=== PATIENT | female | born 1970 | race American Indian/Alaskan Native ===

== ENCOUNTER 2019-03-23 05:45 | Inpatient (IN) | payer BC ==
--- NOTE | 2019-03-17 12:18 | Anesthesia Consultation ---
Anesthesia Consult and Med Hx Date of service: 03/17/19 - Airway Anesthetic Teeth Evaluation: Good ROM Head & Neck: Adequate Mental/Hyoid Distance: Adequate Mallampati Class: Class II Intubation Access Assessment: Probably Good - Pulmonary Exam CTA: Yes - Cardiac Exam Cardiac Exam: RRR - Pre-Operative Health Status ASA Pre-Surgery Classification: ASA2 Proposed Anesthetic Plan: General Nerve Block: TAP Block - Pulmonary Hx Smoking: No Hx Respiratory Symptoms: No - Cardiovascular System Hx Hypertension: Yes Hx Heart Attack/AMI: No Hx Percutaneous Transluminal Coronary Angioplasty (PTCA): No Hx Cardia Arrhythmia: No - Central Nervous System CVA: No Hx Psychiatric Problems: No - Gastrointestinal Hx Gastroesophageal Reflux Disease: No - Endocrine Hx Renal Disease: No Hx Liver Disease: No Hx Insulin Dependent Diabetes: No Hx Non-Insulin Dependent Diabetes: No Hx Thyroid Disease: No - Hematic Hx Anemia: Yes - Other Systems Hx Obesity: No - Additional Comments Anesthesia Medical History Comments: No hx anesthetic complications. BP elevated in during preassessment visit however BP well controlled at [employer] visit earlier today. Currently asymptomatic and denies issues with BP control on current regimen. Instructed to take antihypertensives DOS.
[2019-03-17 12:22] LABS: Basophils % (Auto) 0.4 % (0.0-1.8); Eosinophils % (Auto) 0.6 % (0.0-4.3); Hematocrit 34.5 % (30.3-42.9); Hemoglobin 11.8 gm/dl (10.1-14.3); Lymphocytes % (Auto) 16.7 % (13.4-35.0); Mean Corpuscular HGB Conc 34 % (30-34); Mean Corpuscular Volume 93 fl (79-97); Monocytes # (Auto) 0.4 K/mm3 (0.0-0.8); Monocytes % (Auto) 6.8 % (0.0-7.3); Platelet Count 348 K/mm3 (140-440); Red Blood Count 3.71 M/mm3 (3.65-5.03); Red Cell Distribution Width 13.6 % (13.2-15.2)
--- NOTE | 2019-03-22 17:55 | History and Physical Report ---
History of Present Illness Date of examination: 03/17/19 Chief complaint: Severe pelvic pain and abnormal uterine bleeding History of present illness: Past History : 1 Premature Births: 1 Living Children: 1 # 1 Delivery date: 2005 Weeks Gestation: 34 Delivery type: Delivery location: [facility] – [place] Infant Sex: Female Comments: Preeclampsia [employer] History Operations: Endometrial Ablation: (01/07/2017) Vein procedure (2018) (L) Abnormal PAP: negative Infection History HIV Risk Eval: no Hx of STD: None Active Medications (reviewed today): TELMISARTAN TABLET (TELMISARTAN TABS)/HCT 40MG () MULTIVITAMINS ORAL CAPSULE (MULTIPLE VITAMIN) AMLODIPINE BESYLATE TABLET (AMLODIPINE BESYLATE TABS) Current Allergies (reviewed today): IBUPROFEN (Moderate) Past Medical History: Reviewed history from 02/18/2019 and no changes required: Hypertension Diverticulosis Past Surgical History: Reviewed history from 02/18/2019 and no changes required: Endometrial Ablation: (01/07/2017) Vein procedure (2017) (L) Social History: Reviewed history from 01/06/2019 and no changes required: Patient is Smoking History: Patient has never smoked. Risk Factors: Smoked Tobacco Use: Never smoker Smokeless Tobacco Use: Never Passive smoke exposure: no Drug use: no HIV high-risk behavior: no Alcohol use: yes Exercise: no Seatbelt use: 100 % PAP Smear History: Date of Last PAP Smear: 03/11/2018 Mammogram History: Date of Last Mammogram: 03/11/2019 Review of Systems General Denies fever, chills, sweats, anorexia, fatigue, weakness, malaise, weight loss and sleep disorder. Complains of pelvic pain and painful periods. Denies vaginal discharge, incontinence, dysuria, hematuria, urinary frequency, amenorrhea, menorrhagia, abnormal vaginal bleeding, genital sores, decreased libido, painful sex, urinary urgency, hot flashes, vaginal dryness, vaginal itching and vaginal odor. CV Denies chest pains, palpitations, syncope, dyspnea on exertion, orthopnea, PND and peripheral edema. Resp Denies cough, dyspnea at rest, excessive sputum, hemoptysis, wheezing and pleurisy. GI Denies nausea, vomiting, diarrhea, constipation, change in bowel habits, abdominal pain, melena, hematochezia, jaundice, gas/bloating, indigestion/heartburn, dysphagia and odynophagia. Endo Denies cold intolerance, heat intolerance, polydipsia, polyphagia, polyuria and unusual weight change. Breast Denies left breast lump, right breast lump, nipple discharge, bloody discharge from nipple, breast pain, abnormal mammogram and breast enlargement. MS Denies back pain, joint pain, joint swelling, muscle cramps, muscle weakness, stiffness, arthritis, sciatica, restless legs, leg pain at night and leg pain with exertion. Derm Denies rash, itching, dryness and suspicious lesions. Neuro Denies paralysis, paresthesias, headache, seizures, tremors, vertigo, transient blindness, frequent falls, frequent headaches and difficulty walking. Psych Denies depression, anxiety, irritability and mood swings. Eyes Denies blurring, diplopia, irritation, discharge, vision loss, eye pain and photophobia. ENT Denies earache, ear discharge, tinnitus, decreased hearing, nasal congestion, nosebleeds, sore throat and hoarseness. Allergy Denies urticaria, allergic rash, hay fever and recurrent infections. Heme Denies abnormal bruising, bleeding and enlarged lymph nodes. Physical Exam Appearance: well developed, well nourished, no acute distress Other Exams Lungs: no rales, rhonchi, or wheezes Heart: S1, S2, no murmur, rub, or gallop Impression & Recommendations: Problem # 1: Pelvic and perineal pain (ICD-789.00) (SCP12-F42.2) I had another long discussion with her to clearly emphasize that hysterectomy with (B) salpingectomy will alleviate her bleeding however her pain may persist, recur or change in nature, especially if she found to have endometriosis. She states she has pain in her (L) hip that radiates to her left leg when she has her periods. She again declined a trial of GnRH agonist to determine if the pain may be associated with endometrosis. She declines GRACIE's, referral to pain managment and/or ortho. She desires ovarian conservation. She was informed she may require surgery later to have her ovaries removed for a benign or mailgnant condition. Problem # 2: Irregular menses (ICD-626.4) (QNL82-O81.5) Diagnosis explained to patient . Discussed with patient various medical, surgical and radiological therapies common for treatment including, but not limited to, hysterectomy, hormone therapy, laparoscopy. Discussed risks and benefits of laparotomy, laparoscopy, vaginal and robotic assisted approaches for hysterectomies. Patient desires definitive treatment in the form of robot assisted laparoscopic total hysterectomy. The risks and alternatives for this surgery were reviewed with the patient. She was informed of the risks of the surgery including, but not limited to, pain, infection, bleeding possibly heavy enough to require a blood transfusion with associated risks of infections (hepatitis and HIV) and transfusion reactions, possible damage to bowel, bladder or ureter(s). Patient understands that this surgery with make her sterile. Indications to abort a robotic/laparoscopic procedure and perform an open procedure were explained. Patient understands if her ovaries are removed she will become menopausal. Patient advised the small risks of spreading of malignancy if morcellation is required during the surgery patient understands and approves performing if necessary. Questions answered. Consent reviewed and signed The patient was instructed/informed the following: The normal length of hospital stay for this procedure. Nothing to eat or drink after midnight the evening prior to surgery. Clear liquids the day before surgery. Fleets enema the evening prior to surgery Pre-op instruction sheets given. Questions were encouraged and answered. Patient voiced understanding and agrees with plan of care. Counseling and coordination of care was >50% of the face to face time. The total face to face time for this visit was ~40 minutes. Medications Added to Medication List This Visit: 1) Telmisartan Tablet (telmisartan Tabs)/hct 40mg Medications and Allergies Allergies Allergy/AdvReac Type Severity Reaction Status Date / Time No Known Allergies Allergy Unverified 03/11/19 17:56 Home Medications Medication Instructions Recorded Confirmed Last Taken Type Gabapentin [Neurontin] 100 mg PO BID PRN 03/11/19 03/11/19 Unknown History Multivitamin [Multiple Vitamins] 1 each PO DAILY 03/11/19 03/11/19 Unknown History Naproxen [Naprosyn TAB] 500 mg PO BID PRN 03/11/19 03/11/19 Unknown History Telmisartan 40 mg PO DAILY 03/11/19 03/11/19 Unknown History amLODIPine [Norvasc] 5 mg PO DAILY 03/11/19 03/11/19 Unknown History Active Meds: Active Medications Amlodipine Besylate (Norvasc) 5 mg PO DAILY STEFFI Celecoxib (Celebrex) 200 mg PO PREOP NR Stop: 03/23/19 23:00 Fentanyl (Sublimaze) 100 mcg IV ONCE PRN PRN Reason: sedation for nerve block Gabapentin (Neurontin) 300 mg PO PREOP NR Stop: 03/23/19 23:00 Lactated Ringer's (Lactated Ringers) 1,000 mls @ 100 mls/hr IV DIRECT STEFFI Cefazolin Sodium (Ancef/Sterile Water 2 Gm/20 Ml) 2 gm in 20 mls @ 80 mls/hr IV PREOP NR; Protocol Midazolam HCl (Versed) 2 mg IV PREOP NR Stop: 03/23/19 23:01 Miscellaneous Medication (Telmisartan [Telmisartan]) 40 mg PO DAILY STEFFI Exam Vital Signs Temp Pulse Resp BP Pulse Ox 99.1 F 79 20 182/105 99 03/17/19 11:48 03/17/19 11:48 03/17/19 11:48 03/17/19 11:48 03/17/19 11:48 Results - Labs 03/17/19 12:00 Assessment and Plan - Patient Problems (1) 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
[~2019-03-23 05:45] MED LIST: ANCEF/STERILE WATER 2 GM/20 ML 2 GM/20 ML SYRINGE IV NR
[2019-03-23] MEDS ORDERED: VERSED IV NR (06:00)
[2019-03-23] MEDS ORDERED: NEURONTIN PO NR (06:00)
[2019-03-23] MEDS ORDERED: SUBLIMAZE IV PRN (06:00)
[2019-03-23] MEDS ORDERED: LACTATED RINGERS 1,000 ML IV SCH (06:00)
[2019-03-23] MEDS ORDERED: ZEMURON IV ONE (07:13)
[2019-03-23] MEDS ORDERED: XYLOCAINE MPF 2% ONE (07:13)
[2019-03-23] MEDS ORDERED: DILAUDID ONE (07:14)
[2019-03-23] MEDS ORDERED: DIPRIVAN 10 MG/ML IV ONE (07:14)
[2019-03-23] MEDS ORDERED: MARCAINE 0.25% INFILTRATI ONE (07:20)
[2019-03-23] MEDS ORDERED: DECADRON ONE ×2 (07:21→08:21)
[2019-03-23 07:22] LABS: Calcium 9.5 mg/dL (8.4-10.2)
[2019-03-23] MEDS ORDERED: NEOSPORIN GU IR ONE ×2 (07:28→08:50)
--- NOTE | 2019-03-23 07:32 | Anesthesia Day of Surgery ---
Anesthesia Day of Surgery - Day of Surgery Patient Examined: Yes Patient H&P Reviewed: Yes Patient is NPO: Yes
[2019-03-23] MEDS ORDERED: LOPRESSOR IV ONE (08:00)
[2019-03-23] MEDS ORDERED: ZOFRAN ONE (08:21)
[2019-03-23] MEDS ORDERED: NACL 0.9% IR ONE ×2 (08:51)
[2019-03-23] MEDS ORDERED: NON-FORMULARY (Telmisartan [Telmisartan] 40 MG) PO SCH (10:00)
[2019-03-23] MEDS ORDERED: COZAAR PO SCH (10:00)
[2019-03-23] MEDS ORDERED: NORVASC PO SCH (10:00)
[2019-03-23] MEDS ORDERED: ALBURX 25% (ALBUMIN) IV ONE (10:11)
[2019-03-23] MEDS ORDERED: NEO SYNEPHRINE/NS Syringe(OR USE) IV ONE (10:14)
[2019-03-23] MEDS ORDERED: SUBLIMAZE ONE (11:00)
[2019-03-23] MEDS ORDERED: MONSEL'S TP ONE ×2 (11:24→11:25)
[2019-03-23] MEDS ORDERED: ZOFRAN IV PRN (12:11)
[2019-03-23] MEDS ORDERED: REGLAN IV PRN (12:11)
[2019-03-23] MEDS ORDERED: NARCAN 0.4 MG/1 ML IV PRN (12:11)
[2019-03-23] MEDS ORDERED: APRESOLINE ONE (12:12)
[2019-03-23] MEDS: DILAUDID IV PRN ×2 (12:27→12:50)
[2019-03-23] MEDS ORDERED: CATAPRES PO PRN (12:33)
--- NOTE | 2019-03-23 12:37 | Consultation ---
History of Present Illness - Reason for Consult acute renal failure, chronic renal failure Requesting physician: JUAN M MEDLEY - History of Present Illness 48yo female with history of htn, has cr of 2.8 post hysterectomy and appendectomy ROS: General Denies fever, chills, sweats, anorexia, fatigue, weakness, malaise, weight loss and sleep disorder. Complains of pelvic pain and painful periods. Denies vaginal discharge, incontinence, dysuria, hematuria, urinary frequency, amenorrhea, menorrhagia, abnormal vaginal bleeding, genital sores, decreased libido, painful sex, urinary urgency, hot flashes, vaginal dryness, vaginal itching and vaginal odor. CV Denies chest pains, palpitations, syncope, dyspnea on exertion, orthopnea, PND and peripheral edema. Resp Denies cough, dyspnea at rest, excessive sputum, hemoptysis, wheezing and pleurisy. GI Denies nausea, vomiting, diarrhea, constipation, change in bowel habits, abdominal pain, melena, hematochezia, jaundice, gas/bloating, indigestion/heartburn, dysphagia and odynophagia. Endo Denies cold intolerance, heat intolerance, polydipsia, polyphagia, polyuria and unusual weight change. Breast Denies left breast lump, right breast lump, nipple discharge, bloody discharge from nipple, breast pain, abnormal mammogram and breast enlargement. MS Denies back pain, joint pain, joint swelling, muscle cramps, muscle weakness, stiffness, arthritis, sciatica, restless legs, leg pain at night and leg pain with exertion. Derm Denies rash, itching, dryness and suspicious lesions. Neuro Denies paralysis, paresthesias, headache, seizures, tremors, vertigo, transient blindness, frequent falls, frequent headaches and difficulty walking. Psych Denies depression, anxiety, irritability and mood swings. Eyes Denies blurring, diplopia, irritation, discharge, vision loss, eye pain and photophobia. ENT Denies earache, ear discharge, tinnitus, decreased hearing, nasal con gestion, nosebleeds, sore throat and hoarseness. Allergy Denies urticaria, allergic rash, hay fever and recurrent infections. Heme Denies abnormal bruising, bleeding and enlarged lymph nodes. Past History Past Medical History: hypertension Past Surgical History: Social history: denies: prescription drug abuse, IV drug use Family history: hypertension Medications and Allergies Allergies Allergy/AdvReac Type Severity Reaction Status Date / Time No Known Allergies Allergy Unverified 03/11/19 17:56 Home Medications Medication Instructions Recorded Confirmed Last Taken Type Gabapentin [Neurontin] 100 mg PO BID PRN 03/11/19 03/23/19 03/19/19 09:00 History Multivitamin [Multiple Vitamins] 1 each PO DAILY 03/11/19 03/23/19 03/22/19 07:00 History Naproxen [Naprosyn TAB] 500 mg PO BID PRN 03/11/19 03/23/19 03/22/19 07:00 History Telmisartan 40 mg PO DAILY 03/11/19 03/23/19 03/22/19 07:00 History amLODIPine [Norvasc] 5 mg PO DAILY 03/11/19 03/23/19 03/23/19 06:45 History Active Meds: Active Medications Amlodipine Besylate (Norvasc) 5 mg PO DAILY STEFFI Celecoxib (Celebrex) 200 mg PO PREOP NR Stop: 03/23/19 23:00 Last Admin: 03/23/19 06:45 Dose: 200 mg Documented by: Clonidine HCl (Catapres) 0.1 mg PO Q6HR PRN PRN Reason: Hypertension Fentanyl (Sublimaze) 100 mcg IV ONCE PRN PRN Reason: sedation for nerve block Last Admin: 03/23/19 07:19 Dose: 100 mcg Documented by: Gabapentin (Neurontin) 300 mg PO PREOP NR Stop: 03/23/19 23:00 Last Admin: 03/23/19 06:45 Dose: 300 mg Documented by: Hydralazine HCl (Apresoline) 10 mg IV ONCE ONE Stop: 03/23/19 13:12 Hydromorphone HCl (Dilaudid) 0.5 mg IV Q10MIN PRN PRN Reason: Pain , Severe (7-10) Stop: 03/23/19 16:00 Lactated Ringer's (Lactated Ringers) 1,000 mls @ 100 mls/hr IV DIRECT STEFFI Last Admin: 03/23/19 06:55 Dose: 100 mls/hr Documented by: Cefazolin Sodium (Ancef/Sterile Water 2 Gm/20 Ml) 2 gm in 20 mls @ 80 mls/hr IV PREOP NR; Protocol Stop: 03/23/19 23:00 Sodium Chloride (Nacl 0.9% 1000 Ml) 1,000 mls @ 42 mls/hr IV DIRECT STEFFI Metoclopramide HCl (Reglan) 10 mg IV Q6H PRN PRN Reason: N/V if NPO. Midazolam HCl (Versed) 2 mg IV PREOP NR Stop: 03/23/19 23:01 Last Admin: 03/23/19 07:19 Dose: 2 mg Documented by: Morphine Sulfate (Morphine Car Icer 30mg/30ml) 0 mg IV DIRECT STEFFI; Protocol Naloxone HCl (Narcan 0.4 Mg/1 Ml) 0.1 mg IV Q2MIN PRN PRN Reason: Res Rate </= 8 or 02 SAT < 92% Ondansetron HCl (Zofran) 4 mg IV Q8H PRN PRN Reason: N/V unrelieved by Reglan Exam - Vital Signs Vital signs: Vital Signs Temp Pulse Resp BP Pulse Ox 99.1 F 79 20 182/105 99 03/17/19 11:48 03/17/19 11:48 03/17/19 11:48 03/17/19 11:48 03/17/19 11:48 - General Appearance General appearance: well-developed, well-nourished, appears stated age EENT: PERRL, mucous membranes moist Neck: Present: neck supple, trachea midline. Absent: JVD/HJR, Masses Respiratory: Clear to Ascultation Heart: regular, S1S2 Gastrointestinal: Present: hypoactive bowel sounds Integumentary: no rash, warm and dry Neurologic: no focal deficit, alert and oriented x3, gait normal, strength 5/5 Musculoskeletal: Absent: deformities, joint swelling Psychiatric: mood/affect appropriate, cooperative Results - Lab Results 03/17/19 12:00 03/23/19 06:45 Most recent lab results Calcium 9.5 mg/dL (8.4-10.2) 03/23/19 06:45 Assessment and Plan Impression: * SULTANA on ?ckd * accelerated htn * s/p hysterectomy * bacteruria Plan: * gentle ivfs * control bp, stop daja and avoid nephrotoxins * follow up renal us and lytes * ua noted, iv abx, received ancef, would benefit from gram neg coverage, rocephin for now * strict i/os and daily lytes * 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
--- NOTE | 2019-03-23 12:40 | Post Operative Note ---
Pre-op diagnosis: pelvic pain, AUB Post-op diagnosis: other (stage IV endometriosis, renal disease, uncontrolled hypertension) Findings: stage IV endometriosis, Procedure: robotic assisted hysterectomy converted to abdominal supracervical hysterectomy (B) salpingectomy (R) ovarian cystectomy appendectomy Friable posterior vaginal cul-de-sac tissue Repair rectal colon serosal denuded tissue Anesthesia: GETA Surgeon: JUAN M MEDLEY (Gene Queendar) Estimated blood loss: other (600mL) Pathology: list (uterus, internal cervical os, (B) fallopian tubes, (R) ovarian cyst, appendix, vaginal tissue) Specimen disposition: to lab Condition: stable Disposition: PACU
[2019-03-23] MEDS ORDERED: MORPHINE PCA 30MG/30ML IV SCH (13:00)
[2019-03-23] MEDS ORDERED: NACL 0.9% 1000 ML 1,000 ML IV SCH ×2 (13:00→22:00)
[2019-03-23] MEDS ORDERED: APRESOLINE IV ONE (13:11)
[2019-03-23 14:10] LABS: Bacteria,Urine 1+ /HPF (Negative); Bilirubin,Urine NEG (Negative); Blood,Urine SM (Negative); Color,Urine Straw (Yellow); Protein,Urine <15 mg/dL mg/dL (Negative); Urobilinogen,Urine < 2.0 mg/dL (<2.0)
[2019-03-23 14:17] LABS: Creatinine,Urine 54.1 mg/dL (0.1-20.0)
[2019-03-23] MEDS ORDERED: SODIUM CHLORIDE FLUSH SYRINGE 10 ML IV PRN (14:51)
[2019-03-23] MEDS ORDERED: CALAN IV ONE (14:54)
[2019-03-23] MEDS ORDERED: MORPHINE ONE (15:06)
[2019-03-23] MEDS: MORPHINE IV SCH ×3 (15:06→23:59)
--- NOTE | 2019-03-23 16:31 | Operative Report ---
Operative Report Operative Report: Date: 03/23/2019 Preoperative diagnosis: 1. Severe pelvic pain 2. Abnormal uterine bleeding Postoperative diagnosis: 1. Severe pelvic pain 2. Abnormal uterine bleeding 3. Stage IV endometriosis A. Obliteration of the posterior cul-de-sac with dense adhesions B. Endometriotic implants involving the pelvic sidewalls, ovaries, left fallopian tube, bladder, possible appendix 4. Right ovarian endometriomas 5. Elevated blood pressures 6. Elevated creatinine 7. Abnormal appearing appendix 8. Friable vaginal tissue involving the posterior and right lateral fornices 9. Superficial serosal tear of the sigmoid colon Procedure: 1. Robot-assisted laparoscopic hysterectomy converted to abdominal supracervical hysterectomy 2. Bilateral salpingectomy 3. Right ovarian cystectomy 4. Appendectomy 5. Lysis of adhesions 6. Repair of colon serosal tear Surgeon: 1. Rebeca Fuentes MD 2. Silvina Queen MD 3. Jeremy De Los Santos M.D. Supervisory Clerk: Anesthesiologist: Markus Wiggins M.D. Anesthesia: General endotracheal anesthesia EBL: Approximately 600 mL Findings: See above Procedure: Patient was taken to the OR and placed in the supine position. General anesthesia was induced and an oral gastric tube was placed. Her neck and head were placed on foam support. Foam eye protection with goggles were secured in place. Then foam face protection was placed and secured. Foam shoulder pads were then positioned on her shoulders for Trendelenburg positioning. She was then placed in dorsolithotomy position. Exam under anesthesia firmness in the posterior vaginal fornix, fixed uterus, no adnexal masses palpated, friable tissue of the posterior right lateral vaginal fornices. The abdomen and vagina were then prepped and draped in the usual sterile fashion. Timeout was performed. A Vela catheter was inserted into the bladder with drainage of clear yellow urine. The operative speculum was introduced into the vagina and the anterior lip of the cervix was grasped with single-toothed tenaculum. The uterus was sounded to 8 cm. The cervix was progressively dilated to allow the large V care uterine manipulator. The bulb of the manipulator was inflated and the speculum and tenaculum were removed. The cup of the manipulator was placed around the cervix and the blue occluder of the manipulator was properly positioned in the vagina. A laparotomy sponge that was saturated with a solution of polymyxin and saline was placed in the vagina to ensure pneumoperitoneum. Sterile gloves were placed and attention was turned to the abdomen. A 10 mm vertical supraumbilical incision was made approximately 10 cm superior to the elevated fundus of the uterus. A 10 mm trocar with the laparoscope and camera attached was introduced through this incision under direct visualization. The abdomen was insufflated. No obvious bowel, bladder, ureteral, or major vascular injury was noted. The patient was then placed in steep Trendelenburg position and the following trochars were placed under direct visualization: 8 mm robotic trochars were placed through incisions made in the bilateral midclavicular lower abdominal region approximately 10 cm lateral and approximately 2 cm below the midline incision, and a 5 mm trocar was placed through an incision made in the right lower lateral pelvis approximately 2 cm superior to the iliac crest. The 10 mm laparoscope was then replaced by a 5 mm laparoscope that was placed through the 5 millimeter lateral trocar. The 12 mm trocar was then removed in the Ravi Lau fascial closure device was placed through the incision and a 0 Vicryl was placed through the fascia. Once the suture was secured the 12 mm trocar was reintroduced. Once the trochars were in the appropriate positions, the the da Antonio robot system was engaged. The EndoShears and bipolar device was placed through the 8 mm trochars and positioned then attention was turned to the console. The uterus was elevated and bilateral salpingectomy was performed. Each tube was removed through the 5 mm trocar and sent to pathology in separate containers. Then the utero-ovarian ligaments were clamped. cauterized and incised bilaterally using 30 W of energy. Then the round ligaments were clamped, cauterized and incised bilaterally. The anterior leaf of the broad ligament was elevated and careful blunt and sharp dissection the bladder flap was created and dissected away from the lower uterine segment and cervix. The right ovary was densely adhered to the posterior aspect of the uterus. With both blunt and sharp dissection ovary was released. During the release of the ovary dark thick fluid released consistent with endometrioma. The pelvis was irrigated with warm normal saline. Once the ovary was released it was clear that the sigmoid colon was densely adhered to the posterior aspect of the uterus and cervix. Due to concerns for visualization and therefore injury to the sigmoid colon at Dr. De Los Santos was consulted. Upon inspection there was concern that proceeding laparoscopically with increase her risk for sigmoid colon injury, therefore decision was made to convert to laparotomy. The robot was disengaged, the instruments were removed, the abdomen was desufflated and the trochars were removed. After an appropriate count of instruments and sponges and patient was taken out of Trendelenburg position, a Pfannenstiel incision was made and extended to the fascia which was incised and extended lateral direction. The overlying fascia was sharply dissected away from underlying rectus muscles and superior inferior direction. The midline was entered with blunt and sharp dissection. The O'Larry-O'Tobias self-retaining tractor was placed. Small intestines were placed into the upper abdomen with most laparotomy sponges and retained in place with the abdominal retractor. The bladder blade was placed. Uterus was grasped single tooth tenaculum and elevated. The bladder was further dissected off the lower uterine segment and cervix with both blunt and sharp dissection. The uterine vessels were then clamped cut and suture ligated bilaterally. The excessively dense adhesions in the posterior cul-de-sac were palpated and dissected away from the lower uterine segment and cervix with sharp dissection. At this point the cardinal ligaments were clamped cut and suture ligated bilaterally. Due to further concern for injury to the sigmoid colon further dissection was performed in order to remove the cervix, the decision was made to perform supracervical hysterectomy. The uterus and internal cervical os were excised. The cervix was grasped with single-toothed tenaculum, the remaining cervical os was ablated using 40 W of energy and suture ligated with 0 Vicryl in multiple interrupted [id number] stitches. Normal saline was placed in the pelvis and air was placed in the rectum with an Asepto syringe. No air bubbles were noted in the fluid. This point Dr. De Los Santos presented in order to inspect the colon and appendix (please see his dictation). Attention was turned again to the pelvis. The pelvis was irrigated with warm saline. Hemostasis is noted. Jose was placed ensure hemostasis. Attention was then turned to the enlarged right ovary where another cyst was palpated and cystectomy was performed. The ovary was made hemostatic with 3-0 Vicryl in a running interlocking stitch. Interceed was placed in the pelvis. Once hemostasis is noted procedure was ended. The O'Larry-O'Tobias self-retaining retractor was removed. Laparotomy sponge count was performed and noted to be correct. The patient was taken to Trendelenburg position and the rectus muscles were approximated using 0 Vicryl interrupted simple stitchx3 . Once hemostasis was noted the fascia was reapproximated using 0 Vicryl in a simple running stitch from lateral to midline. This incision was then reapproximated using 4-0 Vicryl in a subcuticular manner. The laparotomy incisions were reapproximated using 4-0 Monocryl also in a subcuticular manner. Attention was then turned to the vagina where moderate amount of bleeding was noted. The speculum was placed in the cervix itself was normal with no bleeding. However there was multiple areas involving the posterior fornix and lateral fornix of the vagina had a steady flow of bleeding that was made hemostatic with Monsel solution and pressure. Once hemostasis was noted, the procedure was ended, clear yellow urine was noted to drain into the Vela catheter. Patient was taken to recovery room stable condition.
[2019-03-23] MEDS: D5/0.45NS 1,000 ML IV SCH (17:45)
--- NOTE | 2019-03-23 20:43 | Event Note ---
Date: 03/23/19 DOS: Patient resting in bed, alert and appropriately responsive. Requesting ice chips. +BS slightly decreased, Incision c/d/i, scant brownisn discharge on pad. no evidence of active bleeding. Operative findings and procedures explained. Plan of care discussed. Questions encouraged and answered. She voiced understanding and agrees with plan of care.
--- NOTE | 2019-03-23 20:58 | Event Note ---
Date: 03/23/19 UO 250mL, clear yellow, patient states sprague was emptied by Latoya this pm however no documentation found. Will continue close observation.
[2019-03-23] MEDS ORDERED: NEURONTIN PO PRN (21:28)
[2019-03-23] MEDS ORDERED: CATAPRES-TTS PATCH TD SCH (22:00)
--- NOTE | 2019-03-23 22:28 | Event Note ---
Date: 03/23/19 Gen Surg Dictation#[id number]
[2019-03-23] MEDS: ANCEF/NS 1 GM/50 ML 1 GM/50 ML BAG IV SCH (22:32)
[2019-03-23] MEDS: SODIUM CHLORIDE FLUSH SYRINGE 10 ML IV SCH (22:34)
--- NOTE | 2019-03-23 22:56 | Operative Report ---
PREOPERATIVE DIAGNOSIS: Serosal tear of rectum. POSTOPERATIVE DIAGNOSIS: Serosal tear of rectum. PROCEDURES: 1. Repair of serosal injury to rectum. 2. Appendectomy. ATTENDING PHYSICIAN: Jeremy De Los Santos MD ANESTHESIA: General. ESTIMATED BLOOD LOSS: Minimal. FINDINGS: The patient had extensive endometriosis changes and adhesions in the pelvis. The distal portion of the rectum was densely adhered to the anterior pelvic wall. There were small serosal tears noted on the anterior surface of the rectum. The appendix appeared as it had some mild superficial inflammatory changes that were felt to be on the surface, perhaps related to her endometriosis. SPECIMEN: Appendix. DRAINS: None. COMPLICATIONS: Stable, transferred to Recovery. INDICATIONS: This is a 48-year-old female who presented electively for robotic hysterectomy. I was called in twice to the case. The first time is to see if a plane could be developed with the robot between the rectum and the uterus. At that point, the decision was made to convert to an open case due to the dense adhesions and then I was called the second time in to evaluate the rectum for a possible serosal injury. The patient was already on the table and under anesthesia. Therefore, I could not speak to her beforehand. OPERATIVE NOTE: I scrubbed into the case, the second time, the first time, I simply was on the console and evaluated the rectal area. My assessment was that with the blood that was obscuring the view, it would be a difficult dissection and risky, therefore it may be best to convert to open, which Dr. Fuentes did. I then returned later after the uterus had been removed to evaluate the rectum, distally there did appear to be some small serosal injuries. It was difficult to tell what was serosa versus what were adjacent fibrotic tissue, as a precaution where it looked to be serosal injuries, I reinforced that area with a 3-0 silk stitch. There were two areas that I reinforced. Of note, Dr. Fuentes had tested the rectum by insufflating air through the rectum and having water in the pelvis. She reports that there was no bubbling of air. There was no suggestion of any leak. Therefore, we felt comfortable that this was just a partial thickness injury. After that was done, everything looked very good. We then turned our attention to the appendix. Our discussion was that as this patient has chronic pelvic pain, one day, she may have a situation, whereby someone is concerned that the appendix is causing the problem. This would be a very difficult abdomen to get back into. We have very easy access to the appendix right now as it is clearly in our view. I thought that to safer another operation and the risk was minimal to remove it that it would be best to remove it now and take it out of the equation in the future, so she does not have a potential unnecessary operation. Therefore, Dr. Fuentes and I agreed that we should just move forward with appendectomy. I dissected out the mesoappendix at the base of the appendix. Mesoappendix was clamped with a right angle clamp. The base of the appendix was clamped that portion of the appendix was crushed and then the clamp was moved upward. Another clamp was placed on the inferior aspect. Appendix was divided. The mesoappendix was ligated with a 2-0 silk suture using a Savanna stitch and then the tissue was sharply divided. Specimen was passed off the table in sterile fashion. We had good hemostasis at the mesoappendix. I used a 3-0 Prolene stitch to ligate the base of the appendix. We cauterized the exposed mucosa and then I used another 3-0 Prolene to create a pursestring suture around the base and then we dunked and then we invaginated the base and tied down the suture to reinforce this area, I put two more sutures closing the overlying bowel to reinforce that area. Everything looked very good. We had good hemostasis. There were no other issues. The case was turned back over to Dr. Fuentes. JOB# [id number] ERIKA/NÉSTOR SALAS
[2019-03-24] MEDS: MORPHINE IV SCH (04:36)
[2019-03-24] MEDS: ANCEF/NS 1 GM/50 ML 1 GM/50 ML BAG IV SCH (04:40)
[2019-03-24 06:14] LABS: Basophils % (Auto) 0.1 % (0.0-1.8); Hematocrit 25.1 % (30.3-42.9); Hemoglobin 8.5 gm/dl (10.1-14.3); Lymphocytes # (Auto) 0.7 K/mm3 (1.2-5.4); Lymphocytes % (Auto) 7.1 % (13.4-35.0); Mean Corpuscular HGB Conc 34 % (30-34); Mean Corpuscular Volume 94 fl (79-97); Monocytes % (Auto) 11.1 % (0.0-7.3); Platelet Count 297 K/mm3 (140-440); Red Blood Count 2.67 M/mm3 (3.65-5.03); Red Cell Distribution Width 13.3 % (13.2-15.2)
[2019-03-24] MEDS: D5/0.45NS 1,000 ML IV SCH (06:31)
[2019-03-24 06:38] LABS: Albumin 3.7 g/dL (3.9-5); Calcium 8.6 mg/dL (8.4-10.2)
--- NOTE | 2019-03-24 07:20 | Consultation ---
History of Present Illness - Reason for Consult Consult date: 03/23/19 Medical management Requesting physician: JUAN M MEDLEY - History of Present Illness FOr medical managemt of HTn and ARF Patient is s/p robotic assisted hysterectomy converted to abdominal suprac ervical hysterectomy (B) salpingectomy (R) ovarian cystectomy appendectomy Friable posterior vaginal cul-de-sac tissue Repair rectal colon serosal denuded tissue Post op doing well. Past History Past Medical History: hypertension Past Surgical History: Social history: denies: prescription drug abuse, IV drug use Family history: hypertension Medications and Allergies Allergies Allergy/AdvReac Type Severity Reaction Status Date / Time No Known Allergies Allergy Unverified 03/11/19 17:56 Home Medications Medication Instructions Recorded Confirmed Last Taken Type Gabapentin [Neurontin] 100 mg PO BID PRN 03/11/19 03/23/19 03/19/19 09:00 History Multivitamin [Multiple Vitamins] 1 each PO DAILY 03/11/19 03/23/19 03/22/19 07:00 History Naproxen [Naprosyn TAB] 500 mg PO BID PRN 03/11/19 03/23/19 03/22/19 07:00 History Telmisartan 40 mg PO DAILY 03/11/19 03/23/19 03/22/19 07:00 History amLODIPine [Norvasc] 5 mg PO DAILY 03/11/19 03/23/19 03/23/19 06:45 History Active Meds: Active Medications Amlodipine Besylate (Norvasc) 5 mg PO DAILY [facility] Clonidine HCl (Catapres) 0.1 mg PO Q6HR PRN PRN Reason: Hypertension Clonidine HCl (Catapres-Tts Patch) 0.1 mg TD [facility] Last Admin: 03/23/19 22:33 Dose: 0.1 mg Documented by: Gabapentin (Neurontin) 100 mg PO BID PRN PRN Reason: Pain , Severe (7-10) Dextrose/Sodium Chloride (D5/0.45ns) 1,000 mls @ 75 mls/hr IV DIRECT [facility] Last Admin: 03/24/19 06:31 Dose: 75 mls/hr Documented by: Metoclopramide HCl (Reglan) 10 mg IV Q6H PRN PRN Reason: N/V if NPO. Morphine Sulfate (Morphine Cremator 30mg/30ml) 0 mg IV DIRECT STEFFI; Protocol Morphine Sulfate (Morphine) 2 mg IV Q4H PRN PRN Reason: Pain, Moderate (4-6) Naloxone HCl (Narcan 0.4 Mg/1 Ml) 0.1 mg IV Q2MIN PRN PRN Reason: Res Rate </= 8 or 02 SAT < 92% Ondansetron HCl (Zofran) 4 mg IV Q8H PRN PRN Reason: N/V unrelieved by Reglan Pantoprazole Sodium (Protonix) 40 mg IV QDAY STEFFI Sodium Chloride (Sodium Chloride Flush Syringe 10 Ml) 10 ml IV BID STEFFI Last Admin: 03/23/19 22:34 Dose: 10 ml Documented by: Sodium Chloride (Sodium Chloride Flush Syringe 10 Ml) 10 ml IV PRN PRN PRN Reason: LINE FLUSH Review of Systems All systems: negative Exam - Constitutional Vitals: Temp Pulse Resp BP Pulse Ox 98.7 F 107 H 22 152/101 100 03/24/19 04:00 03/24/19 04:00 03/24/19 04:36 03/23/19 22:33 03/24/19 04:00 General appearance: Present: no acute distress, well-nourished - EENT Eyes: Present: PERRL ENT: hearing intact, clear oral mucosa - Neck Neck: Present: supple, normal ROM - Respiratory Respiratory effort: normal Respiratory: bilateral: CTA - Cardiovascular Heart rate: 78 Rhythm: regular Heart Sounds: Present: S1 & S2. Absent: rub, click - Extremities Extremities: no ischemia, pulses intact, pulses symmetrical, No edema Peripheral Pulses: within normal limits - Abdominal General gastrointestinal: Present: soft, tender, non-distended, normal bowel sounds, hypoactive bowel sounds Female genitourinary: Present: normal - Rectal Rectal Exam: deferred - Integumentary Integumentary: Present: clear, warm, dry - Musculoskeletal Musculoskeletal: gait normal, strength equal bilaterally - Psychiatric Psychiatric: appropriate mood/affect, intact judgment & insight - Neurologic Neurologic: CNII-XII intact, moves all extremities Results - Labs CBC & Chem 7: 03/24/19 06:04 03/24/19 06:04 Labs: Abnormal lab results 03/23/19 03/23/19 03/23/19 Range/Units 06:45 13:40 13:40 RBC (3.65-5.03) M/mm3 Hgb (10.1-14.3) gm/dl Hct (30.3-42.9) % Lymph % (Auto) (13.4-35.0) % [place] % (Auto) (0.0-7.3) % Lymph # (1.2-5.4) K/mm3 [place] # (0.0-0.8) K/mm3 Seg Neutrophils % (40.0-70.0) % BUN 30 H (7-17) mg/dL Creatinine 2.8 H (0.7-1.2) mg/dL Glucose (65-100) mg/dL Albumin (3.9-5) g/dL Urine WBC (Auto) 9.0 H (0.0-6.0) /HPF Urine Creatinine 54.1 H (0.1-20.0) mg/dL 03/24/19 03/24/19 Range/Units 06:04 06:04 RBC 2.67 L (3.65-5.03) M/mm3 Hgb 8.5 L (10.1-14.3) gm/dl Hct 25.1 L (30.3-42.9) % Lymph % (Auto) 7.1 L (13.4-35.0) % [place] % (Auto) 11.1 H (0.0-7.3) % Lymph # 0.7 L (1.2-5.4) K/mm3 [place] # 1.0 H (0.0-0.8) K/mm3 Seg Neutrophils % 81.7 H (40.0-70.0) % BUN 29 H (7-17) mg/dL Creatinine 2.7 H (0.7-1.2) mg/dL Glucose 131 H (65-100) mg/dL Albumin 3.7 L (3.9-5) g/dL Urine WBC (Auto) (0.0-6.0) /HPF Urine Creatinine (0.1-20.0) mg/dL EKG SINUS RHYTHM VENTRICULAR PREMATURE COMPLEX LEFT BUNDLE BRANCH BLOCK ST ELEVATION SECONDARY TO IVCD Assessment and Plan - Patient Problems (1) HTN (hypertension) Current Visit: Yes Status: Chronic Qualifiers: Hypertension type: essential hypertension Qualified Code(s): I10 - Essential (primary) hypertension Plan to address problem: Patient initiated on Catapress patch No oral antihypertensives (2) SULTANA (acute kidney injury) Current Visit: Yes Status: Acute Plan to address problem: IV fluids for now Nephrology consult requested (3) DVT prophylaxis Current Visit: Yes Status: Acute Plan to address problem: On SCD's and GI prophylaxis
[2019-03-24] MEDS ORDERED: APRESOLINE IV PRN (07:27)
--- NOTE | 2019-03-24 07:30 | Progress Note ---
Assessment and Plan Assessment and plan: --Hypertension; moderate control Continue clonidine, IV hydralazine PRN for BP more than 155/90 Closely monitor --Acute renal failure; vasomotor nephropathy Mild improvement, gentle hydration, avoid nephrotoxins Follow up nephrology evaluation and recommendations Renal ultrasound if no improvement --Continue; hemoglobin dropped from 11.8-8.5 postoperatively Closely monitor H&H and transfuse as needed --Pelvic pain and abnormal uterine bleeding ; s/p robotic assisted hysterectomy converted to abdominal supracervical hysterectomy (B) salpingectomy (R) ovarian cystectomy appendectomy Friable posterior vaginal cul-de-sac tissue Repair rectal colon serosal denuded tissue Management per BREWING TECHNICIAN. --s/p appendectomy: Continue postop care per surgery --DVT prophylaxis; SCD --Obesity; BMI 30.5, advised weight reduction when medically stable Plan of care is reviewed with patient and her nurse History Interval history: Patient's exam and medical records reviewed Patient feels slightly better complaints of some pain in the abdomen Vital signs noted Hospitalist Physical - Constitutional Vitals: Temp Pulse Resp BP Pulse Ox 98.7 F 107 H 22 152/101 100 03/24/19 04:00 03/24/19 04:00 03/24/19 04:36 03/23/19 22:33 03/24/19 04:00 General appearance: Present: no acute distress, well-nourished - EENT Eyes: Present: PERRL, EOM intact - Neck Neck: Present: supple, normal ROM - Respiratory Respiratory effort: normal Respiratory: bilateral: diminished, negative: rales, rhonchi, wheezing - Cardiovascular Rhythm: regular Heart Sounds: Present: S1 & S2 - Extremities Extremities: no ischemia, No edema - Abdominal General gastrointestinal: soft, non-tender, non-distended, absent bowel sounds - Integumentary Integumentary: Present: clear, warm - Psychiatric Psychiatric: appropriate mood/affect, cooperative - Neurologic Neurologic: moves all extremities Results - Labs CBC & Chem 7: 03/24/19 19:07 03/24/19 06:04 Labs: Laboratory Last Values WBC 9.3 K/mm3 (4.5-11.0) 03/24/19 06:04 RBC 2.67 M/mm3 (3.65-5.03) L 03/24/19 06:04 Hgb 8.5 gm/dl (10.1-14.3) L 03/24/19 06:04 Hct 25.1 % (30.3-42.9) L 03/24/19 06:04 MCV 94 fl (79-97) 03/24/19 06:04 MCH 32 pg (28-32) 03/24/19 06:04 MCHC 34 % (30-34) 03/24/19 06:04 RDW 13.3 % (13.2-15.2) 03/24/19 06:04 Plt Count 297 K/mm3 (140-440) 03/24/19 06:04 Lymph % (Auto) 7.1 % (13.4-35.0) L 03/24/19 06:04 [place] % (Auto) 11.1 % (0.0-7.3) H 03/24/19 06:04 Eos % (Auto) 0.0 % (0.0-4.3) 03/24/19 06:04 Baso % (Auto) 0.1 % (0.0-1.8) 03/24/19 06:04 Lymph # 0.7 K/mm3 (1.2-5.4) L 03/24/19 06:04 [place] # 1.0 K/mm3 (0.0-0.8) H 03/24/19 06:04 Eos # 0.0 K/mm3 (0.0-0.4) 03/24/19 06:04 Baso # 0.0 K/mm3 (0.0-0.1) 03/24/19 06:04 Seg Neutrophils % 81.7 % (40.0-70.0) H 03/24/19 06:04 Seg Neutrophils # 7.6 K/mm3 (1.8-7.7) 03/24/19 06:04 Sodium 142 mmol/L (137-145) 03/24/19 06:04 Potassium 4.3 mmol/L (3.6-5.0) 03/24/19 06:04 Chloride 103.2 mmol/L (98-107) 03/24/19 06:04 Carbon Dioxide 25 mmol/L (22-30) 03/24/19 06:04 18 mmol/L 03/24/19 06:04 BUN 29 mg/dL (7-17) H 03/24/19 06:04 2.7 mg/dL (0.7-1.2) H 03/24/19 06:04 Estimated GFR 23 ml/min 03/24/19 06:04 11 % 03/24/19 06:04 Glucose 131 mg/dL (65-100) H 03/24/19 06:04 Calcium 8.6 mg/dL (8.4-10.2) 03/24/19 06:04 0.30 mg/dL (0.1-1.2) 03/24/19 06:04 AST 12 units/L (5-40) 03/24/19 06:04 ALT 9 units/L (7-56) 03/24/19 06:04 46 units/L (35-129) 03/24/19 06:04 6.6 g/dL (6.3-8.2) 03/24/19 06:04 3.7 g/dL (3.9-5) L 03/24/19 06:04 1.3 % 03/24/19 06:04 Straw (Yellow) 03/23/19 13:40 Clear (Clear) 03/23/19 13:40 6.0 (5.0-7.0) 03/23/19 13:40 Ur Specific [place] 1.010 (1.003-1.030) 03/23/19 13:40 <15 mg/dl mg/dL (Negative) 03/23/19 13:40 Neg mg/dL (Negative) 03/23/19 13:40 Neg mg/dL (Negative) 03/23/19 13:40 Sm (Negative) 03/23/19 13:40 Neg (Negative) 03/23/19 13:40 Neg (Negative) 03/23/19 13:40 < 2.0 mg/dL (<2.0) 03/23/19 13:40 Ur Leukocyte Esterase Sm (Negative) 03/23/19 13:40 9.0 /HPF (0.0-6.0) H 03/23/19 13:40 9.0 /HPF (0.0-6.0) 03/23/19 13:40 1+ /HPF (Negative) 03/23/19 13:40 54.1 mg/dL (0.1-20.0) H 03/23/19 13:40 74 mmol/L 03/23/19 13:40 Hep Bs Antigen Non-reactive (Negative) 03/23/19 13:28 Non-reactive (NonReactive) 03/23/19 13:28 Blood Type O POSITIVE 03/23/19 06:45 Antibody Screen Negative 03/23/19 06:45 Active Medications - Current Medications Current Medications: Generic Name Dose Route Start Last Admin Trade Name Freq PRN Reason Stop Dose Admin Clonidine HCl 0.1 mg 03/23/19 12:33 Catapres PO Q6HR PRN Hypertension Clonidine HCl 0.1 mg 03/23/19 22:00 03/23/19 22:33 Catapres-Tts Patch TD 0.1 mg Tu STEFFI Administration Gabapentin 100 mg 03/23/19 21:28 Neurontin PO BID PRN Pain , Severe (7-10) Dextrose/Sodium Chloride 1,000 mls @ 75 mls/hr 03/23/19 17:00 03/24/19 06:31 D5/0.45ns IV 75 mls/hr DIRECT STEFFI Administration Metoclopramide HCl 10 mg 03/23/19 12:11 Reglan IV Q6H PRN N/V if NPO. Morphine Sulfate 0 mg 03/23/19 13:00 Morphine Bread Icer 30mg/30ml IV DIRECT STEFFI Protocol Morphine Sulfate 2 mg 03/24/19 07:00 Morphine IV Q4H PRN Pain, Moderate (4-6) Naloxone HCl 0.1 mg 03/23/19 12:11 Narcan 0.4 Mg/1 Ml IV Q2MIN PRN Res Rate </= 8 or 02 SAT < 92% Ondansetron HCl 4 mg 03/23/19 12:11 Zofran IV Q8H PRN N/V unrelieved by Reglan Pantoprazole Sodium 40 mg 03/24/19 10:00 Protonix IV QDAY STEFFI Sodium Chloride 10 ml 03/23/19 22:00 03/23/19 22:34 Sodium Chloride Flush Syringe 10 Ml IV 10 ml BID STEFFI Administration Sodium Chloride 10 ml 03/23/19 14:51 Sodium Chloride Flush Syringe 10 Ml IV PRN PRN LINE FLUSH
--- NOTE | 2019-03-24 08:37 | Progress Note ---
Assessment and Plan - Patient Problems (1) S/P abdominal supracervical subtotal hysterectomy Current Visit: Yes Status: Acute Plan to address problem: POD#1 Doing well Slight tachycardia probably d/t EBL. No evidence of active bleeding. UO good, clear yellow(patient states sprague was emptied last pm and according to pm RN volume not documented) Will advance diet with flatus or sooner if ok with Dr. Burr (2) HTN (hypertension) Current Visit: Yes Status: Chronic Qualifiers: Hypertension type: essential hypertension Qualified Code(s): I10 - Essential (primary) hypertension Plan to address problem: BP's' much improved. Will transfer to floor if ok with Drs. Florian and Nehemias (3) SULTANA (acute kidney injury) Current Visit: Yes Status: Acute Plan to address problem: Continue care per Dr. 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 Subjective Date of service: 03/24/19 Patient Reports: Positive: no new complaints, no flatus, afebrile Objective Vital Signs - 12hr 03/23/19 03/23/19 03/23/19 20:59 22:00 22:33 Temperature Pulse Rate 112 H 114 H Pulse Rate [ Radial] Respiratory Rate Blood Pressure 152/101 O2 Sat by Pulse 100 Oximetry 03/23/19 03/24/19 03/24/19 23:59 00:00 04:00 Temperature 98.5 F 98.7 F Pulse Rate Pulse Rate [ 109 H 107 H Radial] Respiratory 22 19 20 Rate Blood Pressure O2 Sat by Pulse 100 100 Oximetry 03/24/19 04:36 Temperature Pulse Rate Pulse Rate [ Radial] Respiratory 22 Rate Blood Pressure O2 Sat by Pulse Oximetry - General physical appearance well developed, well nourished, no distress - Respiratory normal expansion, normal respiratory effort, clear to auscultation - Abdomen soft, bowel sounds hypoactive, not distended, not rebound, not guarding, wound (c/d/i, no s/s infection) - Genitourinary other (nothing on peripad, pad changed this am, use same pad all night with only scant brownis d/c according to patient) - Psychiatric oriented to person, oriented to place, speech is normal - Labs 03/24/19 06:04 03/24/19 06:04 Diabetes panel 03/24/19 Range/Units 06:04 Sodium 142 (137-145) mmol/L Potassium 4.3 (3.6-5.0) mmol/L Chloride 103.2 (98-107) mmol/L Carbon Dioxide 25 (22-30) mmol/L BUN 29 H (7-17) mg/dL Creatinine 2.7 H (0.7-1.2) mg/dL Glucose 131 H (65-100) mg/dL Calcium 8.6 (8.4-10.2) mg/dL AST 12 (5-40) units/L ALT 9 (7-56) units/L Alkaline Phosphatase 46 (35-129) units/L Total Protein 6.6 (6.3-8.2) g/dL Albumin 3.7 L (3.9-5) g/dL Calcium panel 03/24/19 Range/Units 06:04 Calcium 8.6 (8.4-10.2) mg/dL Albumin 3.7 L (3.9-5) g/dL Pituitary panel 03/24/19 Range/Units 06:04 Sodium 142 (137-145) mmol/L Potassium 4.3 (3.6-5.0) mmol/L Chloride 103.2 (98-107) mmol/L Carbon Dioxide 25 (22-30) mmol/L BUN 29 H (7-17) mg/dL Creatinine 2.7 H (0.7-1.2) mg/dL Glucose 131 H (65-100) mg/dL Calcium 8.6 (8.4-10.2) mg/dL Adrenal panel 03/24/19 Range/Units 06:04 Sodium 142 (137-145) mmol/L Potassium 4.3 (3.6-5.0) mmol/L Chloride 103.2 (98-107) mmol/L Carbon Dioxide 25 (22-30) mmol/L BUN 29 H (7-17) mg/dL Creatinine 2.7 H (0.7-1.2) mg/dL Glucose 131 H (65-100) mg/dL Calcium 8.6 (8.4-10.2) mg/dL Total Bilirubin 0.30 (0.1-1.2) mg/dL AST 12 (5-40) units/L ALT 9 (7-56) units/L Alkaline Phosphatase 46 (35-129) units/L Total Protein 6.6 (6.3-8.2) g/dL Albumin 3.7 L (3.9-5) g/dL
[2019-03-24] MEDS ORDERED: NEURONTIN PO PRN (09:30)
--- NOTE | 2019-03-24 09:31 | Progress Note ---
Assessment and Plan - Patient Problems (1) Serosal tear of colon Current Visit: Yes Status: Acute Plan to address problem: Pt stable. s/p serosal repair of anterior rectal wall. Okay to start clear liquid diet whenever WIRE HANGER is ready. (2) S/P appendectomy Current Visit: Yes Status: Acute Plan to address problem: Discussed the reasoning behind appendectomy. She acknowledged understanding. Subjective Date of service: 03/24/19 Patient Reports: Positive: no new complaints, still having pain, no flatus, other (thirsty. ) Objective Vital Signs - 12hr 03/23/19 03/23/19 03/23/19 22:00 22:33 23:59 Temperature Pulse Rate 112 H 114 H Pulse Rate [ Radial] Respiratory 22 Rate Blood Pressure 152/101 O2 Sat by Pulse Oximetry 03/24/19 03/24/19 03/24/19 00:00 04:00 04:36 Temperature 98.5 F 98.7 F Pulse Rate Pulse Rate [ 109 H 107 H Radial] Respiratory 19 20 22 Rate Blood Pressure O2 Sat by Pulse 100 100 Oximetry - General physical appearance no distress, no pain - Respiratory normal expansion, normal respiratory effort - Abdomen soft - Labs 03/24/19 06:04 03/24/19 06:04 Diabetes panel 03/24/19 Range/Units 06:04 Sodium 142 (137-145) mmol/L Potassium 4.3 (3.6-5.0) mmol/L Chloride 103.2 (98-107) mmol/L Carbon Dioxide 25 (22-30) mmol/L BUN 29 H (7-17) mg/dL Creatinine 2.7 H (0.7-1.2) mg/dL Glucose 131 H (65-100) mg/dL Calcium 8.6 (8.4-10.2) mg/dL AST 12 (5-40) units/L ALT 9 (7-56) units/L Alkaline Phosphatase 46 (35-129) units/L Total Protein 6.6 (6.3-8.2) g/dL Albumin 3.7 L (3.9-5) g/dL Calcium panel 03/24/19 Range/Units 06:04 Calcium 8.6 (8.4-10.2) mg/dL Albumin 3.7 L (3.9-5) g/dL Pituitary panel 03/24/19 Range/Units 06:04 Sodium 142 (137-145) mmol/L Potassium 4.3 (3.6-5.0) mmol/L Chloride 103.2 (98-107) mmol/L Carbon Dioxide 25 (22-30) mmol/L BUN 29 H (7-17) mg/dL Creatinine 2.7 H (0.7-1.2) mg/dL Glucose 131 H (65-100) mg/dL Calcium 8.6 (8.4-10.2) mg/dL Adrenal panel 03/24/19 Range/Units 06:04 Sodium 142 (137-145) mmol/L Potassium 4.3 (3.6-5.0) mmol/L Chloride 103.2 (98-107) mmol/L Carbon Dioxide 25 (22-30) mmol/L BUN 29 H (7-17) mg/dL Creatinine 2.7 H (0.7-1.2) mg/dL Glucose 131 H (65-100) mg/dL Calcium 8.6 (8.4-10.2) mg/dL Total Bilirubin 0.30 (0.1-1.2) mg/dL AST 12 (5-40) units/L ALT 9 (7-56) units/L Alkaline Phosphatase 46 (35-129) units/L Total Protein 6.6 (6.3-8.2) g/dL Albumin 3.7 L (3.9-5) g/dL
--- NOTE | 2019-03-24 10:15 | Ultrasound Report ---
Renal sonogram: History: Renal failure. Findings: Right kidney 10.8 x 5.7 x 5.9 cm. Dilatation of internal collecting system suggestive of hydronephrosis. No mass. Left kidney measures 10 x 5.6 x 6.1 cm. Cortical thickness 1.7 cm. Mild hydronephrosis. Impression: Moderate right hydronephrosis. Mild left hydronephrosis. Incidentally noted multiple gallstones in dilated gallbladder.
[2019-03-24] MEDS: SODIUM CHLORIDE FLUSH SYRINGE 10 ML IV SCH ×2 (11:07→22:08)
[2019-03-24] MEDS: PROTONIX IV SCH (11:07)
[2019-03-24] MEDS: MORPHINE IV PRN (12:00)
[2019-03-24 13:47] LABS: Hematocrit 23.5 % (30.3-42.9); Hemoglobin 7.9 gm/dl (10.1-14.3)
--- NOTE | 2019-03-24 13:50 | Progress Note ---
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 Absent: JVD/HJR, Masses Respiratory: Clear to Ascultation Heart: regular, S1S2 Gastrointestinal: Present: hypoactive bowel sounds Integumentary: no rash, warm and dry Neurologic: no focal deficit, alert and oriented x3, gait normal, strength 5/5 Musculoskeletal: Absent: deformities, joint swelling Psychiatric: mood/affect appropriate, cooperative - Vital Signs Vital signs: Vital Signs - 12hr 03/24/19 03/24/19 03/24/19 04:00 04:36 08:00 Temperature 98.7 F 98.2 F Pulse Rate [ 107 H Radial] Respiratory 20 22 Rate O2 Sat by Pulse 100 Oximetry - Lab 03/24/19 13:25 03/24/19 06:04 Most recent lab results Calcium 8.6 mg/dL (8.4-10.2) 03/24/19 06:04 54.1 mg/dL (0.1-20.0) H 03/23/19 13:40 74 mmol/L 03/23/19 13:40 Medications & Allergies - Medications Allergies/Adverse Reactions: Allergies No Known Allergies Allergy (Unverified 03/11/19 17:56) Home Medications: Home Medications Medication Instructions Recorded Confirmed Last Taken Type Gabapentin [Neurontin] 100 mg PO BID PRN 03/11/19 03/23/19 03/19/19 09:00 History Multivitamin [Multiple Vitamins] 1 each PO DAILY 03/11/19 03/23/19 03/22/19 07:00 History Naproxen [Naprosyn TAB] 500 mg PO BID PRN 03/11/19 03/23/19 03/22/19 07:00 History Telmisartan 40 mg PO DAILY 03/11/19 03/23/19 03/22/19 07:00 History amLODIPine [Norvasc] 5 mg PO DAILY 03/11/19 03/23/19 03/23/19 06:45 History Active Medications: Generic Name Dose Route Start Last Admin Trade Name Freq PRN Reason Stop Dose Admin Clonidine HCl 0.1 mg 03/23/19 12:33 Catapres PO Q6HR PRN Hypertension Clonidine HCl 0.1 mg 03/23/19 22:00 03/23/19 22:33 Catapres-Tts Patch TD 0.1 mg Tu STEFFI Administration Gabapentin 300 mg 03/24/19 09:30 Neurontin PO Q8HR PRN Pain, Moderate (4-6) Hydralazine HCl 10 mg 03/24/19 07:27 Apresoline IV Q4HR PRN Hypertension Dextrose/Sodium Chloride 1,000 mls @ 75 mls/hr 03/23/19 17:00 03/24/19 06:31 D5/0.45ns IV 75 mls/hr DIRECT STEFFI Administration Metoclopramide HCl 10 mg 03/23/19 12:11 Reglan IV Q6H PRN N/V if NPO. Morphine Sulfate 2 mg 03/24/19 07:00 Morphine IV Q4H PRN Pain, Moderate (4-6) Morphine Sulfate 4 mg 03/24/19 08:44 03/24/19 12:00 Morphine IV 4 mg Q4H PRN Administration Pain , Severe (7-10) Naloxone HCl 0.1 mg 03/23/19 12:11 Narcan 0.4 Mg/1 Ml IV Q2MIN PRN Res Rate </= 8 or 02 SAT < 92% Ondansetron HCl 4 mg 03/23/19 12:11 03/24/19 12:00 Zofran IV 4 mg Q8H PRN Administration N/V unrelieved by Reglan Pantoprazole Sodium 40 mg 03/24/19 10:00 03/24/19 11:07 Protonix IV 40 mg QDAY STEFFI Administration Sodium Chloride 10 ml 03/23/19 22:00 03/24/19 11:07 Sodium Chloride Flush Syringe 10 Ml IV 10 ml BID STEFFI Administration Sodium Chloride 10 ml 03/23/19 14:51 03/24/19 12:01 Sodium Chloride Flush Syringe 10 Ml IV 10 ml PRN PRN Administration LINE FLUSH
[2019-03-24] MEDS: ROCEPHIN/NS 1 GM/50 ML 1 GM/50 ML BAG IV SCH (15:41)
[2019-03-24] MEDS ORDERED: DIPRIVAN 10 MG/ML IV ONE (16:34)
[2019-03-24] MEDS ORDERED: SUBLIMAZE ONE (16:34)
[2019-03-24] MEDS ORDERED: VERSED ONE (16:40)
--- NOTE | 2019-03-24 16:44 | Anesthesia Day of Surgery ---
Anesthesia Day of Surgery - Day of Surgery Patient Examined: Yes Patient H&P Reviewed: Yes Patient is NPO: Yes
--- NOTE | 2019-03-24 16:44 | Anesthesia Consultation ---
Anesthesia Consult and Med Hx Date of service: 03/24/19 - Airway Anesthetic Teeth Evaluation: Good ROM Head & Neck: Adequate Mental/Hyoid Distance: Adequate Mallampati Class: Class II Intubation Access Assessment: Probably Good (previous easy intubation 03/23/19 w/ MAC 3) - Pulmonary Exam CTA: Yes - Cardiac Exam Cardiac Exam: RRR - Pre-Operative Health Status ASA Pre-Surgery Classification: ASA3 Proposed Anesthetic Plan: General - Pulmonary Hx Smoking: No Hx Respiratory Symptoms: No - Cardiovascular System Hx Hypertension: Yes Hx Heart Attack/AMI: No Hx Percutaneous Transluminal Coronary Angioplasty (PTCA): No Hx Cardia Arrhythmia: Yes (LBBB; chronic) Hx Pacemaker: No Hx Internal Defibrillator: No - Central Nervous System CVA: No Hx Psychiatric Problems: No - Gastrointestinal Hx Gastroesophageal Reflux Disease: No - Endocrine Hx Renal Disease: Yes (elevated creatitine without known hx CKD. Hydronephrosis on imaging.) Hx Liver Disease: No Hx Insulin Dependent Diabetes: No Hx Non-Insulin Dependent Diabetes: No Hx Thyroid Disease: No - Hematic Hx Anemia: Yes (acute on chronic 2/2 surgical blood loss) - Other Systems Hx Cancer: No Hx Obesity: No
[2019-03-24] MEDS ORDERED: DILAUDID IV PRN ×2 (16:45→18:07)
--- NOTE | 2019-03-24 17:34 | Cat Scan Report ---
PROCEDURE: CT ABDOMEN PELVIS WO CON TECHNIQUE: Computerized axial tomography of the abdomen and pelvis was performed without intravenous contrast. This study is performed without intravascular contrast material and its sensitivity for ab dominal and pelvic pathology, including neoplasms, inflammation, abscess, free fluid, thrombosis, art erial dissection and infarction, is reduced compared with a contrast enhanced study. CT DOSE LENGTH PRODUCT: 1176 mGycm HISTORY: hydronephrosis COMPARISONS: None . FINDINGS: Visualized lower thorax: Bibasilar compressive atelectasis is noted posteriorly. Liver: Normal size and attenuation. Spleen: Normal size and attenuation. Gallbladder and biliary system: Gallbladder is distended measuring 5.4 cm in diameter without evidenc e for wall thickening. Layering gallstones in the gallbladder are seen. Pancreas: Normal. Adrenals: Normal. Kidneys: Moderate bilateral hydronephrosis is noted down to the level of the ureterovesical junctions . GI tract: Normal . Lymph nodes and mesentery: There is an enlarged left periaortic lymph node measuring 2.2 x 2.8 x 2.4 cm in the left renal artery origin. Vasculature: Normal.. Bladder: Vela catheter balloon is present in the collapsed bladder. Reproductive organs: Normal. Peritoneum: There is a small fluid collection with an air-fluid level located superior and anterior t o the urinary bladder in the anterior abdominal wall. This measures 7.7 x 4.1 x 4.9 cm (axial image 1 56/21, sagittal image 102/197). There is a small amount of free fluid in the dependent pelvis. Musculoskeletal structures: Extensive subcutaneous emphysema is noted over the anterior lateral right abdominal wall. Small amount is also seen in the left mid abdominal wall. Stranding in the subcutane ous fat in these areas is also noted. Other: There is a small amount of free intraperitoneal air identified.. IMPRESSION: 1. Evidence for free intraperitoneal air and fluid in the pelvis. There is also significant amount of extensive subcutaneous emphysema overlying the anterior lateral right abdominal wall extending sligh tly across the midline 2. Small fluid collection located superior and anterior to the urinary bladder or pelvis 3. Bilateral hydronephrosis of uncertain etiology 4. Enlarged lymph node along the left periaortic region at the level of the left renal artery origin 5. Distended gallbladder which may be due to fasting. Cholelithiasis. This document is electronically signed by Susan Ritter MD., March 24 2019 05:32:37 PM ET
[2019-03-24] MEDS ORDERED: OMNIPAQUE 300 MG/50 ML (CATH LAB) IV ONE (17:38)
--- NOTE | 2019-03-24 17:43 | Post Operative Note ---
Date of procedure: 03/24/19 Pre-op diagnosis: adenocarcinoma hydro Post-op diagnosis: same Findings: bilat hydro Procedure: cysto stents Anesthesia: ADY Surgeon: ARMAAN FARMER Estimated blood loss: none Pathology: none Condition: stable Disposition: ICU
[2019-03-24] MEDS ORDERED: ZOFRAN IV PRN (18:07)
--- NOTE | 2019-03-24 18:46 | Post Anesthesia Evaluation ---
- Post Anesthesia Evaluation Patient Participated: Yes Airway Patent: Yes Stable Respiratory Function: Yes Nausea/Vomiting: No Temp > 96.8F: Yes Pain Manageable: Yes Adequeate Hydration: Yes Anesthesia Complications: No
[2019-03-24 19:17] LABS: Hematocrit 22.8 % (30.3-42.9); Hemoglobin 7.8 gm/dl (10.1-14.3)
--- NOTE | 2019-03-24 19:25 | History and Physical Report ---
History of Present Illness Date of examination: 03/24/19 Date of admission: 03/23/19 12:26 Chief complaint: Resting in bed, no flatus, s/p (B) ureteral stents for (B) hydronephrosis.. Diagnosis from Pathology endocervical adenocarcinoma Past History Past Medical History: hypertension Past Surgical History: Social history: denies: prescription drug abuse, IV drug use Family history: hypertension Medications and Allergies Allergies Allergy/AdvReac Type Severity Reaction Status Date / Time No Known Allergies Allergy Unverified 03/11/19 17:56 Home Medications Medication Instructions Recorded Confirmed Last Taken Type Gabapentin [Neurontin] 100 mg PO BID PRN 03/11/19 03/23/19 03/19/19 09:00 History Multivitamin [Multiple Vitamins] 1 each PO DAILY 03/11/19 03/23/19 03/22/19 07:00 History Naproxen [Naprosyn TAB] 500 mg PO BID PRN 03/11/19 03/23/19 03/22/19 07:00 History Telmisartan 40 mg PO DAILY 03/11/19 03/23/19 03/22/19 07:00 History amLODIPine [Norvasc] 5 mg PO DAILY 03/11/19 03/23/19 03/23/19 06:45 History Active Meds: Active Medications Clonidine HCl (Catapres) 0.1 mg PO Q6HR PRN PRN Reason: Hypertension Clonidine HCl (Catapres-Tts Patch) 0.1 mg TD Tu [facility] Last Admin: 03/23/19 22:33 Dose: 0.1 mg Documented by: Gabapentin (Neurontin) 300 mg PO Q8HR PRN PRN Reason: Pain, Moderate (4-6) Hydralazine HCl (Apresoline) 10 mg IV Q4HR PRN PRN Reason: Hypertension Hydromorphone HCl (Dilaudid) 0.5 mg IV Q10MIN PRN PRN Reason: Pain , Severe (7-10) Stop: 03/24/19 23:59 Last Admin: 03/24/19 18:10 Dose: 0.5 mg Documented by: Dextrose/Sodium Chloride (D5/0.45ns) 1,000 mls @ 75 mls/hr IV DIRECT STEFFI Last Admin: 03/24/19 06:31 Dose: 75 mls/hr Documented by: Ceftriaxone Sodium (Rocephin/Ns 1 Gm/50 Ml) 1 gm in 50 mls @ 100 mls/hr IV Q24HR [facility]; Protocol Last Admin: 03/24/19 15:41 Dose: 100 mls/hr Documented by: Metoclopramide HCl (Reglan) 10 mg IV Q6H PRN PRN Reason: N/V if NPO. Morphine Sulfate (Morphine) 2 mg IV Q4H PRN PRN Reason: Pain, Moderate (4-6) Morphine Sulfate (Morphine) 4 mg IV Q4H PRN PRN Reason: Pain , Severe (7-10) Last Admin: 03/24/19 12:00 Dose: 4 mg Documented by: Naloxone HCl (Narcan 0.4 Mg/1 Ml) 0.1 mg IV Q2MIN PRN PRN Reason: Res Rate </= 8 or 02 SAT < 92% Ondansetron HCl (Zofran) 4 mg IV Q8H PRN PRN Reason: N/V unrelieved by Reglan Last Admin: 03/24/19 12:00 Dose: 4 mg Documented by: Ondansetron HCl (Zofran) 4 mg IV ONCE PRN PRN Reason: Nausea And Vomiting Pantoprazole Sodium (Protonix) 40 mg IV QDAY [facility] Last Admin: 03/24/19 11:07 Dose: 40 mg Documented by: Sodium Chloride (Sodium Chloride Flush Syringe 10 Ml) 10 ml IV BID [facility] Last Admin: 03/24/19 11:07 Dose: 10 ml Documented by: Sodium Chloride (Sodium Chloride Flush Syringe 10 Ml) 10 ml IV PRN PRN PRN Reason: LINE FLUSH Last Admin: 03/24/19 12:01 Dose: 10 ml Documented by: Exam Vital Signs Temp Pulse Resp BP Pulse Ox 99.1 F 79 20 182/105 99 03/17/19 11:48 03/17/19 11:48 03/17/19 11:48 03/17/19 11:48 03/17/19 11:48 Results - Labs 03/24/19 19:07 03/24/19 06:04 Abnormal lab results 03/24/19 03/24/19 03/24/19 Range/Units 06:04 06:04 13:25 RBC 2.67 L (3.65-5.03) M/mm3 Hgb 8.5 L 7.9 L (10.1-14.3) gm/dl Hct 25.1 L 23.5 L (30.3-42.9) % Lymph % (Auto) 7.1 L (13.4-35.0) % [place] % (Auto) 11.1 H (0.0-7.3) % Lymph # 0.7 L (1.2-5.4) K/mm3 [place] # 1.0 H (0.0-0.8) K/mm3 Seg Neutrophils % 81.7 H (40.0-70.0) % BUN 29 H (7-17) mg/dL Creatinine 2.7 H (0.7-1.2) mg/dL Glucose 131 H (65-100) mg/dL Albumin 3.7 L (3.9-5) g/dL 03/24/19 Range/Units 19:07 RBC (3.65-5.03) M/mm3 Hgb 7.8 L (10.1-14.3) gm/dl Hct 22.8 L (30.3-42.9) % Lymph % (Auto) (13.4-35.0) % [place] % (Auto) (0.0-7.3) % Lymph # (1.2-5.4) K/mm3 [place] # (0.0-0.8) K/mm3 Seg Neutrophils % (40.0-70.0) % BUN (7-17) mg/dL Creatinine (0.7-1.2) mg/dL Glucose (65-100) mg/dL Albumin (3.9-5) g/dL Diabetes panel 03/24/19 Range/Units 06:04 Sodium 142 (137-145) mmol/L Potassium 4.3 (3.6-5.0) mmol/L Chloride 103.2 (98-107) mmol/L Carbon Dioxide 25 (22-30) mmol/L BUN 29 H (7-17) mg/dL Creatinine 2.7 H (0.7-1.2) mg/dL Glucose 131 H (65-100) mg/dL Calcium 8.6 (8.4-10.2) mg/dL AST 12 (5-40) units/L ALT 9 (7-56) units/L Alkaline Phosphatase 46 (35-129) units/L Total Protein 6.6 (6.3-8.2) g/dL Albumin 3.7 L (3.9-5) g/dL Calcium panel 03/24/19 Range/Units 06:04 Calcium 8.6 (8.4-10.2) mg/dL Albumin 3.7 L (3.9-5) g/dL Pituitary panel 03/24/19 Range/Units 06:04 Sodium 142 (137-145) mmol/L Potassium 4.3 (3.6-5.0) mmol/L Chloride 103.2 (98-107) mmol/L Carbon Dioxide 25 (22-30) mmol/L BUN 29 H (7-17) mg/dL Creatinine 2.7 H (0.7-1.2) mg/dL Glucose 131 H (65-100) mg/dL Calcium 8.6 (8.4-10.2) mg/dL Adrenal panel 03/24/19 Range/Units 06:04 Sodium 142 (137-145) mmol/L Potassium 4.3 (3.6-5.0) mmol/L Chloride 103.2 (98-107) mmol/L Carbon Dioxide 25 (22-30) mmol/L BUN 29 H (7-17) mg/dL Creatinine 2.7 H (0.7-1.2) mg/dL Glucose 131 H (65-100) mg/dL Calcium 8.6 (8.4-10.2) mg/dL Total Bilirubin 0.30 (0.1-1.2) mg/dL AST 12 (5-40) units/L ALT 9 (7-56) units/L Alkaline Phosphatase 46 (35-129) units/L Total Protein 6.6 (6.3-8.2) g/dL Albumin 3.7 L (3.9-5) g/dL Assessment and Plan - Patient Problems (1) S/P abdominal supracervical subtotal hysterectomy Current Visit: Yes Status: Acute (2) HTN (hypertension) Current Visit: Yes Status: Chronic Qualifiers: Hypertension type: essential hypertension Qualified Code(s): I10 - Essential (primary) hypertension (3) SULTANA (acute kidney injury) Current Visit: Yes Status: Acute (4) Serosal tear of colon Current Visit: Yes Status: Acute (5) Status post ovarian cystectomy Current Visit: Yes Status: Acute (6) S/P appendectomy Current Visit: Yes Status: Acute (7) Anemia Current Visit: Yes Status: Acute Qualifiers: Other causes of anemia: acute posthemorrhagic (8) Endometriosis Current Visit: Yes Status: Chronic (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
--- NOTE | 2019-03-24 19:38 | Progress Note ---
Assessment and Plan - Patient Problems (1) Adenocarcinoma Current Visit: Yes Status: Acute Plan to address problem: Cancer diagnosis by preliminary pathology report discussed with patient. Also discussed cancer diagnosis with her by phone. Explained oncology consultattion ordered. She will require Gynecologic oncology evaluation, however that will need to be performed on an outpatient basis because there is not one on staff here. Spoke with Dr. Stewart at 1940, he's aware of the consultation and will see her tomorrow (2) Hydronephrosis Current Visit: Yes Status: Acute Qualifiers: Hydronephrosis type: other Qualified Code(s): N13.39 - Other hydronephrosis Plan to address problem: DOS (B) ureteal stents placed (3) S/P abdominal supracervical subtotal hysterectomy Current Visit: Yes Status: Acute (4) SULTANA (acute kidney injury) Current Visit: Yes Status: Acute Plan to address problem: Will remove sprague when ok with Dr. Del Cid (5) HTN (hypertension) Current Visit: Yes Status: Chronic Qualifiers: Hypertension type: essential hypertension Qualified Code(s): I10 - Essential (primary) hypertension Plan to address problem: Currently controlled on Catapres (6) Serosal tear of colon Current Visit: Yes Status: Acute Plan to address problem: +BS, will advance to clears with flatus (7) Status post ovarian cystectomy Current Visit: Yes Status: Acute (8) S/P appendectomy Current Visit: Yes Status: Acute (9) Anemia Current Visit: Yes Status: Acute Qualifiers: Other causes of anemia: acute posthemorrhagic Plan to address problem: H/H stable (10) Endometriosis Current Visit: Yes Status: Chronic (11) 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 High grade adenocarcinoma possible endocervical. Objective Vital Signs - 12hr 03/24/19 03/24/19 03/24/19 07:30 08:00 08:30 Temperature 98.2 F Pulse Rate 105 H 102 H 109 H Pulse Rate [ 108 H Radial] Respiratory 20 19 15 Rate Blood Pressure 134/83 135/80 135/80 O2 Sat by Pulse 100 100 100 Oximetry 03/24/19 03/24/19 03/24/19 09:00 09:30 10:00 Temperature Pulse Rate 120 H 117 H 104 H Pulse Rate [ Radial] Respiratory 19 21 20 Rate Blood Pressure 117/89 117/89 139/80 O2 Sat by Pulse 100 100 100 Oximetry 03/24/19 03/24/19 03/24/19 10:30 11:00 11:30 Temperature Pulse Rate 104 H 106 H 109 H Pulse Rate [ Radial] Respiratory 18 21 24 Rate Blood Pressure 139/80 148/87 148/87 O2 Sat by Pulse 100 100 99 Oximetry 03/24/19 03/24/19 03/24/19 12:00 12:30 13:00 Temperature 99.2 F Pulse Rate 108 H 111 H 109 H Pulse Rate [ 104 H Radial] Respiratory 21 18 18 Rate Blood Pressure 134/82 118/70 124/72 O2 Sat by Pulse 98 97 97 Oximetry 03/24/19 03/24/19 03/24/19 13:30 14:00 14:30 Temperature Pulse Rate 114 H 108 H 105 H Pulse Rate [ Radial] Respiratory 21 18 19 Rate Blood Pressure 124/72 124/72 124/72 O2 Sat by Pulse 98 97 98 Oximetry 03/24/19 03/24/19 03/24/19 17:40 17:45 17:50 Temperature 99.3 F Pulse Rate 112 H 105 H 100 H Pulse Rate [ Radial] Respiratory 14 16 20 Rate Blood Pressure 145/81 152/86 154/92 O2 Sat by Pulse 100 100 100 Oximetry 03/24/19 03/24/19 03/24/19 17:55 18:10 18:25 Temperature Pulse Rate 102 H 102 H 98 H Pulse Rate [ Radial] Respiratory 18 20 16 Rate Blood Pressure 155/88 134/99 136/86 O2 Sat by Pulse 100 100 100 Oximetry 03/24/19 03/24/19 18:40 18:50 Temperature 98.9 F 98.9 F Pulse Rate 98 H 100 H Pulse Rate [ Radial] Respiratory 15 20 Rate Blood Pressure 139/89 150/89 O2 Sat by Pulse 100 100 Oximetry - Abdomen soft, bowel sounds normal, surgical scars (pfannstiel: c/d/i, no s/s infection) - Psychiatric oriented to person, oriented to place, speech is normal - Labs 03/24/19 19:07 03/24/19 06:04 Diabetes panel 03/24/19 Range/Units 06:04 Sodium 142 (137-145) mmol/L Potassium 4.3 (3.6-5.0) mmol/L Chloride 103.2 (98-107) mmol/L Carbon Dioxide 25 (22-30) mmol/L BUN 29 H (7-17) mg/dL Creatinine 2.7 H (0.7-1.2) mg/dL Glucose 131 H (65-100) mg/dL Calcium 8.6 (8.4-10.2) mg/dL AST 12 (5-40) units/L ALT 9 (7-56) units/L Alkaline Phosphatase 46 (35-129) units/L Total Protein 6.6 (6.3-8.2) g/dL Albumin 3.7 L (3.9-5) g/dL Calcium panel 03/24/19 Range/Units 06:04 Calcium 8.6 (8.4-10.2) mg/dL Albumin 3.7 L (3.9-5) g/dL Pituitary panel 03/24/19 Range/Units 06:04 Sodium 142 (137-145) mmol/L Potassium 4.3 (3.6-5.0) mmol/L Chloride 103.2 (98-107) mmol/L Carbon Dioxide 25 (22-30) mmol/L BUN 29 H (7-17) mg/dL Creatinine 2.7 H (0.7-1.2) mg/dL Glucose 131 H (65-100) mg/dL Calcium 8.6 (8.4-10.2) mg/dL Adrenal panel 03/24/19 Range/Units 06:04 Sodium 142 (137-145) mmol/L Potassium 4.3 (3.6-5.0) mmol/L Chloride 103.2 (98-107) mmol/L Carbon Dioxide 25 (22-30) mmol/L BUN 29 H (7-17) mg/dL Creatinine 2.7 H (0.7-1.2) mg/dL Glucose 131 H (65-100) mg/dL Calcium 8.6 (8.4-10.2) mg/dL Total Bilirubin 0.30 (0.1-1.2) mg/dL AST 12 (5-40) units/L ALT 9 (7-56) units/L Alkaline Phosphatase 46 (35-129) units/L Total Protein 6.6 (6.3-8.2) g/dL Albumin 3.7 L (3.9-5) g/dL
--- NOTE | 2019-03-24 20:04 | Operative Report ---
PREOPERATIVE DIAGNOSES: 1. Bilateral hydronephrosis. 2. Pelvic cancer. 3. Renal failure. POSTOPERATIVE DIAGNOSES: 1. Bilateral obstructive uropathy. 2. Pelvic mass in lower ureter. PROCEDURE: Cystoscopy, retrogrades, bilateral J stent. SURGEON: Gavino Aquino MD ANESTHESIA: General. FINDINGS: This is a woman who had a hysterectomy yesterday, found to have adenocarcinoma, have increase in creatinine from 0.9-2.8. She now presents for treatment. DESCRIPTION OF PROCEDURE: The patient was brought to the operating room and placed on the operating table. Following induction of anesthesia, placed in lithotomy position, prepped and draped in usual sterile fashion. Cystourethroscopy showed an extrinsic compression posterior wall of the bladder. The orifices were deviated slightly laterally. Retrograde showed bilateral hydronephrosis, more prominent on the left down to the pelvic brim. The wires were placed on both sides, we were able to coil in the kidneys and 6-Faroese double J's were placed bilaterally. The patient tolerated the procedure well. We notified Dr. Fuentes and the patient's boyfriend that she did well through the cystoscopy. Vela catheter was left. There was no bleeding, brought to recovery in stable condition. JOB# [id number] MANUEL/NÉSTOR
[2019-03-25] MEDS: MORPHINE IV PRN ×6 (01:11→22:16)
--- NOTE | 2019-03-25 02:11 | Consultation ---
HISTORY OF PRESENT ILLNESS: The patient this 48-year-old woman with extensive endometriosis who presented for hysterectomy. She was found to have a creatinine of 2.8. I spoke to Dr. Fuentes. Apparently, her creatinine was 0.9, a few months ago. A urological consultation was obtained after ultrasound showed bilateral hydronephrosis. PAST MEDICAL HISTORY: Hypertension, endometriosis, and diverticulosis. PAST SURGICAL HISTORY: Endometrial ablation. SOCIAL HISTORY: Noncontributory. FAMILY HISTORY: Noncontributory. REVIEW OF SYSTEMS: No flank pain, no history of manipulation. PHYSICAL EXAMINATION: GENERAL: She is awake. She is in no distress, but she appears somewhat quite fatigued and a little bit lethargic, probably from her pain medication. She is here with her . ABDOMEN: Soft, nondistended with mild tenderness from postop tenderness. IMPRESSION: Bilateral hydronephrosis, increased creatinine 2.8. Moderate right hydronephrosis with mild left hydronephrosis and multiple gallstones. She will go for a CT scan, which she just had, which showed significant hydronephrosis bilaterally with ureteral dilatation all the way down to the pelvis. Vela catheter in the bladder and postop inflammatory changes. PLAN: The plan will be cystoscopy stenting. She may require percutaneous drainage. She has a distended gallbladder as well. I will talk to Dr. Fuentes after cystoscopy. JOB# [id number] MANUEL/NÉSTOR
[2019-03-25 05:27] LABS: Basophils % (Auto) 0.2 % (0.0-1.8); Eosinophils % (Auto) 0.4 % (0.0-4.3); Hematocrit 21.8 % (30.3-42.9); Hemoglobin 7.5 gm/dl (10.1-14.3); Lymphocytes # (Auto) 1.1 K/mm3 (1.2-5.4); Mean Corpuscular HGB Conc 34 % (30-34); Mean Corpuscular Volume 95 fl (79-97); Platelet Count 290 K/mm3 (140-440); Red Blood Count 2.31 M/mm3 (3.65-5.03); Red Cell Distribution Width 13.3 % (13.2-15.2)
[2019-03-25 05:45] LABS: Albumin 3.6 g/dL (3.9-5); Calcium 9.2 mg/dL (8.4-10.2)
[2019-03-25] MEDS: D5/0.45NS 1,000 ML IV SCH ×4 (06:45→22:25)
--- NOTE | 2019-03-25 07:41 | Fluoroscopy Report ---
FLUOROSCOPY RETROGRADE UROGRAPHY: HISTORY: Hydronephrosis. FINDINGS: Fluoroscopy was provided by radiology during retrograde urography by the urologist. 6 fluoroscopic images were captured. Correlation is made with the CT abdomen pelvis without contrast dated 03/24/19. The images demonstrate moderate smooth narrowing of both distal ureters with mild bilateral hydronephrosis. Subsequent images demonstrate placement of bilateral ureteral stents with good drainage of the collecting systems on the final image. Please correlate with the procedural report as needed. IMPRESSION: Bilateral hydronephrosis. Bilateral ureteral stent placement.
--- NOTE | 2019-03-25 08:18 | Progress Note ---
Assessment and Plan Assessment and plan: --Hypertension; moderate control Continue clonidine, IV hydralazine PRN for BP more than 155/90 Closely monitor --Acute renal failure; vasomotor nephropathy Mild improvement, gentle hydration, avoid nephrotoxins Follow up nephrology evaluation and recommendations Renal ultrasound if no improvement --Bilateral hydronephrosis; status post bilateral J stent placement Urology following --Adenocarcinoma; COUNTRY MANAGER oncology following --Hemoglobin continue to drop dropped from 11.8-8.5-7.5 Closely monitor H&H and transfuse as needed, COUNTRY MANAGER recommended 1 unit of PRBC transfusion, Patient refused --Deficiency anemia; iron supplements once patient is able to take oral --Pelvic pain and abnormal uterine bleeding ; s/p robotic assisted hysterectomy converted to abdominal supracervical hysterectomy (B) salpingectomy (R) ovarian cystectomy appendectomy Friable posterior vaginal cul-de-sac tissue Repair rectal colon serosal denuded tissue Management per COUNTRY MANAGER. --s/p appendectomy: Continue postop care per surgery --DVT prophylaxis; SCD --Obesity; BMI 30.5, advised weight reduction when medically stable Plan of care is reviewed with patient and her nurse Discussed with [facility] is stable to be transferred out of IMCU to telemetry History Interval history: Patient seen and examined. Medical records reviewed Patient feels slightly better, did not have flatulence Complaints of mild abdominal pain Vital signs reviewed Hospitalist Physical - Constitutional Vitals: Temp Pulse Resp BP Pulse Ox 98.9 F 98 H 18 118/76 100 03/25/19 04:00 03/25/19 03:00 03/25/19 03:00 03/25/19 03:00 03/25/19 03:00 General appearance: Present: mild distress, well-nourished - EENT Eyes: Present: PERRL, EOM intact - Neck Neck: Present: supple, normal ROM - Respiratory Respiratory effort: normal Respiratory: bilateral: diminished, negative: rales, rhonchi, wheezing - Cardiovascular Rhythm: regular Heart Sounds: Present: S1 & S2 - Extremities Extremities: no ischemia, No edema - Abdominal General gastrointestinal: soft, tender ( no guarding no rigidity), absent bowel sounds - Integumentary Integumentary: Present: clear, warm - Psychiatric Psychiatric: appropriate mood/affect, cooperative - Neurologic Neurologic: moves all extremities Results - Labs CBC & Chem 7: 03/25/19 04:59 03/25/19 04:59 Labs: Laboratory Last Values WBC 9.6 K/mm3 (4.5-11.0) 03/25/19 04:59 RBC 2.31 M/mm3 (3.65-5.03) L 03/25/19 04:59 Hgb 7.5 gm/dl (10.1-14.3) L 03/25/19 04:59 Hct 21.8 % (30.3-42.9) L 03/25/19 04:59 MCV 95 fl (79-97) 03/25/19 04:59 MCH 32 pg (28-32) 03/25/19 04:59 MCHC 34 % (30-34) 03/25/19 04:59 RDW 13.3 % (13.2-15.2) 03/25/19 04:59 Plt Count 290 K/mm3 (140-440) 03/25/19 04:59 Lymph % (Auto) 11.0 % (13.4-35.0) L 03/25/19 04:59 [place] % (Auto) 10.0 % (0.0-7.3) H 03/25/19 04:59 Eos % (Auto) 0.4 % (0.0-4.3) 03/25/19 04:59 Baso % (Auto) 0.2 % (0.0-1.8) 03/25/19 04:59 Lymph # 1.1 K/mm3 (1.2-5.4) L 03/25/19 04:59 [place] # 1.0 K/mm3 (0.0-0.8) H 03/25/19 04:59 Eos # 0.0 K/mm3 (0.0-0.4) 03/25/19 04:59 Baso # 0.0 K/mm3 (0.0-0.1) 03/25/19 04:59 Seg Neutrophils % 78.4 % (40.0-70.0) H 03/25/19 04:59 Seg Neutrophils # 7.5 K/mm3 (1.8-7.7) 03/25/19 04:59 Sodium 148 mmol/L (137-145) H 03/25/19 04:59 Potassium 4.1 mmol/L (3.6-5.0) 03/25/19 04:59 Chloride 107.6 mmol/L (98-107) H 03/25/19 04:59 Carbon Dioxide 25 mmol/L (22-30) 03/25/19 04:59 20 mmol/L 03/25/19 04:59 BUN 23 mg/dL (7-17) H 03/25/19 04:59 2.2 mg/dL (0.7-1.2) H 03/25/19 04:59 Estimated GFR 29 ml/min 03/25/19 04:59 10 % 03/25/19 04:59 Glucose 112 mg/dL (65-100) H 03/25/19 04:59 Calcium 9.2 mg/dL (8.4-10.2) 03/25/19 04:59 0.20 mg/dL (0.1-1.2) 03/25/19 04:59 AST 11 units/L (5-40) 03/25/19 04:59 ALT 6 units/L (7-56) L 03/25/19 04:59 48 units/L (35-129) 03/25/19 04:59 6.6 g/dL (6.3-8.2) 03/25/19 04:59 3.6 g/dL (3.9-5) L 03/25/19 04:59 1.2 % 03/25/19 04:59 Straw (Yellow) 03/23/19 13:40 Clear (Clear) 03/23/19 13:40 6.0 (5.0-7.0) 03/23/19 13:40 Ur Specific [place] 1.010 (1.003-1.030) 03/23/19 13:40 <15 mg/dl mg/dL (Negative) 03/23/19 13:40 Neg mg/dL (Negative) 03/23/19 13:40 Neg mg/dL (Negative) 03/23/19 13:40 Sm (Negative) 03/23/19 13:40 Neg (Negative) 03/23/19 13:40 Neg (Negative) 03/23/19 13:40 < 2.0 mg/dL (<2.0) 03/23/19 13:40 Ur Leukocyte Esterase Sm (Negative) 03/23/19 13:40 9.0 /HPF (0.0-6.0) H 03/23/19 13:40 9.0 /HPF (0.0-6.0) 03/23/19 13:40 1+ /HPF (Negative) 03/23/19 13:40 54.1 mg/dL (0.1-20.0) H 03/23/19 13:40 74 mmol/L 03/23/19 13:40 Hep Bs Antigen Non-reactive (Negative) 03/23/19 13:28 Non-reactive (NonReactive) 03/23/19 13:28 Blood Type O POSITIVE 03/23/19 06:45 Antibody Screen Negative 03/23/19 06:45 Active Medications - Current Medications Current Medications: Generic Name Dose Route Start Last Admin Trade Name Freq PRN Reason Stop Dose Admin Clonidine HCl 0.1 mg 03/23/19 12:33 Catapres PO Q6HR PRN Hypertension Clonidine HCl 0.1 mg 03/23/19 22:00 03/23/19 22:33 Catapres-Tts Patch TD 0.1 mg Tu STEFFI Administration Gabapentin 300 mg 03/24/19 09:30 Neurontin PO Q8HR PRN Pain, Moderate (4-6) Hydralazine HCl 10 mg 03/24/19 07:27 Apresoline IV Q4HR PRN Hypertension Dextrose/Sodium Chloride 1,000 mls @ 75 mls/hr 03/23/19 17:00 03/25/19 06:45 D5/0.45ns IV 75 mls/hr DIRECT STEFFI Administration Ceftriaxone Sodium 1 gm in 50 mls @ 100 mls/hr 03/24/19 14:00 03/24/19 15:41 Rocephin/Ns 1 Gm/50 Ml IV 100 mls/hr Q24HR STEFFI Administration Protocol Metoclopramide HCl 10 mg 03/23/19 12:11 Reglan IV Q6H PRN N/V if NPO. Morphine Sulfate 2 mg 03/24/19 07:00 03/25/19 06:12 Morphine IV 2 mg Q4H PRN Administration Pain, Moderate (4-6) Morphine Sulfate 4 mg 03/24/19 08:44 03/24/19 12:00 Morphine IV 4 mg Q4H PRN Administration Pain , Severe (7-10) Naloxone HCl 0.1 mg 03/23/19 12:11 Narcan 0.4 Mg/1 Ml IV Q2MIN PRN Res Rate </= 8 or 02 SAT < 92% Ondansetron HCl 4 mg 03/23/19 12:11 03/24/19 12:00 Zofran IV 4 mg Q8H PRN Administration N/V unrelieved by Zuleyma Pantoprazole Sodium 40 mg 03/24/19 10:00 03/24/19 11:07 Protonix IV 40 mg QDAY STEFFI Administration Sodium Chloride 10 ml 03/23/19 22:00 03/24/19 22:08 Sodium Chloride Flush Syringe 10 Ml IV 10 ml BID STEFFI Administration Sodium Chloride 10 ml 03/23/19 14:51 03/24/19 12:01 Sodium Chloride Flush Syringe 10 Ml IV 10 ml PRN PRN Administration LINE FLUSH Nutrition/Malnutrition Assess - Dietary Evaluation Nutrition/Malnutrition Findings: Nutrition Notes Start: 03/24/19 16:47 Freq: Status: Active Protocol: Document 03/24/19 16:47 RM (Rec: 03/24/19 16:49 RM [email or web address]) Nutrition Notes Need for Assessment generated from: MD Order Initial or Follow up Brief Note Subjective/Other Information Consulted for HTN diet education. Pt already famliar w/diet but took handout. Nutrition Intervention Revisit per MD consult or patient Sign Off request:
--- NOTE | 2019-03-25 08:25 | Progress Note ---
Assessment and Plan urine clear creat decreasing needs onc f/u sprague can be removed Subjective Date of service: 03/25/19 Principal diagnosis: abad on ckd Objective - Constitutional Vitals: Vital Signs - 12hr 03/24/19 03/24/19 03/24/19 20:31 20:46 21:00 Temperature Pulse Rate 108 H 102 H Pulse Rate [ Radial] Respiratory 13 21 Rate Blood Pressure 139/85 145/84 O2 Sat by Pulse 100 100 100 Oximetry 03/24/19 03/24/19 03/24/19 21:30 21:35 22:00 Temperature Pulse Rate 104 H 102 H 112 H Pulse Rate [ Radial] Respiratory 18 25 H 17 Rate Blood Pressure 132/86 132/86 123/76 O2 Sat by Pulse 100 100 100 Oximetry 03/24/19 03/24/19 03/24/19 22:30 23:00 23:30 Temperature Pulse Rate 112 H 103 H 107 H Pulse Rate [ Radial] Respiratory 24 33 H 18 Rate Blood Pressure 114/86 122/75 126/77 O2 Sat by Pulse 100 100 100 Oximetry 03/25/19 03/25/19 03/25/19 00:00 00:30 01:00 Temperature 99.0 F Pulse Rate 112 H 108 H 106 H Pulse Rate [ 98 H Radial] Respiratory 21 24 14 Rate Blood Pressure 130/78 130/86 123/84 O2 Sat by Pulse 100 100 98 Oximetry 03/25/19 03/25/19 03/25/19 01:30 02:00 02:30 Temperature Pulse Rate 108 H 100 H 105 H Pulse Rate [ Radial] Respiratory 20 19 17 Rate Blood Pressure 114/87 131/75 115/81 O2 Sat by Pulse 100 100 100 Oximetry 03/25/19 03/25/19 03/25/19 03:00 03:30 04:00 Temperature 98.9 F Pulse Rate 98 H 98 H 97 H Pulse Rate [ 100 H Radial] Respiratory 18 18 20 Rate Blood Pressure 118/76 137/78 136/78 O2 Sat by Pulse 100 100 100 Oximetry 03/25/19 03/25/19 03/25/19 04:30 05:01 05:31 Temperature Pulse Rate 96 H 103 H 100 H Pulse Rate [ Radial] Respiratory 18 17 21 Rate Blood Pressure 131/77 131/77 152/91 O2 Sat by Pulse 100 100 97 Oximetry 03/25/19 03/25/19 03/25/19 06:00 06:30 07:00 Temperature Pulse Rate 95 H 98 H 98 H Pulse Rate [ Radial] Respiratory 18 19 19 Rate Blood Pressure 132/82 142/79 140/85 O2 Sat by Pulse 96 96 96 Oximetry 03/25/19 03/25/19 07:30 08:00 Temperature Pulse Rate 100 H 98 H Pulse Rate [ Radial] Respiratory 20 11 L Rate Blood Pressure 142/85 141/90 O2 Sat by Pulse 96 99 Oximetry General appearance: Present: no acute distress - Neck Neck: supple - Respiratory Respiratory effort: normal - Labs CBC & Chem 7: 03/25/19 04:59 03/25/19 04:59 Labs: Abnormal lab results 03/24/19 03/24/19 03/25/19 Range/Units 13:25 19:07 04:59 RBC 2.31 L (3.65-5.03) M/mm3 Hgb 7.9 L 7.8 L 7.5 L (10.1-14.3) gm/dl Hct 23.5 L 22.8 L 21.8 L (30.3-42.9) % Lymph % (Auto) 11.0 L (13.4-35.0) % Izard % (Auto) 10.0 H (0.0-7.3) % Lymph # 1.1 L (1.2-5.4) K/mm3 Izard # 1.0 H (0.0-0.8) K/mm3 Seg Neutrophils % 78.4 H (40.0-70.0) % Sodium (137-145) mmol/L Chloride (98-107) mmol/L BUN (7-17) mg/dL Creatinine (0.7-1.2) mg/dL Glucose (65-100) mg/dL ALT (7-56) units/L Albumin (3.9-5) g/dL 03/25/19 Range/Units 04:59 RBC (3.65-5.03) M/mm3 Hgb (10.1-14.3) gm/dl Hct (30.3-42.9) % Lymph % (Auto) (13.4-35.0) % Izard % (Auto) (0.0-7.3) % Lymph # (1.2-5.4) K/mm3 Izard # (0.0-0.8) K/mm3 Seg Neutrophils % (40.0-70.0) % Sodium 148 H (137-145) mmol/L Chloride 107.6 H (98-107) mmol/L BUN 23 H (7-17) mg/dL Creatinine 2.2 H (0.7-1.2) mg/dL Glucose 112 H (65-100) mg/dL ALT 6 L (7-56) units/L Albumin 3.6 L (3.9-5) g/dL Medications & Allergies - Medications Allergies/Adverse Reactions: Allergies No Known Allergies Allergy (Unverified 03/11/19 17:56) Home Medications: Home Medications Medication Instructions Recorded Confirmed Last Taken Type Gabapentin [Neurontin] 100 mg PO BID PRN 03/11/19 03/23/19 03/19/19 09:00 History Multivitamin [Multiple Vitamins] 1 each PO DAILY 03/11/19 03/23/19 03/22/19 07:00 History Naproxen [Naprosyn TAB] 500 mg PO BID PRN 03/11/19 03/23/19 03/22/19 07:00 History Telmisartan 40 mg PO DAILY 03/11/19 03/23/19 03/22/19 07:00 History amLODIPine [Norvasc] 5 mg PO DAILY 03/11/19 03/23/19 03/23/19 06:45 History Active Medications: Generic Name Dose Route Start Last Admin Trade Name Freq PRN Reason Stop Dose Admin Clonidine HCl 0.1 mg 03/23/19 12:33 Catapres PO Q6HR PRN Hypertension Clonidine HCl 0.1 mg 03/23/19 22:00 03/23/19 22:33 Catapres-Tts Patch TD 0.1 mg Tu STEFFI Administration Gabapentin 300 mg 03/24/19 09:30 Neurontin PO Q8HR PRN Pain, Moderate (4-6) Hydralazine HCl 10 mg 03/24/19 07:27 Apresoline IV Q4HR PRN Hypertension Dextrose/Sodium Chloride 1,000 mls @ 150 mls/hr 03/23/19 17:00 03/25/19 06:45 D5/0.45ns IV 75 mls/hr DIRECT STEFFI Administration Ceftriaxone Sodium 1 gm in 50 mls @ 100 mls/hr 03/24/19 14:00 03/24/19 15:41 Rocephin/Ns 1 Gm/50 Ml IV 100 mls/hr Q24HR STEFFI Administration Protocol Metoclopramide HCl 10 mg 03/23/19 12:11 Reglan IV Q6H PRN N/V if NPO. Morphine Sulfate 2 mg 03/24/19 07:00 03/25/19 06:12 Morphine IV 2 mg Q4H PRN Administration Pain, Moderate (4-6) Morphine Sulfate 4 mg 03/24/19 08:44 03/24/19 12:00 Morphine IV 4 mg Q4H PRN Administration Pain , Severe (7-10) Naloxone HCl 0.1 mg 03/23/19 12:11 Narcan 0.4 Mg/1 Ml IV Q2MIN PRN Res Rate </= 8 or 02 SAT < 92% Ondansetron HCl 4 mg 03/23/19 12:11 03/24/19 12:00 Zofran IV 4 mg Q8H PRN Administration N/V unrelieved by Zuleyma Pantoprazole Sodium 40 mg 03/24/19 10:00 03/24/19 11:07 Protonix IV 40 mg QDAY STEFFI Administration Sodium Chloride 10 ml 03/23/19 22:00 03/24/19 22:08 Sodium Chloride Flush Syringe 10 Ml IV 10 ml BID STEFFI Administration Sodium Chloride 10 ml 03/23/19 14:51 03/24/19 12:01 Sodium Chloride Flush Syringe 10 Ml IV 10 ml PRN PRN Administration LINE FLUSH
[2019-03-25 09:01] LABS: Iron 13 ug/dL (37-170); Total Iron Binding Capacity 137 mcg/dL (250-450)
--- NOTE | 2019-03-25 10:01 | Progress Note ---
Assessment and Plan - Patient Problems (1) Adenocarcinoma Current Visit: Yes Status: Acute Plan to address problem: Dr. Stewart to assess patient today (2) Hydronephrosis Current Visit: Yes Status: Acute Qualifiers: Hydronephrosis type: other Qualified Code(s): N13.39 - Other hydronephrosis Plan to address problem: POD#[address], to remain per Dr. Aquino (3) S/P abdominal supracervical subtotal hysterectomy Current Visit: Yes Status: Acute Plan to address problem: POD#1 Doing well POD#2 Will transfuse one unit PRBC, ok'd with Drs. Del Cid and Anival, also will transfer to telemetry. No evidence of active bleeding. UO good, clear yellow. Will advance diet with flatus or sooner if ok with Dr. Burr (4) SULTANA (acute kidney injury) Current Visit: Yes Status: Acute Plan to address problem: (5) HTN (hypertension) Current Visit: Yes Status: Chronic Qualifiers: Hypertension type: essential hypertension Qualified Code(s): I10 - Essential (primary) hypertension (6) Serosal tear of colon Current Visit: Yes Status: Acute Plan to address problem: Managed by Dr. 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 (12) Dysmenorrhea Current Visit: No Status: Chronic (13) Abnormal uterine bleeding (AUB) Current Visit: No Status: Resolved (14) DVT prophylaxis Current Visit: Yes Status: Acute Subjective Date of service: 03/25/19 Patient Reports: Positive: still having pain (tolerating ice chips), no flatus Objective Vital Signs - 12hr 03/24/19 03/24/19 03/24/19 22:00 22:30 23:00 Temperature Pulse Rate 112 H 112 H 103 H Pulse Rate [ Radial] Respiratory 17 24 33 H Rate Blood Pressure 123/76 114/86 122/75 O2 Sat by Pulse 100 100 100 Oximetry 03/24/19 03/25/19 03/25/19 23:30 00:00 00:30 Temperature 99.0 F Pulse Rate 107 H 112 H 108 H Pulse Rate [ 98 H Radial] Respiratory 18 21 24 Rate Blood Pressure 126/77 130/78 130/86 O2 Sat by Pulse 100 100 100 Oximetry 03/25/19 03/25/19 03/25/19 01:00 01:30 02:00 Temperature Pulse Rate 106 H 108 H 100 H Pulse Rate [ Radial] Respiratory 14 20 19 Rate Blood Pressure 123/84 114/87 131/75 O2 Sat by Pulse 98 100 100 Oximetry 03/25/19 03/25/19 03/25/19 02:30 03:00 03:30 Temperature Pulse Rate 105 H 98 H 98 H Pulse Rate [ Radial] Respiratory 17 18 18 Rate Blood Pressure 115/81 118/76 137/78 O2 Sat by Pulse 100 100 100 Oximetry 03/25/19 03/25/19 03/25/19 04:00 04:30 05:01 Temperature 98.9 F Pulse Rate 97 H 96 H 103 H Pulse Rate [ 100 H Radial] Respiratory 20 18 17 Rate Blood Pressure 136/78 131/77 131/77 O2 Sat by Pulse 100 100 100 Oximetry 03/25/19 03/25/19 03/25/19 05:31 06:00 06:30 Temperature Pulse Rate 100 H 95 H 98 H Pulse Rate [ Radial] Respiratory 21 18 19 Rate Blood Pressure 152/91 132/82 142/79 O2 Sat by Pulse 97 96 96 Oximetry 03/25/19 03/25/19 03/25/19 07:00 07:30 08:00 Temperature Pulse Rate 98 H 100 H 98 H Pulse Rate [ Radial] Respiratory 19 20 11 L Rate Blood Pressure 140/85 142/85 141/90 O2 Sat by Pulse 96 96 99 Oximetry - General physical appearance well nourished - Respiratory normal expansion, clear to percussion (poor effort) - Abdomen soft, bowel sounds normal, not distended, not rebound, not guarding, surgical scars (no s/s infection, c/d/i) - Genitourinary other (no bleeding, not wearing peripad) - Psychiatric oriented to time, oriented to person, oriented to place, speech is normal - Labs 03/25/19 04:59 03/25/19 04:59 Diabetes panel 03/25/19 Range/Units 04:59 Sodium 148 H (137-145) mmol/L Potassium 4.1 (3.6-5.0) mmol/L Chloride 107.6 H (98-107) mmol/L Carbon Dioxide 25 (22-30) mmol/L BUN 23 H (7-17) mg/dL Creatinine 2.2 H (0.7-1.2) mg/dL Glucose 112 H (65-100) mg/dL Calcium 9.2 (8.4-10.2) mg/dL AST 11 (5-40) units/L ALT 6 L (7-56) units/L Alkaline Phosphatase 48 (35-129) units/L Total Protein 6.6 (6.3-8.2) g/dL Albumin 3.6 L (3.9-5) g/dL Calcium panel 03/25/19 Range/Units 04:59 Calcium 9.2 (8.4-10.2) mg/dL Albumin 3.6 L (3.9-5) g/dL Pituitary panel 03/25/19 Range/Units 04:59 Sodium 148 H (137-145) mmol/L Potassium 4.1 (3.6-5.0) mmol/L Chloride 107.6 H (98-107) mmol/L Carbon Dioxide 25 (22-30) mmol/L BUN 23 H (7-17) mg/dL Creatinine 2.2 H (0.7-1.2) mg/dL Glucose 112 H (65-100) mg/dL Calcium 9.2 (8.4-10.2) mg/dL Adrenal panel 03/25/19 Range/Units 04:59 Sodium 148 H (137-145) mmol/L Potassium 4.1 (3.6-5.0) mmol/L Chloride 107.6 H (98-107) mmol/L Carbon Dioxide 25 (22-30) mmol/L BUN 23 H (7-17) mg/dL Creatinine 2.2 H (0.7-1.2) mg/dL Glucose 112 H (65-100) mg/dL Calcium 9.2 (8.4-10.2) mg/dL Total Bilirubin 0.20 (0.1-1.2) mg/dL AST 11 (5-40) units/L ALT 6 L (7-56) units/L Alkaline Phosphatase 48 (35-129) units/L Total Protein 6.6 (6.3-8.2) g/dL Albumin 3.6 L (3.9-5) g/dL
[2019-03-25] MEDS: PROTONIX IV SCH (10:05)
[2019-03-25] MEDS: SODIUM CHLORIDE FLUSH SYRINGE 10 ML IV SCH ×2 (10:06→22:17)
[2019-03-25] MEDS: ROCEPHIN/NS 1 GM/50 ML 1 GM/50 ML BAG IV SCH (10:06)
[2019-03-25] MEDS ORDERED: NACL 0.9% 500 ML 500 ML IV SCH (10:14)
--- NOTE | 2019-03-25 10:50 | Progress Note ---
Assessment and Plan - Patient Problems (1) SULTANA (acute kidney injury) Current Visit: Yes Status: Acute Plan to address problem: Acute kidney injury Secondary to obstructive uropathy CT scan with evidence of bilateral hydronephrosis Appreciate urology for placement of retrograde stents bilaterally Good urine output renal function is improving Increase half-normal saline to 150 mL an hour Recheck renal function (2) Anemia Current Visit: Yes Status: Acute Qualifiers: Other causes of anemia: acute posthemorrhagic Plan to address problem: Moderate anemia Hemoglobin is 7.5 g/dl etiology 2/2 ? blood loss Monitor CBC (3) Endometriosis Current Visit: Yes Status: Chronic Plan to address problem: Endometriosis service was hysterectomy being managed by gynecology History of dyspareunia Status post hysterectomy with concern for serosal colon tear (4) HTN (hypertension) Current Visit: Yes Status: Chronic Qualifiers: Hypertension type: essential hypertension Qualified Code(s): I10 - Essential (primary) hypertension Plan to address problem: Hypertension uncontrolled long-standing history of hypertension continue medications (5) Hypernatremia Current Visit: Yes Status: Acute Plan to address problem: Hypernatremia in the setting of post obstructive diuresis with obstruction Increase half-normal saline to 150 mL an hour to increase free water if hypernatremia worsens with change to D5 water Check renal function panel Subjective Principal diagnosis: sultana on ckd Interval history: 48-year-old lady with medical history significant for endometriosis presented for robotic hysterectomy, which was converted to open hysterectomy also in acute kidney injury with bilateral hydronephrosis Patient and has been at bedside concern about kidney disease and kidney injury and what the prognosis was I discussed with the patient renal function is improving status post stent placement due to obstruction expect renal functions continued to improve no clear baseline however not sure she has chronic kidney disease at baseline, obtain records if possible urine output is improving expect continued improvement Patient has abdominal pain no edema still drowsy Objective - Vital Signs Vital signs: Vital Signs - 12hr 03/24/19 03/24/19 03/25/19 23:00 23:30 00:00 Temperature 99.0 F Pulse Rate 103 H 107 H 112 H Pulse Rate [ 98 H Radial] Respiratory 33 H 18 21 Rate Blood Pressure 122/75 126/77 130/78 O2 Sat by Pulse 100 100 100 Oximetry 03/25/19 03/25/19 03/25/19 00:30 01:00 01:30 Temperature Pulse Rate 108 H 106 H 108 H Pulse Rate [ Radial] Respiratory 24 14 20 Rate Blood Pressure 130/86 123/84 114/87 O2 Sat by Pulse 100 98 100 Oximetry 03/25/19 03/25/19 03/25/19 02:00 02:30 03:00 Temperature Pulse Rate 100 H 105 H 98 H Pulse Rate [ Radial] Respiratory 19 17 18 Rate Blood Pressure 131/75 115/81 118/76 O2 Sat by Pulse 100 100 100 Oximetry 03/25/19 03/25/19 03/25/19 03:30 04:00 04:30 Temperature 98.9 F Pulse Rate 98 H 97 H 96 H Pulse Rate [ 100 H Radial] Respiratory 18 20 18 Rate Blood Pressure 137/78 136/78 131/77 O2 Sat by Pulse 100 100 100 Oximetry 03/25/19 03/25/19 03/25/19 05:01 05:31 06:00 Temperature Pulse Rate 103 H 100 H 95 H Pulse Rate [ Radial] Respiratory 17 21 18 Rate Blood Pressure 131/77 152/91 132/82 O2 Sat by Pulse 100 97 96 Oximetry 03/25/19 03/25/19 03/25/19 06:30 07:00 07:30 Temperature Pulse Rate 98 H 98 H 100 H Pulse Rate [ Radial] Respiratory 19 19 20 Rate Blood Pressure 142/79 140/85 142/85 O2 Sat by Pulse 96 96 96 Oximetry 03/25/19 08:00 Temperature Pulse Rate 98 H Pulse Rate [ Radial] Respiratory 11 L Rate Blood Pressure 141/90 O2 Sat by Pulse 99 Oximetry - General Appearance General appearance: well-developed, well-nourished EENT: ATNC, PERRL, mucous membranes moist Neck: no JVD Respiratory: Present: Clear to Ascultation Cardiology: regular, S1S2 Gastrointestinal: hypoactive bowel sounds, tenderness, other (transverse scar healing. ) Integumentary: no rash Neurologic: alert and oriented x3, CN 3-12 intact Psychiatric: mood/affect appropriate - Lab 03/25/19 04:59 03/25/19 04:59 Most recent lab results Calcium 9.2 mg/dL (8.4-10.2) 03/25/19 04:59 54.1 mg/dL (0.1-20.0) H 03/23/19 13:40 74 mmol/L 03/23/19 13:40 - Imaging CT scan - abdomen: image reviewed (I reviewed CT abdomen with concern for bilateral hydronephrosis) Medications & Allergies - Medications Allergies/Adverse Reactions: Allergies No Known Allergies Allergy (Unverified 03/11/19 17:56) Home Medications: Home Medications Medication Instructions Recorded Confirmed Last Taken Type Gabapentin [Neurontin] 100 mg PO BID PRN 03/11/19 03/23/19 03/19/19 09:00 History Multivitamin [Multiple Vitamins] 1 each PO DAILY 03/11/19 03/23/19 03/22/19 07:00 History Naproxen [Naprosyn TAB] 500 mg PO BID PRN 03/11/19 03/23/19 03/22/19 07:00 History Telmisartan 40 mg PO DAILY 03/11/19 03/23/19 03/22/19 07:00 History amLODIPine [Norvasc] 5 mg PO DAILY 03/11/19 03/23/19 03/23/19 06:45 History Active Medications: Generic Name Dose Route Start Last Admin Trade Name Freq PRN Reason Stop Dose Admin Clonidine HCl 0.1 mg 03/23/19 12:33 Catapres PO Q6HR PRN Hypertension Clonidine HCl 0.1 mg 03/23/19 22:00 03/23/19 22:33 Catapres-Tts Patch TD 0.1 mg Tu STEFFI Administration Gabapentin 300 mg 03/24/19 09:30 Neurontin PO Q8HR PRN Pain, Moderate (4-6) Hydralazine HCl 10 mg 03/24/19 07:27 Apresoline IV Q4HR PRN Hypertension Dextrose/Sodium Chloride 1,000 mls @ 150 mls/hr 03/23/19 17:00 03/25/19 06:45 D5/0.45ns IV 75 mls/hr DIRECT STEFFI Administration Ceftriaxone Sodium 1 gm in 50 mls @ 100 mls/hr 03/24/19 14:00 03/25/19 10:06 Rocephin/Ns 1 Gm/50 Ml IV 100 mls/hr Q24HR STEFFI Administration Protocol Sodium Chloride 500 mls @ 0 mls/hr 03/25/19 10:14 Nacl 0.9% 500 Ml IV 03/25/19 23:00 ONCE STEFFI As Directed Metoclopramide HCl 10 mg 03/23/19 12:11 Reglan IV Q6H PRN N/V if NPO. Morphine Sulfate 2 mg 03/24/19 07:00 03/25/19 10:05 Morphine IV 2 mg Q4H PRN Administration Pain, Moderate (4-6) Morphine Sulfate 4 mg 03/24/19 08:44 03/24/19 12:00 Morphine IV 4 mg Q4H PRN Administration Pain , Severe (7-10) Naloxone HCl 0.1 mg 03/23/19 12:11 Narcan 0.4 Mg/1 Ml IV Q2MIN PRN Res Rate </= 8 or 02 SAT < 92% Ondansetron HCl 4 mg 03/23/19 12:11 03/24/19 12:00 Zofran IV 4 mg Q8H PRN Administration N/V unrelieved by Reglan Pantoprazole Sodium 40 mg 03/24/19 10:00 03/25/19 10:05 Protonix IV 40 mg QDAY STEFFI Administration Sodium Chloride 10 ml 03/23/19 22:00 03/25/19 10:06 Sodium Chloride Flush Syringe 10 Ml IV 10 ml BID STEFFI Administration Sodium Chloride 10 ml 03/23/19 14:51 03/24/19 12:01 Sodium Chloride Flush Syringe 10 Ml IV 10 ml PRN PRN Administration LINE FLUSH
--- NOTE | 2019-03-25 18:45 | Progress Note ---
Assessment and Plan - Patient Problems (1) Serosal tear of colon Current Visit: Yes Status: Acute Plan to address problem: Pt stable. s/p serosal repair of anterior rectal wall. Okay to advance to soft diet. (2) S/P appendectomy Current Visit: Yes Status: Acute Plan to address problem: Discussed the reasoning behind appendectomy. She acknowledged understanding. Subjective Date of service: 03/25/19 Patient Reports: Positive: no new complaints, still having pain, tolerating liquids well, flatus. Negative: nausea, vomiting Objective Vital Signs - 12hr 03/25/19 03/25/19 03/25/19 07:00 07:30 08:00 Temperature 99.2 F Pulse Rate 98 H 100 H 98 H Respiratory 19 20 11 L Rate Blood Pressure 140/85 142/85 141/90 O2 Sat by Pulse 96 96 99 Oximetry 03/25/19 03/25/19 03/25/19 08:30 09:00 09:30 Temperature Pulse Rate 98 H 98 H 94 H Respiratory 18 18 13 Rate Blood Pressure 152/90 168/93 148/87 O2 Sat by Pulse 98 98 100 Oximetry 03/25/19 03/25/19 03/25/19 10:00 10:30 11:00 Temperature Pulse Rate 96 H 99 H 97 H Respiratory 15 23 20 Rate Blood Pressure 153/109 150/106 162/95 O2 Sat by Pulse 100 100 100 Oximetry 03/25/19 03/25/19 03/25/19 11:30 12:00 12:10 Temperature 98.8 F Pulse Rate 90 94 H 94 H Respiratory 19 10 L Rate Blood Pressure 161/92 165/96 165/96 O2 Sat by Pulse 99 99 Oximetry - General physical appearance no distress, no pain - Respiratory normal expansion, normal respiratory effort - Abdomen soft - Psychiatric oriented to time, oriented to person, oriented to place, speech is normal, memory intact - Labs 03/25/19 04:59 03/25/19 04:59 Diabetes panel 03/25/19 Range/Units 04:59 Sodium 148 H (137-145) mmol/L Potassium 4.1 (3.6-5.0) mmol/L Chloride 107.6 H (98-107) mmol/L Carbon Dioxide 25 (22-30) mmol/L BUN 23 H (7-17) mg/dL Creatinine 2.2 H (0.7-1.2) mg/dL Glucose 112 H (65-100) mg/dL Calcium 9.2 (8.4-10.2) mg/dL AST 11 (5-40) units/L ALT 6 L (7-56) units/L Alkaline Phosphatase 48 (35-129) units/L Total Protein 6.6 (6.3-8.2) g/dL Albumin 3.6 L (3.9-5) g/dL Calcium panel 03/25/19 Range/Units 04:59 Calcium 9.2 (8.4-10.2) mg/dL Albumin 3.6 L (3.9-5) g/dL Pituitary panel 03/25/19 Range/Units 04:59 Sodium 148 H (137-145) mmol/L Potassium 4.1 (3.6-5.0) mmol/L Chloride 107.6 H (98-107) mmol/L Carbon Dioxide 25 (22-30) mmol/L BUN 23 H (7-17) mg/dL Creatinine 2.2 H (0.7-1.2) mg/dL Glucose 112 H (65-100) mg/dL Calcium 9.2 (8.4-10.2) mg/dL Adrenal panel 03/25/19 Range/Units 04:59 Sodium 148 H (137-145) mmol/L Potassium 4.1 (3.6-5.0) mmol/L Chloride 107.6 H (98-107) mmol/L Carbon Dioxide 25 (22-30) mmol/L BUN 23 H (7-17) mg/dL Creatinine 2.2 H (0.7-1.2) mg/dL Glucose 112 H (65-100) mg/dL Calcium 9.2 (8.4-10.2) mg/dL Total Bilirubin 0.20 (0.1-1.2) mg/dL AST 11 (5-40) units/L ALT 6 L (7-56) units/L Alkaline Phosphatase 48 (35-129) units/L Total Protein 6.6 (6.3-8.2) g/dL Albumin 3.6 L (3.9-5) g/dL
--- NOTE | 2019-03-25 20:00 | Event Note ---
Date: 03/25/19 +flatus, c/o FERRERA, thinks it's d/t to bp meds, o/w no complaints. Pain controlled with MSO4, no bleeding She refused PRBCs at this time, desires to get results of CBC tomorrow +Voiding w/o difficulty, tolerating clears. ? advance to soft diet tomorrow. Encouraged ambulation
[2019-03-26] MEDS: MORPHINE IV PRN ×4 (04:38→21:33)
[2019-03-26] MEDS: SODIUM CHLORIDE FLUSH SYRINGE 10 ML IV SCH ×2 (04:42→10:40)
[2019-03-26 05:16] LABS: Basophils % (Auto) 0.1 % (0.0-1.8); Eosinophils % (Auto) 0.3 % (0.0-4.3); Hematocrit 21.2 % (30.3-42.9); Hemoglobin 7.4 gm/dl (10.1-14.3); Lymphocytes # (Auto) 1.1 K/mm3 (1.2-5.4); Lymphocytes % (Auto) 11.3 % (13.4-35.0); Mean Corpuscular HGB Conc 35 % (30-34); Mean Corpuscular Volume 94 fl (79-97); Monocytes # (Auto) 0.8 K/mm3 (0.0-0.8); Monocytes % (Auto) 7.7 % (0.0-7.3); Platelet Count 302 K/mm3 (140-440); Red Blood Count 2.26 M/mm3 (3.65-5.03); Red Cell Distribution Width 13.2 % (13.2-15.2)
[2019-03-26 05:43] LABS: Albumin 3.7 g/dL (3.9-5); Calcium 9.2 mg/dL (8.4-10.2)
[2019-03-26] MEDS: D5/0.45NS 1,000 ML IV SCH ×2 (06:42→14:49)
--- NOTE | 2019-03-26 07:50 | Event Note ---
Date: 03/25/19 [id number]
--- NOTE | 2019-03-26 09:59 | Progress Note ---
Assessment and Plan - Patient Problems (1) S/P abdominal supracervical subtotal hysterectomy Current Visit: Yes Status: Acute Plan to address problem: Doing well POD#3 soft diet. Encourage ambulation in beard and incentive spirometer usages, voiding well. Will consider d/c home over the weekend if stable h/h, VSS and approval from Oncology, hospitalist, hephrology and general surgery Patient voiced understanding and agrees with plan of care (2) Adenocarcinoma Current Visit: Yes Status: Acute Plan to address problem: Statef she had GI evaluation ~3-4 months ago that was normal (3) Hydronephrosis Current Visit: Yes Status: Acute Qualifiers: Hydronephrosis type: other Qualified Code(s): N13.39 - Other hydronephrosis (4) SULTANA (acute kidney injury) Current Visit: Yes Status: Acute Plan to address problem: Creatnine improving (5) HTN (hypertension) Current Visit: Yes Status: Chronic Qualifiers: Hypertension type: essential hypertension Qualified Code(s): I10 - Essential (primary) hypertension Plan to address problem: Currently controlled on Catapres (6) Serosal tear of colon Current Visit: Yes Status: Acute (7) Status post ovarian cystectomy Current Visit: Yes Status: Acute (8) S/P appendectomy Current Visit: Yes Status: Acute (9) Anemia Current Visit: Yes Status: Acute Qualifiers: Other causes of anemia: acute posthemorrhagic Plan to address problem: Still with 0.1decrease of hgb, however VSS, no evidence of active bleeding,. She declined transfusion yesterday. Again encouraged transfusion at least 1uPRBC. Will attempt to discuss ? Fe infusion with Dr. 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 Negative: vomiting Objective Vital Signs - 12hr 03/25/19 03/25/19 03/25/19 22:00 23:58 23:59 Temperature 98.3 F Pulse Rate 123 H 90 Respiratory 20 Rate Blood Pressure 148/76 Blood Pressure [Left] O2 Sat by Pulse 96 Oximetry 03/26/19 03/26/19 05:12 07:24 Temperature 98.6 F 98.6 F Pulse Rate 103 H 103 H Respiratory 18 16 Rate Blood Pressure 150/79 Blood Pressure 150/87 [Left] O2 Sat by Pulse 97 99 Oximetry - General physical appearance well nourished, no distress - Respiratory normal expansion, normal respiratory effort, clear to auscultation - Abdomen soft, bowel sounds normal, not distended, not rebound, not guarding, surgical scars (trocar and pfannestial: no s/s infection, c/d/i) - Genitourinary other (no bleeding) - Psychiatric oriented to time, oriented to person, oriented to place, speech is normal - Labs 03/26/19 04:51 03/26/19 04:51 Diabetes panel 03/26/19 Range/Units 04:51 Sodium 146 H (137-145) mmol/L Potassium 3.5 L (3.6-5.0) mmol/L Chloride 104.9 (98-107) mmol/L Carbon Dioxide 27 (22-30) mmol/L BUN 15 (7-17) mg/dL Creatinine 1.5 H (0.7-1.2) mg/dL Glucose 130 H (65-100) mg/dL Calcium 9.2 (8.4-10.2) mg/dL AST 11 (5-40) units/L ALT 6 L (7-56) units/L Alkaline Phosphatase 52 (35-129) units/L Total Protein 6.8 (6.3-8.2) g/dL Albumin 3.7 L (3.9-5) g/dL Calcium panel 03/26/19 Range/Units 04:51 Calcium 9.2 (8.4-10.2) mg/dL Albumin 3.7 L (3.9-5) g/dL Pituitary panel 03/26/19 Range/Units 04:51 Sodium 146 H (137-145) mmol/L Potassium 3.5 L (3.6-5.0) mmol/L Chloride 104.9 (98-107) mmol/L Carbon Dioxide 27 (22-30) mmol/L BUN 15 (7-17) mg/dL Creatinine 1.5 H (0.7-1.2) mg/dL Glucose 130 H (65-100) mg/dL Calcium 9.2 (8.4-10.2) mg/dL Adrenal panel 03/26/19 Range/Units 04:51 Sodium 146 H (137-145) mmol/L Potassium 3.5 L (3.6-5.0) mmol/L Chloride 104.9 (98-107) mmol/L Carbon Dioxide 27 (22-30) mmol/L BUN 15 (7-17) mg/dL Creatinine 1.5 H (0.7-1.2) mg/dL Glucose 130 H (65-100) mg/dL Calcium 9.2 (8.4-10.2) mg/dL Total Bilirubin 0.20 (0.1-1.2) mg/dL AST 11 (5-40) units/L ALT 6 L (7-56) units/L Alkaline Phosphatase 52 (35-129) units/L Total Protein 6.8 (6.3-8.2) g/dL Albumin 3.7 L (3.9-5) g/dL
[2019-03-26] MEDS: ROCEPHIN/NS 1 GM/50 ML 1 GM/50 ML BAG IV SCH (10:30)
[2019-03-26] MEDS: PROTONIX IV SCH (10:47)
--- NOTE | 2019-03-26 11:39 | Progress Note ---
Assessment and Plan Assessment and plan: --Hypokalemia; 20 mEq of KCl 1 dose --Hypertension; moderate control Continue clonidine, IV hydralazine PRN for BP more than 155/90 Resume losartan and amlodipine, optimize medications --Acute renal failure; vasomotor nephropathy Creatinine levels trending down, avoid nephrotoxic Nephrology following Renal ultrasound if no improvement --Bilateral hydronephrosis; status post bilateral J stent placement Urology following --Adenocarcinoma; [employer] oncology following --Hemoglobin continue to drop dropped from 11.8-8.5-7.5 Closely monitor H&H and transfuse as needed, [employer] recommended 1 unit of PRBC transfusion, Patient refused --Deficiency anemia; iron supplements once patient is able to take oral --Pelvic pain and abnormal uterine bleeding ; s/p robotic assisted hysterectomy converted to abdominal supracervical hysterectomy (B) salpingectomy (R) ovarian cystectomy appendectomy Friable posterior vaginal cul-de-sac tissue Repair rectal colon serosal denuded tissue Management per [employer]. --s/p appendectomy: Continue postop care per surgery clear liquids --DVT prophylaxis; SCD --Obesity; BMI 30.5, advised weight reduction when medically stable Plan of care is reviewed with patient and her nurse History Interval history: Patient seen and examined medical records reviewed Patient feels slightly better Had flatus today Started on clear liquids, advance as tolerated New Complaints Vital signs noted Hospitalist Physical - Constitutional Vitals: Temp Pulse Resp BP Pulse Ox 98.6 F 103 H 16 150/79 100 03/26/19 07:24 03/26/19 07:24 03/26/19 07:24 03/26/19 07:24 03/26/19 10:00 General appearance: Present: no acute distress, well-nourished - EENT Eyes: Present: PERRL, EOM intact - Neck Neck: Present: supple, normal ROM - Respiratory Respiratory effort: normal Respiratory: bilateral: diminished, negative: rales, rhonchi, wheezing - Cardiovascular Rhythm: regular Heart Sounds: Present: S1 & S2 - Extremities Extremities: no ischemia, No edema - Abdominal General gastrointestinal: soft, non-tender, non-distended, normal bowel sounds - Integumentary Integumentary: Present: clear, warm - Psychiatric Psychiatric: appropriate mood/affect, cooperative - Neurologic Neurologic: moves all extremities Results - Labs CBC & Chem 7: 03/26/19 04:51 03/26/19 04:51 Labs: Laboratory Last Values WBC 10.1 K/mm3 (4.5-11.0) 03/26/19 04:51 RBC 2.26 M/mm3 (3.65-5.03) L 03/26/19 04:51 Hgb 7.4 gm/dl (10.1-14.3) L 03/26/19 04:51 Hct 21.2 % (30.3-42.9) L 03/26/19 04:51 MCV 94 fl (79-97) 03/26/19 04:51 MCH 33 pg (28-32) H 03/26/19 04:51 MCHC 35 % (30-34) H 03/26/19 04:51 RDW 13.2 % (13.2-15.2) 03/26/19 04:51 Plt Count 302 K/mm3 (140-440) 03/26/19 04:51 Lymph % (Auto) 11.3 % (13.4-35.0) L 03/26/19 04:51 [place] % (Auto) 7.7 % (0.0-7.3) H 03/26/19 04:51 Eos % (Auto) 0.3 % (0.0-4.3) 03/26/19 04:51 Baso % (Auto) 0.1 % (0.0-1.8) 03/26/19 04:51 Lymph # 1.1 K/mm3 (1.2-5.4) L 03/26/19 04:51 [place] # 0.8 K/mm3 (0.0-0.8) 03/26/19 04:51 Eos # 0.0 K/mm3 (0.0-0.4) 03/26/19 04:51 Baso # 0.0 K/mm3 (0.0-0.1) 03/26/19 04:51 Seg Neutrophils % 80.6 % (40.0-70.0) H 03/26/19 04:51 Seg Neutrophils # 8.1 K/mm3 (1.8-7.7) H 03/26/19 04:51 Sodium 146 mmol/L (137-145) H 03/26/19 04:51 Potassium 3.5 mmol/L (3.6-5.0) L 03/26/19 04:51 Chloride 104.9 mmol/L (98-107) 03/26/19 04:51 Carbon Dioxide 27 mmol/L (22-30) 03/26/19 04:51 18 mmol/L 03/26/19 04:51 BUN 15 mg/dL (7-17) 03/26/19 04:51 1.5 mg/dL (0.7-1.2) H 03/26/19 04:51 Estimated GFR 45 ml/min 03/26/19 04:51 10 % 03/26/19 04:51 Glucose 130 mg/dL (65-100) H 03/26/19 04:51 Calcium 9.2 mg/dL (8.4-10.2) 03/26/19 04:51 Iron 13 ug/dL (37-170) L 03/25/19 08:18 TIBC 137 mcg/dL (250-450) L 03/25/19 08:18 505.7 ng/mL (13.0-400.0) H 03/25/19 08:18 0.20 mg/dL (0.1-1.2) 03/26/19 04:51 AST 11 units/L (5-40) 03/26/19 04:51 ALT 6 units/L (7-56) L 03/26/19 04:51 52 units/L (35-129) 03/26/19 04:51 6.8 g/dL (6.3-8.2) 03/26/19 04:51 3.7 g/dL (3.9-5) L 03/26/19 04:51 1.2 % 03/26/19 04:51 Vitamin B12 759.5 pg/mL (211-911) 03/25/19 08:18 19.59 ng/mL (7.3-26.0) 03/25/19 08:18 Straw (Yellow) 03/23/19 13:40 Clear (Clear) 03/23/19 13:40 6.0 (5.0-7.0) 03/23/19 13:40 Ur Specific [place] 1.010 (1.003-1.030) 03/23/19 13:40 <15 mg/dl mg/dL (Negative) 03/23/19 13:40 Neg mg/dL (Negative) 03/23/19 13:40 Neg mg/dL (Negative) 03/23/19 13:40 Sm (Negative) 03/23/19 13:40 Neg (Negative) 03/23/19 13:40 Neg (Negative) 03/23/19 13:40 < 2.0 mg/dL (<2.0) 03/23/19 13:40 Ur Leukocyte Esterase Sm (Negative) 03/23/19 13:40 9.0 /HPF (0.0-6.0) H 03/23/19 13:40 9.0 /HPF (0.0-6.0) 03/23/19 13:40 1+ /HPF (Negative) 03/23/19 13:40 54.1 mg/dL (0.1-20.0) H 03/23/19 13:40 74 mmol/L 03/23/19 13:40 Hep Bs Antigen Non-reactive (Negative) 03/23/19 13:28 Non-reactive (NonReactive) 03/23/19 13:28 Blood Type O POSITIVE 03/23/19 06:45 Antibody Screen Negative 03/23/19 06:45 Crossmatch See Detail 03/23/19 06:45 Active Medications - Current Medications Current Medications: Generic Name Dose Route Start Last Admin Trade Name Freq PRN Reason Stop Dose Admin Clonidine HCl 0.1 mg 03/23/19 12:33 Catapres PO Q6HR PRN Hypertension Clonidine HCl 0.1 mg 03/23/19 22:00 03/23/19 22:33 Catapres-Tts Patch TD 0.1 mg Tu STEFFI Administration Ferrous Sulfate 325 mg 03/26/19 22:00 Feosol PO BID STEFFI Gabapentin 300 mg 03/24/19 09:30 Neurontin PO Q8HR PRN Pain, Moderate (4-6) Hydralazine HCl 10 mg 03/24/19 07:27 03/25/19 12:10 Apresoline IV 10 mg Q4HR PRN Administration Hypertension Dextrose/Sodium Chloride 1,000 mls @ 150 mls/hr 03/23/19 17:00 03/26/19 06:42 D5/0.45ns IV 150 mls/hr DIRECT STEFFI Administration Ceftriaxone Sodium 1 gm in 50 mls @ 100 mls/hr 03/24/19 14:00 03/26/19 10:30 Rocephin/Ns 1 Gm/50 Ml IV 100 mls/hr Q24HR STEFFI Administration Protocol Potassium Chloride 10 meq in 100 mls @ 100 mls/hr 03/26/19 12:00 Kcl 10meq/100ml IV 03/26/19 13:59 Q1H STEFFI Metoclopramide HCl 10 mg 03/23/19 12:11 Reglan IV Q6H PRN N/V if NPO. Morphine Sulfate 2 mg 03/24/19 07:00 03/26/19 10:48 Morphine IV 2 mg Q4H PRN Administration Pain, Moderate (4-6) Morphine Sulfate 4 mg 03/24/19 08:44 03/25/19 12:34 Morphine IV 4 mg Q4H PRN Administration Pain , Severe (7-10) Naloxone HCl 0.1 mg 03/23/19 12:11 Narcan 0.4 Mg/1 Ml IV Q2MIN PRN Res Rate </= 8 or 02 SAT < 92% Ondansetron HCl 4 mg 03/23/19 12:11 03/24/19 12:00 Zofran IV 4 mg Q8H PRN Administration N/V unrelieved by Reglan Pantoprazole Sodium 40 mg 03/24/19 10:00 03/26/19 10:47 Protonix IV 03/26/19 12:59 40 mg QDAY STEFFI Administration Pantoprazole Sodium 40 mg 03/27/19 10:00 Protonix PO DAILY STEFFI Sodium Chloride 10 ml 03/23/19 22:00 03/26/19 04:42 Sodium Chloride Flush Syringe 10 Ml IV 10 ml BID STEFFI Administration Sodium Chloride 10 ml 03/23/19 14:51 03/24/19 12:01 Sodium Chloride Flush Syringe 10 Ml IV 10 ml PRN PRN Administration LINE FLUSH Nutrition/Malnutrition Assess - Dietary Evaluation Nutrition/Malnutrition Findings: Nutrition Notes Start: 03/24/19 16:47 Freq: Status: Active Protocol: Document 03/24/19 16:47 RM (Rec: 03/24/19 16:49 RM [id number]) Nutrition Notes Need for Assessment generated from: MD Order Initial or Follow up Brief Note Subjective/Other Information Consulted for HTN diet education. Pt already famliar w/diet but took handout. Nutrition Intervention Revisit per MD consult or patient Sign Off request:
--- NOTE | 2019-03-26 12:16 | Progress Note ---
Subjective Principal diagnosis: abad on ckd Interval history: Patient was seen today for follow-up on multiple renal related issues Events of this hospitalization noted She is currently status post hysterectomy, status post retrograde stent placement Creatinine continues to improve Mild hypokalemia received potassium Patient denies having any chest pain pressure or shortness of breath Vitals labs intake output medications were reviewed Social history: Reviewed Allergies: Reviewed Family history: Reviewed Physical examination HEENT: Oral mucosa moist no pallor or icterus Neck: Supple no JVD Chest: Clear to auscultation anteriorly CVS: Regular rate and rhythm S1 and S2 heard Abdomen: Soft nontender no suprapubic masses no organomegaly appreciable Extremity: Dry skin less than 1+ peripheral edema Musculoskeletal: No joint effusion noted in knees and ankle Neurological: Alert awake Dermatology: No petechial rashes Psychiatry: No evidence of any agitation and aggression noted Assessment and plan; Acute kidney injury secondary to obstructive uropathy patient has evidence of bilateral hydronephrosis status post retrograde stent placement to urine output to be monitored Strict intake and output monitoring Has had acute kidney injury creatinine was around 2.8 post hysterectomy and appendectomy Status post supracervical subtotal hysterectomy Noted to have adenocarcinoma Renal function is markedly improved creatinine is currently 1.5 Admitted with endometriosis also has anemia Hypertension: To monitor and follow Hypernatremia: To monitor and follow, improving currently at 146 Mild hypokalemia potassium is 3.5 she has already been given potassium Free water follow-up on the labs No evidence of metabolic acidosis Patient was adequately counseled and educated regarding multiple renal related issues Pertinent lab findings were discussed with patient and patient does exhibit good understanding of renal issues. We'll continue to follow and make recommendation from renal standpoint Objective - Vital Signs Vital signs: Vital Signs - 12hr 03/26/19 03/26/19 03/26/19 05:12 07:24 10:00 Temperature 98.6 F 98.6 F Pulse Rate 103 H 103 H Respiratory 18 16 Rate Blood Pressure 150/79 Blood Pressure 150/87 [Left] O2 Sat by Pulse 97 99 100 Oximetry - Lab 03/26/19 04:51 03/26/19 04:51 Most recent lab results Calcium 9.2 mg/dL (8.4-10.2) 03/26/19 04:51 54.1 mg/dL (0.1-20.0) H 03/23/19 13:40 74 mmol/L 03/23/19 13:40 Medications & Allergies - Medications Allergies/Adverse Reactions: Allergies No Known Allergies Allergy (Unverified 03/11/19 17:56) Home Medications: Home Medications Medication Instructions Recorded Confirmed Last Taken Type Gabapentin [Neurontin] 100 mg PO BID PRN 03/11/19 03/23/19 03/19/19 09:00 History Multivitamin [Multiple Vitamins] 1 each PO DAILY 03/11/19 03/23/19 03/22/19 07: 00 History Naproxen [Naprosyn TAB] 500 mg PO BID PRN 03/11/19 03/23/19 03/22/19 07:00 History Telmisartan 40 mg PO DAILY 03/11/19 03/23/19 03/22/19 07:00 History amLODIPine [Norvasc] 5 mg PO DAILY 03/11/19 03/23/19 03/23/19 06:45 History Docusate Sodium [Colace] 100 mg PO BID PRN #30 capsule 03/26/19 Unknown Rx Ferrous Sulfate [Feosol 325 MG tab] 325 mg PO BID #90 tablet 03/26/19 Unknown Rx oxyCODONE /ACETAMINOPHEN [Percocet 1 - 2 tab PO Q4HR PRN #30 tablet 03/26/19 Unknown Rx 5/325 mg] Active Medications: Generic Name Dose Route Start Last Admin Trade Name Freq PRN Reason Stop Dose Admin Clonidine HCl 0.1 mg 03/23/19 12:33 Catapres PO Q6HR PRN Hypertension Clonidine HCl 0.1 mg 03/23/19 22:00 03/23/19 22:33 Catapres-Tts Patch TD 0.1 mg Tu STEFFI Administration Ferrous Sulfate 325 mg 03/26/19 22:00 Feosol PO BID STEFFI Gabapentin 300 mg 03/24/19 09:30 Neurontin PO Q8HR PRN Pain, Moderate (4-6) Hydralazine HCl 10 mg 03/24/19 07:27 03/25/19 12:10 Apresoline IV 10 mg Q4HR PRN Administration Hypertension Dextrose/Sodium Chloride 1,000 mls @ 150 mls/hr 03/23/19 17:00 03/26/19 06:42 D5/0.45ns IV 150 mls/hr DIRECT STEFFI Administration Ceftriaxone Sodium 1 gm in 50 mls @ 100 mls/hr 03/24/19 14:00 03/26/19 10:30 Rocephin/Ns 1 Gm/50 Ml IV 100 mls/hr Q24HR STEFFI Administration Protocol Potassium Chloride 10 meq in 100 mls @ 100 mls/hr 03/26/19 12:30 Kcl 10meq/100ml IV 03/26/19 14:29 Q1H STEFFI Metoclopramide HCl 10 mg 03/23/19 12:11 Reglan IV Q6H PRN N/V if NPO. Morphine Sulfate 2 mg 03/24/19 07:00 03/26/19 10:48 Morphine IV 2 mg Q4H PRN Administration Pain, Moderate (4-6) Morphine Sulfate 4 mg 03/24/19 08:44 03/25/19 12:34 Morphine IV 4 mg Q4H PRN Administration Pain , Severe (7-10) Naloxone HCl 0.1 mg 03/23/19 12:11 Narcan 0.4 Mg/1 Ml IV Q2MIN PRN Res Rate </= 8 or 02 SAT < 92% Ondansetron HCl 4 mg 03/23/19 12:11 03/24/19 12:00 Zofran IV 4 mg Q8H PRN Administration N/V unrelieved by Reglan Pantoprazole Sodium 40 mg 03/24/19 10:00 03/26/19 10:47 Protonix IV 03/26/19 12:59 40 mg QDAY STEFFI Administration Pantoprazole Sodium 40 mg 03/27/19 10:00 Protonix PO DAILY STEFFI Sodium Chloride 10 ml 03/23/19 22:00 03/26/19 04:42 Sodium Chloride Flush Syringe 10 Ml IV 10 ml BID STEFFI Administration Sodium Chloride 10 ml 03/23/19 14:51 03/24/19 12:01 Sodium Chloride Flush Syringe 10 Ml IV 10 ml PRN PRN Administration LINE FLUSH
[2019-03-26] MEDS ORDERED: NORVASC PO ONE (14:25)
[2019-03-26] MEDS ORDERED: COZAAR PO ONE (14:25)
[2019-03-26] MEDS: KCL 10MEQ/100ML 10 MEQ/100 ML BAG IV SCH ×2 (14:55→17:26)
--- NOTE | 2019-03-26 15:40 | Consultation ---
HISTORY OF PRESENT ILLNESS: I saw the patient, a 48-year-old female in the ICU. The patient had come to the hospital for robotic-assisted hysterectomy which was converted to abdominal supracervical hysterectomy. She is in the ICU. 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 I have been asked to evaluate the patient for this. At this time, the patient has abdominal pain. No headache, no visual disturbances. No ear discharge, no chest pain, no palpitations. No shortness of breath at rest. No vomiting, no diarrhea. PAST MEDICAL HISTORY: She has history of heavy cycles in the past. PAST MEDICAL HISTORY: Hypertension and . SOCIAL HISTORY: No history of tobacco or alcohol usage. FAMILY HISTORY: Hypertension. ALLERGIES: None. HOME MEDICATIONS: Multivitamin, Neurontin, naproxen, telmisartan, and amlodipine. During admission, the patient was also seen by General surgery, Anesthesia, Nephrology team, and also Urology team. PHYSICAL EXAMINATION: VITAL SIGNS: Temperature 98, pulse 90, respirations 20, BP 148/76. HEENT: Pallor present. No icterus. NECK: No neck lymph nodes. HEART: S1, S2. LUNGS: Clear to auscultation. ABDOMEN: Soft with surgery. EXTREMITIES: No calf tenderness. NEUROLOGIC: Awake, answers simple questions. She is getting pain medications. LABORATORY DATA: White cell 9, hemoglobin 7.5, MCV 95, platelet 290, potassium 4.1, creatinine 2.2, calcium 9.2, bilirubin 0.2. Serum iron 13, ferritin 505, B12 759, folate 19. Pathology, LYN-BSO shows invasive high-grade adenocarcinoma favor endocervical origin. Carcinoma extends to the parametrial and paracervical region. Vaginal biopsy also shows high grade adenocarcinoma of the right oophorectomy suggest high-grade adenocarcinoma involving both outer surface. ASSESSMENT: 1. Adenocarcinoma. This is presumed to be at endocervical, right ovary is involved. The vagina is involved. This may indicate advanced disease. I discussed with the patient regarding chemotherapy. The patient is looking into second opinion. She is postop. It needs some time for it to heal. 2. History of serosal tear of the colon, status post surgery. 3. History of appendectomy. 5. History of kidney injury. 6. Anemia. 7. Hypertension. 8. Iron deficiency. We will look into iron supplement. JOB# [id number] NM/NTS
[2019-03-26] MEDS ORDERED: FERRLECIT 125 MG in NACL 0.9% 100 ML IV ONE (16:00)
--- NOTE | 2019-03-26 18:00 | Progress Note ---
Assessment and Plan - Patient Problems (1) Serosal tear of colon Current Visit: Yes Status: Acute Plan to address problem: Pt stable. s/p serosal repair of anterior rectal wall. Diet as tolerated. Bowel movement should occur soon. Ok to give laxative if no BM in next 1-2 days. Senokot works well. Ok to d/c home from my perspective (2) S/P appendectomy Current Visit: Yes Status: Acute Plan to address problem: Discussed the reasoning behind appendectomy. She acknowledged understanding. Subjective Date of service: 03/26/19 Patient Reports: Positive: tolerating a regular diet, flatus, no bowel movement, other (pt sad due to recently finding out about cancer diagnosis) Objective Vital Signs - 12hr 03/26/19 03/26/19 03/26/19 07:24 10:00 11:05 Temperature 98.6 F Pulse Rate 103 H 102 H 93 H Pulse Rate [ Apical] Pulse Rate [ Left Radial] Pulse Rate [ Radial] Respiratory 16 Rate Blood Pressure 150/79 149/90 O2 Sat by Pulse 99 100 100 Oximetry 03/26/19 03/26/19 03/26/19 11:57 12:00 15:05 Temperature 98.6 F Pulse Rate 102 H 65 Pulse Rate [ 92 H Apical] Pulse Rate [ 92 H Left Radial] Pulse Rate [ 92 H Radial] Respiratory 16 17 Rate Blood Pressure 162/95 149/99 O2 Sat by Pulse 100 Oximetry 03/26/19 03/26/19 15:59 16:31 Temperature 97.7 F Pulse Rate 98 H Pulse Rate [ Apical] Pulse Rate [ Left Radial] Pulse Rate [ Radial] Respiratory 16 Rate Blood Pressure 149/88 143/85 O2 Sat by Pulse 100 Oximetry - General physical appearance no pain, other (sad) - Eyes normal occular movement - Respiratory normal expansion, normal respiratory effort - Integumentary no rash, no growths, no abnormal pigmentation - Psychiatric oriented to time, oriented to person, oriented to place, speech is normal, memory intact - Labs 03/26/19 04:51 03/26/19 04:51 Diabetes panel 03/26/19 Range/Units 04:51 Sodium 146 H (137-145) mmol/L Potassium 3.5 L (3.6-5.0) mmol/L Chloride 104.9 (98-107) mmol/L Carbon Dioxide 27 (22-30) mmol/L BUN 15 (7-17) mg/dL Creatinine 1.5 H (0.7-1.2) mg/dL Glucose 130 H (65-100) mg/dL Calcium 9.2 (8.4-10.2) mg/dL AST 11 (5-40) units/L ALT 6 L (7-56) units/L Alkaline Phosphatase 52 (35-129) units/L Total Protein 6.8 (6.3-8.2) g/dL Albumin 3.7 L (3.9-5) g/dL Calcium panel 03/26/19 Range/Units 04:51 Calcium 9.2 (8.4-10.2) mg/dL Albumin 3.7 L (3.9-5) g/dL Pituitary panel 03/26/19 Range/Units 04:51 Sodium 146 H (137-145) mmol/L Potassium 3.5 L (3.6-5.0) mmol/L Chloride 104.9 (98-107) mmol/L Carbon Dioxide 27 (22-30) mmol/L BUN 15 (7-17) mg/dL Creatinine 1.5 H (0.7-1.2) mg/dL Glucose 130 H (65-100) mg/dL Calcium 9.2 (8.4-10.2) mg/dL Adrenal panel 03/26/19 Range/Units 04:51 Sodium 146 H (137-145) mmol/L Potassium 3.5 L (3.6-5.0) mmol/L Chloride 104.9 (98-107) mmol/L Carbon Dioxide 27 (22-30) mmol/L BUN 15 (7-17) mg/dL Creatinine 1.5 H (0.7-1.2) mg/dL Glucose 130 H (65-100) mg/dL Calcium 9.2 (8.4-10.2) mg/dL Total Bilirubin 0.20 (0.1-1.2) mg/dL AST 11 (5-40) units/L ALT 6 L (7-56) units/L Alkaline Phosphatase 52 (35-129) units/L Total Protein 6.8 (6.3-8.2) g/dL Albumin 3.7 L (3.9-5) g/dL
--- NOTE | 2019-03-26 20:01 | Event Note ---
Date: 03/26/19 Resting in bed, alert and appropriate responsive. Doing well. Questions answered, plan of care explained. Will refer to Dr. Mandy Gibson after discharge. She's aware Dr. Goddard will evaluate her this weekend.
[2019-03-26] MEDS: FEOSOL PO SCH (21:33)
[2019-03-26] MEDS ORDERED: MIRALAX 3350 PO PRN (23:07)
--- NOTE | 2019-03-26 23:52 | Hem/Onc Progress Note ---
Assessment and Plan 1. 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 The vagina is involved. parametrium is involved. This indicates advanced disease. I discussed with the patient regarding chemotherapy. The patient is looking into second opinion. She is postop. It needs some time for sx wound to heal. 2. History of serosal tear of the colon, status post surgery. 3. History of appendectomy. 5. History of kidney injury. 6. Anemia. 7. Hypertension. 8. Iron deficiency. iron supplement. 03/26/2019 - iv iron d/w pt and reg cancer - advanced stage - need for chemo they want to wait - Patient Problems (1) Adenocarcinoma Current Visit: Yes Status: Acute Subjective Date of service: 03/26/19 Principal diagnosis: uterine ca Interval history: transferred to floor + Objective - Exam Narrative Exam: Pain - post op General appearance no acute distress Performance status completely disabled Eyes EOM intact ENT hearing intact/ Clear oral mucosa LNs - cervical not palpable Neck normal ROM Respiratory Normal Breath sounds - CTA CVS S1 S2 + Extremities normal temperature/ no edema General GI Soft non tender - s/p sx Rectal deferred Female - deferred Skin warm Musculoskeletal strength equal bilaterally Neurologically no Focal deficit/ moves all extremities - Constitutional Vitals: Last Vital Signs Temp 98.6 F 03/26/19 19:36 Pulse 116 H 03/26/19 22:00 Resp 18 03/26/19 19:36 BP 139/76 03/26/19 19:36 Pulse Ox 100 03/26/19 19:36 - Labs Lab Results: Laboratory Results - last 24 hr 03/26/19 03/26/19 04:51 04:51 WBC 10.1 RBC 2.26 L Hgb 7.4 L Hct 21.2 L MCV 94 MCH 33 H MCHC 35 H RDW 13.2 Plt Count 302 Lymph % (Auto) 11.3 L [place] % (Auto) 7.7 H Eos % (Auto) 0.3 Baso % (Auto) 0.1 Lymph # 1.1 L [place] # 0.8 Eos # 0.0 Baso # 0.0 Seg Neutrophils % 80.6 H Seg Neutrophils # 8.1 H Sodium 146 H Potassium 3.5 L Chloride 104.9 Carbon Dioxide 27 Anion Gap 18 BUN 15 Creatinine 1.5 H Estimated GFR 45 BUN/Creatinine Ratio 10 Glucose 130 H Calcium 9.2 Total Bilirubin 0.20 AST 11 ALT 6 L Alkaline Phosphatase 52 Total Protein 6.8 Albumin 3.7 L Albumin/Globulin Ratio 1.2 Medications & Allergies - Medications Allergies/Adverse Reactions: Allergies No Known Allergies Allergy (Unverified 03/11/19 17:56) Home Medications: Home Medications Medication Instructions Recorded Confirmed Last Taken Type Multivitamin [Multiple Vitamins] 1 each PO DAILY 03/11/19 03/23/19 03/22/19 07:00 History RX: Gabapentin [Neurontin] 100 mg PO BID PRN 03/11/19 03/23/19 03/19/19 09:00 History RX: Naproxen [Naprosyn TAB] 500 mg PO BID PRN 03/11/19 03/23/19 03/22/19 07:00 History RX: amLODIPine [Norvasc] 5 mg PO DAILY 03/11/19 03/23/19 03/23/19 06:45 History Telmisartan 40 mg PO DAILY 03/11/19 03/23/19 03/22/19 07:00 History Docusate Sodium [Colace] 100 mg PO BID PRN #30 capsule 03/26/19 Unknown Rx RX: Ferrous Sulfate [Feosol 325 MG 325 mg PO BID #90 tablet 03/26/19 Unknown Rx tab] RX: oxyCODONE /ACETAMINOPHEN 1 - 2 tab PO Q4HR PRN #30 tablet 03/26/19 Unknown Rx [Percocet 5/325 mg] Active Medications: Generic Name Dose Route Start Last Admin Trade Name Freq PRN Reason Stop Dose Admin Amlodipine Besylate 5 mg 03/27/19 10:00 Norvasc PO QDAY STEFFI Clonidine HCl 0.1 mg 03/23/19 12:33 Catapres PO Q6HR PRN Hypertension Clonidine HCl 0.1 mg 03/23/19 22:00 03/23/19 22:33 Catapres-Tts Patch TD 0.1 mg Tu [facility] Administration Docusate Sodium 100 mg 03/26/19 23:45 Colace PO BID STEFFI Ferrous Sulfate 325 mg 03/26/19 22:00 03/26/19 21:33 Feosol PO 325 mg BID STEFFI Administration Gabapentin 300 mg 03/24/19 09:30 Neurontin PO Q8HR PRN Pain, Moderate (4-6) Hydralazine HCl 10 mg 03/24/19 07:27 03/25/19 12:10 Apresoline IV 10 mg Q4HR PRN Administration Hypertension Dextrose/Sodium Chloride 1,000 mls @ 150 mls/hr 03/23/19 17:00 03/26/19 14:49 D5/0.45ns IV 150 mls/hr DIRECT STEFFI Administration Ceftriaxone Sodium 1 gm in 50 mls @ 100 mls/hr 03/24/19 14:00 03/26/19 10:30 Rocephin/Ns 1 Gm/50 Ml IV 100 mls/hr Q24HR STEFFI Administration Protocol Losartan Potassium 50 mg 03/27/19 10:00 Cozaar PO QDAY STEFFI Metoclopramide HCl 10 mg 03/23/19 12:11 Reglan IV Q6H PRN N/V if NPO. Morphine Sulfate 2 mg 03/24/19 07:00 03/26/19 16:02 Morphine IV 2 mg Q4H PRN Administration Pain, Moderate (4-6) Morphine Sulfate 4 mg 03/24/19 08:44 03/26/19 21:33 Morphine IV 4 mg Q4H PRN Administration Pain , Severe (7-10) Naloxone HCl 0.1 mg 03/23/19 12:11 Narcan 0.4 Mg/1 Ml IV Q2MIN PRN Res Rate </= 8 or 02 SAT < 92% Ondansetron HCl 4 mg 03/23/19 12:11 03/24/19 12:00 Zofran IV 4 mg Q8H PRN Administration N/V unrelieved by Reglan Pantoprazole Sodium 40 mg 03/27/19 10:00 Protonix PO DAILY STEFFI Polyethylene Glycol 17 gm 03/26/19 23:07 Miralax 3350 PO QDAY PRN Constipation Sodium Chloride 10 ml 03/23/19 22:00 03/26/19 10:40 Sodium Chloride Flush Syringe 10 Ml IV 10 ml BID STEFFI Administration Sodium Chloride 10 ml 03/23/19 14:51 03/24/19 12:01 Sodium Chloride Flush Syringe 10 Ml IV 10 ml PRN PRN Administration LINE FLUSH
[2019-03-27] MEDS: COLACE PO SCH ×3 (02:41→21:27)
[2019-03-27] MEDS: SODIUM CHLORIDE FLUSH SYRINGE 10 ML IV SCH ×3 (02:45→21:33)
[2019-03-27 07:02] LABS: Basophils % (Auto) 0.6 % (0.0-1.8); Eosinophils # (Auto) 0.3 K/mm3 (0.0-0.4); Eosinophils % (Auto) 3.7 % (0.0-4.3); Hematocrit 20.4 % (30.3-42.9); Hemoglobin 7.1 gm/dl (10.1-14.3); Lymphocytes # (Auto) 1.2 K/mm3 (1.2-5.4); Lymphocytes % (Auto) 17.7 % (13.4-35.0); Mean Corpuscular HGB Conc 35 % (30-34); Mean Corpuscular Volume 94 fl (79-97); Monocytes # (Auto) 0.6 K/mm3 (0.0-0.8); Monocytes % (Auto) 8.5 % (0.0-7.3); Platelet Count 340 K/mm3 (140-440); Red Blood Count 2.16 M/mm3 (3.65-5.03); Red Cell Distribution Width 13.2 % (13.2-15.2)
[2019-03-27 07:27] LABS: Albumin 3.7 g/dL (3.9-5); Calcium 9.4 mg/dL (8.4-10.2)
[2019-03-27] MEDS: MORPHINE IV PRN ×2 (07:50→21:27)
[2019-03-27] MEDS: D5/0.45NS 1,000 ML IV SCH ×2 (07:55→18:54)
--- NOTE | 2019-03-27 09:34 | Progress Note ---
Assessment and Plan - Patient Problems (1) SULTANA (acute kidney injury) Current Visit: Yes Status: Acute Plan to address problem: Patient creatinine continues to improve. Patient status post ureteral stents (2) Adenocarcinoma Current Visit: Yes Status: Acute Plan to address problem: Patient is to follow up outpatient with referral to Dr. Zeus Gibson (3) Anemia Current Visit: Yes Status: Acute Qualifiers: Other causes of anemia: acute posthemorrhagic Plan to address problem: The indication for transfusion was again reviewed with the patient hasn't was previously with Dr. Fuentes. Discussed possibility that her dizziness is secondary to her drop in her blood count. Discussed this indication with both the patient and her significant other and patient now agrees to blood transfusion. We'll transfuse 2 units of packed red blood cells. (4) Hydronephrosis Current Visit: Yes Status: Acute Qualifiers: Hydronephrosis type: other Qualified Code(s): N13.39 - Other hydronephrosis Plan to address problem: Stents in place (5) S/P abdominal supracervical subtotal hysterectomy Current Visit: Yes Status: Acute Plan to address problem: Healing well from surgery will continue routine postoperative care (6) S/P appendectomy Current Visit: Yes Status: Acute Subjective Date of service: 03/27/19 Patient Reports: Positive: pain is less, tolerating a regular diet, voiding w/o difficulty, flatus, no bowel movement, afebrile, other (patient states she feels a little dizzy when she is getting up) Objective Vital Signs - 12hr 03/26/19 03/26/19 03/27/19 22:00 23:35 04:10 Temperature 98.0 F 98.0 F Pulse Rate 116 H 100 H 94 H Respiratory 18 18 Rate Blood Pressure 147/89 154/90 O2 Sat by Pulse 100 100 Oximetry - General physical appearance no distress - Respiratory normal respiratory effort - Abdomen soft, tender (Appropriately), surgical scars (healing well) - Integumentary no rash, no growths, no abnormal pigmentation - Psychiatric oriented to time, oriented to person, oriented to place, speech is normal, memory intact - Labs 03/27/19 06:40 03/27/19 06:40 Diabetes panel 03/27/19 Range/Units 06:40 Sodium 145 (137-145) mmol/L Potassium 3.5 L (3.6-5.0) mmol/L Chloride 104.0 (98-107) mmol/L Carbon Dioxide 27 (22-30) mmol/L BUN 11 (7-17) mg/dL Creatinine 1.3 H (0.7-1.2) mg/dL Glucose 103 H (65-100) mg/dL Calcium 9.4 (8.4-10.2) mg/dL AST 14 (5-40) units/L ALT 6 L (7-56) units/L Alkaline Phosphatase 48 (35-129) units/L Total Protein 6.7 (6.3-8.2) g/dL Albumin 3.7 L (3.9-5) g/dL Calcium panel 03/27/19 Range/Units 06:40 Calcium 9.4 (8.4-10.2) mg/dL Albumin 3.7 L (3.9-5) g/dL Pituitary panel 03/27/19 Range/Units 06:40 Sodium 145 (137-145) mmol/L Potassium 3.5 L (3.6-5.0) mmol/L Chloride 104.0 (98-107) mmol/L Carbon Dioxide 27 (22-30) mmol/L BUN 11 (7-17) mg/dL Creatinine 1.3 H (0.7-1.2) mg/dL Glucose 103 H (65-100) mg/dL Calcium 9.4 (8.4-10.2) mg/dL Adrenal panel 03/27/19 Range/Units 06:40 Sodium 145 (137-145) mmol/L Potassium 3.5 L (3.6-5.0) mmol/L Chloride 104.0 (98-107) mmol/L Carbon Dioxide 27 (22-30) mmol/L BUN 11 (7-17) mg/dL Creatinine 1.3 H (0.7-1.2) mg/dL Glucose 103 H (65-100) mg/dL Calcium 9.4 (8.4-10.2) mg/dL Total Bilirubin 0.20 (0.1-1.2) mg/dL AST 14 (5-40) units/L ALT 6 L (7-56) units/L Alkaline Phosphatase 48 (35-129) units/L Total Protein 6.7 (6.3-8.2) g/dL Albumin 3.7 L (3.9-5) g/dL
[2019-03-27] MEDS: FEOSOL PO SCH ×2 (09:44→21:27)
[2019-03-27] MEDS: ROCEPHIN/NS 1 GM/50 ML 1 GM/50 ML BAG IV SCH (09:56)
[2019-03-27] MEDS: PROTONIX PO SCH (09:57)
[2019-03-27] MEDS ORDERED: COZAAR PO SCH (10:00)
[2019-03-27] MEDS ORDERED: NACL 0.9% 500 ML 500 ML IV ONE (10:00)
[2019-03-27] MEDS ORDERED: NORVASC PO SCH (10:00)
--- NOTE | 2019-03-27 10:53 | Progress Note ---
Subjective Principal diagnosis: abad on ckd Interval history: Patient was seen today for follow-up on multiple renal related issues Feeling much better patient was started on losartan She recently has had acute kidney failure Patient denies having any chest pain pressure or shortness of breath Vitals labs intake output medications were reviewed Social history: Reviewed Allergies: Reviewed Family history: Reviewed Physical examination HEENT: Oral mucosa moist no pallor or icterus Neck: Supple no JVD Chest: Clear to auscultation anteriorly CVS: Regular rate and rhythm S1 and S2 heard Abdomen: Soft nontender no suprapubic masses no organomegaly appreciable Extremity: Dry skin less than 1+ peripheral edema Musculoskeletal: No joint effusion noted in knees and ankle Neurological: Alert awake Dermatology: No petechial rashes Psychiatry: No evidence of any agitation and aggression noted Assessment and plan; Acute kidney injury mostly resulting from obstructive uropathy patient noted to have bilateral hydronephrosis status post stent placement She will need to follow-up with urology Would avoid losartan and her case with recent acute renal failure , may consider starting spironolactone increasing amlodipine Continue to monitor renal function patiently Creatinine was around 2.8 post hysterectomy and appendectomy Patient has adenocarcinoma Hypertension: To monitor and follow blood pressure is currently well controlled, Hypernatremia: To monitor and follow currently doing much better, Mild hypokalemia: To monitor and follow current potassium was around 3.5 that should be followed Creatinine has improved to 1.3, Pertinent lab findings were discussed with patient and patient does exhibit good understanding of renal issues. We'll continue to follow and make recommendation from renal standpoint Objective - Vital Signs Vital signs: Vital Signs - 12hr 03/26/19 03/27/19 03/27/19 23:35 04:10 09:55 Temperature 98.0 F 98.0 F 98.6 F Pulse Rate 100 H 94 H 101 H Respiratory 18 18 18 Rate Blood Pressure 147/89 154/90 Blood Pressure 131/74 [Left] O2 Sat by Pulse 100 100 100 Oximetry 03/27/19 03/27/19 09:59 10:00 Temperature Pulse Rate 101 H 101 H Respiratory Rate Blood Pressure 131/74 131/74 Blood Pressure [Left] O2 Sat by Pulse Oximetry - Lab 03/27/19 06:40 03/27/19 06:40 Most recent lab results Calcium 9.4 mg/dL (8.4-10.2) 03/27/19 06:40 54.1 mg/dL (0.1-20.0) H 03/23/19 13:40 74 mmol/L 03/23/19 13:40 Medications & Allergies - Medications Allergies/Adverse Reactions: Allergies No Known Allergies Allergy (Unverified 03/11/19 17:56) Home Medications: Home Medications Medication Instructions Recorded Confirmed Last Taken Type Gabapentin [Neurontin] 100 mg PO BID PRN 03/11/19 03/23/19 03/19/19 09:00 History Multivitamin [Multiple Vitamins] 1 each PO DAILY 03/11/19 03/23/19 03/22/19 07:00 History Naproxen [Naprosyn TAB] 500 mg PO BID PRN 03/11/19 03/23/19 03/22/19 07:00 History Telmisartan 40 mg PO DAILY 03/11/19 03/23/19 03/22/19 07:00 History amLODIPine [Norvasc] 5 mg PO DAILY 03/11/19 03/23/19 03/23/19 06:45 History Docusate Sodium [Colace] 100 mg PO BID PRN #30 capsule 03/26/19 Unknown Rx Ferrous Sulfate [Feosol 325 MG tab] 325 mg PO BID #90 tablet 03/26/19 Unknown Rx oxyCODONE /ACETAMINOPHEN [Percocet 1 - 2 tab PO Q4HR PRN #30 tablet 03/26/19 Unknown Rx 5/325 mg] Active Medications: Generic Name Dose Route Start Last Admin Trade Name Freq PRN Reason Stop Dose Admin Amlodipine Besylate 10 mg 03/27/19 10:52 Norvasc PO QDAY STEFFI Clonidine HCl 0.1 mg 03/23/19 12:33 Catapres PO Q6HR PRN Hypertension Clonidine HCl 0.1 mg 03/23/19 22:00 03/23/19 22:33 Catapres-Tts Patch TD 0.1 mg Tu STEFFI Administration Docusate Sodium 100 mg 03/26/19 23:45 03/27/19 09:44 Colace PO 100 mg BID STEFFI Administration Ferrous Sulfate 325 mg 03/26/19 22:00 03/27/19 09:44 Feosol PO 325 mg BID STEFFI Administration Gabapentin 300 mg 03/24/19 09:30 Neurontin PO Q8HR PRN Pain, Moderate (4-6) Hydralazine HCl 10 mg 03/24/19 07:27 03/25/19 12:10 Apresoline IV 10 mg Q4HR PRN Administration Hypertension Dextrose/Sodium Chloride 1,000 mls @ 150 mls/hr 03/23/19 17:00 03/27/19 07:55 D5/0.45ns IV 150 mls/hr DIRECT STEFFI Administration Ceftriaxone Sodium 1 gm in 50 mls @ 100 mls/hr 03/24/19 14:00 03/27/19 09:56 Rocephin/Ns 1 Gm/50 Ml IV 100 mls/hr Q24HR STEFFI Administration Protocol Metoclopramide HCl 10 mg 03/23/19 12:11 Reglan IV Q6H PRN N/V if NPO. Morphine Sulfate 2 mg 03/24/19 07:00 03/27/19 07:50 Morphine IV 2 mg Q4H PRN Administration Pain, Moderate (4-6) Morphine Sulfate 4 mg 03/24/19 08:44 03/26/19 21:33 Morphine IV 4 mg Q4H PRN Administration Pain , Severe (7-10) Naloxone HCl 0.1 mg 03/23/19 12:11 Narcan 0.4 Mg/1 Ml IV Q2MIN PRN Res Rate </= 8 or 02 SAT < 92% Ondansetron HCl 4 mg 03/23/19 12:11 03/24/19 12:00 Zofran IV 4 mg Q8H PRN Administration N/V unrelieved by Reglan Pantoprazole Sodium 40 mg 03/27/19 10:00 03/27/19 09:57 Protonix PO 40 mg DAILY STEFFI Administration Polyethylene Glycol 17 gm 03/26/19 23:07 Miralax 3350 PO QDAY PRN Constipation Sodium Chloride 10 ml 03/23/19 22:00 03/27/19 10:02 Sodium Chloride Flush Syringe 10 Ml IV 10 ml BID STEFFI Administration Sodium Chloride 10 ml 03/23/19 14:51 03/24/19 12:01 Sodium Chloride Flush Syringe 10 Ml IV 10 ml PRN PRN Administration LINE FLUSH Spironolactone 25 mg 03/28/19 10:00 Aldactone PO QDAY STEFFI
[2019-03-27] MEDS ORDERED: NORVASC PO ONE (12:00)
[2019-03-27] MEDS ORDERED: NACL 0.9% 500 ML 500 ML ONE (12:23)
[2019-03-27] MEDS ORDERED: K-DUR PO ONE (13:00)
[2019-03-27] MEDS ORDERED: TYLENOL PO ONE (18:25)
[2019-03-27] MEDS: ALDACTONE PO SCH (18:39)
--- NOTE | 2019-03-27 18:39 | Progress Note ---
Assessment and Plan Assessment and plan: --Anemia: Hemoglobin continue to drop dropped from 11.8-8.5-7.5 -7.1 Transfusions one to 2 units PRBC , monitor H&H --Hypokalemia; 20 mEq of KCl 1 dose --Hypertension; moderate control Continue clonidine, IV hydralazine PRN for BP more than 155/90 Resume losartan and amlodipine, optimize medications --Acute renal failure; vasomotor nephropathy Creatinine levels trending down, avoid nephrotoxic Nephrology following Renal ultrasound if no improvement --Bilateral hydronephrosis; status post bilateral J stent placement Urology following --Adenocarcinoma; [employer] oncology following --Iron Deficiency anemia; iron supplements once patient is able to take oral --Pelvic pain and abnormal uterine bleeding ; s/p robotic assisted hysterectomy converted to abdominal supracervical hysterectomy (B) salpingectomy (R) ovarian cystectomy appendectomy Friable posterior vaginal cul-de-sac tissue Repair rectal colon serosal denuded tissue Management per [employer]. --s/p appendectomy: Continue postop care per surgery clear liquids --DVT prophylaxis; SCD --Obesity; BMI 30.5, advised weight reduction when medically stable Plan of care is reviewed with patient and her nurse History Interval history: Patient seen and examined medical records reviewed She feels better this evening blood transfusion No new complaints, had flatus Tolerating clear liquids Vital signs noted Hospitalist Physical - Constitutional Vitals: Temp Pulse Resp BP Pulse Ox 98.1 F 97 H 18 165/100 100 03/27/19 12:50 03/27/19 12:50 03/27/19 12:50 03/27/19 17:46 03/27/19 12:50 General appearance: Present: mild distress, well-nourished - EENT Eyes: Present: PERRL, EOM intact - Neck Neck: Present: supple, normal ROM - Respiratory Respiratory effort: normal Respiratory: bilateral: diminished, negative: rales, rhonchi, wheezing - Cardiovascular Rhythm: regular Heart Sounds: Present: S1 & S2 - Extremities Extremities: no ischemia, No edema - Abdominal General gastrointestinal: soft, non-tender, non-distended, normal bowel sounds - Integumentary Integumentary: Present: clear, warm - Psychiatric Psychiatric: appropriate mood/affect, cooperative - Neurologic Neurologic: moves all extremities Results - Labs CBC & Chem 7: 03/27/19 06:40 03/27/19 06:40 Labs: Laboratory Last Values WBC 6.8 K/mm3 (4.5-11.0) 03/27/19 06:40 RBC 2.16 M/mm3 (3.65-5.03) L 03/27/19 06:40 Hgb 7.1 gm/dl (10.1-14.3) L 03/27/19 06:40 Hct 20.4 % (30.3-42.9) L 03/27/19 06:40 MCV 94 fl (79-97) 03/27/19 06:40 MCH 33 pg (28-32) H 03/27/19 06:40 MCHC 35 % (30-34) H 03/27/19 06:40 RDW 13.2 % (13.2-15.2) 03/27/19 06:40 Plt Count 340 K/mm3 (140-440) 03/27/19 06:40 Lymph % (Auto) 17.7 % (13.4-35.0) 03/27/19 06:40 [place] % (Auto) 8.5 % (0.0-7.3) H 03/27/19 06:40 Eos % (Auto) 3.7 % (0.0-4.3) 03/27/19 06:40 Baso % (Auto) 0.6 % (0.0-1.8) 03/27/19 06:40 Lymph # 1.2 K/mm3 (1.2-5.4) 03/27/19 06:40 [place] # 0.6 K/mm3 (0.0-0.8) 03/27/19 06:40 Eos # 0.3 K/mm3 (0.0-0.4) 03/27/19 06:40 Baso # 0.0 K/mm3 (0.0-0.1) 03/27/19 06:40 Seg Neutrophils % 69.5 % (40.0-70.0) 03/27/19 06:40 Seg Neutrophils # 4.7 K/mm3 (1.8-7.7) 03/27/19 06:40 Sodium 145 mmol/L (137-145) 03/27/19 06:40 Potassium 3.5 mmol/L (3.6-5.0) L 03/27/19 06:40 Chloride 104.0 mmol/L (98-107) 03/27/19 06:40 Carbon Dioxide 27 mmol/L (22-30) 03/27/19 06:40 18 mmol/L 03/27/19 06:40 BUN 11 mg/dL (7-17) 03/27/19 06:40 1.3 mg/dL (0.7-1.2) H 03/27/19 06:40 Estimated GFR 53 ml/min 03/27/19 06:40 8 % 03/27/19 06:40 Glucose 103 mg/dL (65-100) H 03/27/19 06:40 Calcium 9.4 mg/dL (8.4-10.2) 03/27/19 06:40 Iron 13 ug/dL (37-170) L 03/25/19 08:18 TIBC 137 mcg/dL (250-450) L 03/25/19 08:18 505.7 ng/mL (13.0-400.0) H 03/25/19 08:18 0.20 mg/dL (0.1-1.2) 03/27/19 06:40 AST 14 units/L (5-40) 03/27/19 06:40 ALT 6 units/L (7-56) L 03/27/19 06:40 48 units/L (35-129) 03/27/19 06:40 6.7 g/dL (6.3-8.2) 03/27/19 06:40 3.7 g/dL (3.9-5) L 03/27/19 06:40 1.2 % 03/27/19 06:40 Vitamin B12 759.5 pg/mL (211-911) 03/25/19 08:18 19.59 ng/mL (7.3-26.0) 03/25/19 08:18 Straw (Yellow) 03/23/19 13:40 Clear (Clear) 03/23/19 13:40 6.0 (5.0-7.0) 03/23/19 13:40 Ur Specific [place] 1.010 (1.003-1.030) 03/23/19 13:40 <15 mg/dl mg/dL (Negative) 03/23/19 13:40 Neg mg/dL (Negative) 03/23/19 13:40 Neg mg/dL (Negative) 03/23/19 13:40 Sm (Negative) 03/23/19 13:40 Neg (Negative) 03/23/19 13:40 Neg (Negative) 03/23/19 13:40 < 2.0 mg/dL (<2.0) 03/23/19 13:40 Ur Leukocyte Esterase Sm (Negative) 03/23/19 13:40 9.0 /HPF (0.0-6.0) H 03/23/19 13:40 9.0 /HPF (0.0-6.0) 03/23/19 13:40 1+ /HPF (Negative) 03/23/19 13:40 54.1 mg/dL (0.1-20.0) H 03/23/19 13:40 74 mmol/L 03/23/19 13:40 Hep Bs Antigen Non-reactive (Negative) 03/23/19 13:28 Non-reactive (NonReactive) 03/23/19 13:28 Blood Type O POSITIVE 03/27/19 10:34 Antibody Screen Negative 03/27/19 10:34 Crossmatch See Detail 03/27/19 10:34 Active Medications - Current Medications Current Medications: Generic Name Dose Route Start Last Admin Trade Name Cameron PRN Reason Stop Dose Admin Amlodipine Besylate 10 mg 03/28/19 10:00 Norvasc PO DAILY STEFFI Clonidine HCl 0.1 mg 03/23/19 12:33 Catapres PO Q6HR PRN Hypertension Clonidine HCl 0.1 mg 03/23/19 22:00 03/23/19 22:33 Catapres-Tts Patch TD 0.1 mg Tu STEFFI Administration Docusate Sodium 100 mg 03/26/19 23:45 03/27/19 09:44 Colace PO 100 mg BID STEFFI Administration Ferrous Sulfate 325 mg 03/26/19 22:00 03/27/19 09:44 Feosol PO 325 mg BID STEFFI Administration Gabapentin 300 mg 03/24/19 09:30 Neurontin PO Q8HR PRN Pain, Moderate (4-6) Hydralazine HCl 10 mg 03/24/19 07:27 03/25/19 12:10 Apresoline IV 10 mg Q4HR PRN Administration Hypertension Dextrose/Sodium Chloride 1,000 mls @ 150 mls/hr 03/23/19 17:00 03/27/19 07:55 D5/0.45ns IV 150 mls/hr DIRECT STEFFI Administration Ceftriaxone Sodium 1 gm in 50 mls @ 100 mls/hr 03/24/19 14:00 03/27/19 09:56 Rocephin/Ns 1 Gm/50 Ml IV 100 mls/hr Q24HR STEFFI Administration Protocol Metoclopramide HCl 10 mg 03/23/19 12:11 Reglan IV Q6H PRN N/V if NPO. Morphine Sulfate 2 mg 03/24/19 07:00 03/27/19 07:50 Morphine IV 2 mg Q4H PRN Administration Pain, Moderate (4-6) Morphine Sulfate 4 mg 03/24/19 08:44 03/26/19 21:33 Morphine IV 4 mg Q4H PRN Administration Pain , Severe (7-10) Naloxone HCl 0.1 mg 03/23/19 12:11 Narcan 0.4 Mg/1 Ml IV Q2MIN PRN Res Rate </= 8 or 02 SAT < 92% Ondansetron HCl 4 mg 03/23/19 12:11 03/24/19 12:00 Zofran IV 4 mg Q8H PRN Administration N/V unrelieved by Reglan Pantoprazole Sodium 40 mg 03/27/19 10:00 03/27/19 09:57 Protonix PO 40 mg DAILY STEFFI Administration Polyethylene Glycol 17 gm 03/26/19 23:07 03/27/19 17:02 Miralax 3350 PO 17 gm QDAY PRN Administration Constipation Sodium Chloride 10 ml 03/23/19 22:00 03/27/19 10:02 Sodium Chloride Flush Syringe 10 Ml IV 10 ml BID STEFFI Administration Sodium Chloride 10 ml 03/23/19 14:51 03/24/19 12:01 Sodium Chloride Flush Syringe 10 Ml IV 10 ml PRN PRN Administration LINE FLUSH Spironolactone 25 mg 03/27/19 12:00 Aldactone PO QDAY STEFFI Nutrition/Malnutrition Assess - Dietary Evaluation Nutrition/Malnutrition Findings: Nutrition Notes Start: 03/24/19 16:47 Freq: Status: Active Protocol: Document 03/24/19 16:47 RM (Rec: 03/24/19 16:49 RM [id number]) Nutrition Notes Need for Assessment generated from: MD Order Initial or Follow up Brief Note Subjective/Other Information Consulted for HTN diet education. Pt already famliar w/diet but took handout. Nutrition Intervention Revisit per MD consult or patient Sign Off request:
[2019-03-27 20:36] LABS: Hematocrit 23.8 % (30.3-42.9); Hemoglobin 8.2 gm/dl (10.1-14.3)
[2019-03-28] MEDS: D5/0.45NS 1,000 ML IV SCH (02:00)
[2019-03-28 05:01] VITALS: BP 133/81
[2019-03-28 06:10] LABS: Basophils % (Auto) 0.4 % (0.0-1.8); Eosinophils # (Auto) 0.3 K/mm3 (0.0-0.4); Eosinophils % (Auto) 4.3 % (0.0-4.3); Hematocrit 21.4 % (30.3-42.9); Hemoglobin 7.5 gm/dl (10.1-14.3); Lymphocytes # (Auto) 1.4 K/mm3 (1.2-5.4); Lymphocytes % (Auto) 21.2 % (13.4-35.0); Mean Corpuscular HGB Conc 35 % (30-34); Mean Corpuscular Volume 93 fl (79-97); Monocytes # (Auto) 0.7 K/mm3 (0.0-0.8); Monocytes % (Auto) 9.8 % (0.0-7.3); Platelet Count 312 K/mm3 (140-440); Red Blood Count 2.32 M/mm3 (3.65-5.03); Red Cell Distribution Width 13.3 % (13.2-15.2)
[2019-03-28 06:32] LABS: Alanine Aminotransferase 8 units/L (7-56); Albumin 3.2 g/dL (3.9-5); BUN/Creatinine Ratio 10; Blood Urea Nitrogen 11 mg/dL (7-17); Calcium 8.7 mg/dL (8.4-10.2); Hemolysis Index 4
[2019-03-28] MEDS ORDERED: K-DUR PO ONE (08:23)
--- NOTE | 2019-03-28 08:30 | Progress Note ---
Assessment and Plan Assessment and plan: --Anemia: Hemoglobin continue to drop dropped from 11.8-8.5-7.5 -7.1 s/p 1 unit PRBC transfusion yesterday, but improved to 8.2, today 7.5 No external evidence of bleeding. --Hypokalemia; 40 mEq KCl by mouth, 20 mEq KCl daily Monitor electrolytes --Hypertension; well controlled Continue current antihypertensives and when necessary medications --Acute renal failure; vasomotor nephropathy Resolved, avoid nephrotoxins, Nephrology following --Bilateral hydronephrosis; status post bilateral J stent placement Urology following --Adenocarcinoma; APPLIANCE WORKER oncology following --Iron Deficiency anemia; iron supplements --Moderate malnutrition/hypoalbuminemia[albumin 3.2] due to underlying condition, nutrition supplements as needed and supportive care --Pelvic pain and abnormal uterine bleeding ; s/p robotic assisted hysterectomy converted to abdominal supracervical hysterectomy (B) salpingectomy (R) ovarian cystectomy appendectomy Friable posterior vaginal cul-de-sac tissue Repair rectal colon serosal denuded tissue Management per APPLIANCE WORKER. --s/p appendectomy: Continue postop care, Surgery following Mechanical soft diet, advance as tolerated --DVT prophylaxis; SCD [pharmacologic anticoagulation in view of anemia/postop state] --Obesity; BMI 30.5, advised weight reduction when medically stable Plan of care is reviewed with patient and her nurse History Interval history: Patient examined medical records reviewed Patient feels slightly better no new complaints Vital signs noted Hospitalist Physical - Constitutional Vitals: Temp Pulse Resp BP Pulse Ox 98.0 F 84 18 133/81 99 03/28/19 04:03 03/28/19 04:03 03/28/19 04:03 03/28/19 04:03 03/28/19 04:03 General appearance: Present: no acute distress, well-nourished - EENT Eyes: Present: PERRL, EOM intact - Neck Neck: Present: supple, normal ROM - Respiratory Respiratory effort: normal Respiratory: bilateral: diminished, negative: rales, rhonchi, wheezing - Cardiovascular Rhythm: regular Heart Sounds: Present: S1 & S2 - Extremities Extremities: no ischemia, No edema - Abdominal General gastrointestinal: soft, non-tender, non-distended, normal bowel sounds - Integumentary Integumentary: Present: clear, warm - Psychiatric Psychiatric: appropriate mood/affect, cooperative - Neurologic Neurologic: moves all extremities Results - Labs CBC & Chem 7: 03/28/19 05:47 03/28/19 05:47 Labs: Laboratory Last Values WBC 6.8 K/mm3 (4.5-11.0) 03/28/19 05:47 RBC 2.32 M/mm3 (3.65-5.03) L 03/28/19 05:47 Hgb 7.5 gm/dl (10.1-14.3) L 03/28/19 05:47 Hct 21.4 % (30.3-42.9) L 03/28/19 05:47 MCV 93 fl (79-97) 03/28/19 05:47 MCH 32 pg (28-32) 03/28/19 05:47 MCHC 35 % (30-34) H 03/28/19 05:47 RDW 13.3 % (13.2-15.2) 03/28/19 05:47 Plt Count 312 K/mm3 (140-440) 03/28/19 05:47 Lymph % (Auto) 21.2 % (13.4-35.0) 03/28/19 05:47 [place] % (Auto) 9.8 % (0.0-7.3) H 03/28/19 05:47 Eos % (Auto) 4.3 % (0.0-4.3) 03/28/19 05:47 Baso % (Auto) 0.4 % (0.0-1.8) 03/28/19 05:47 Lymph # 1.4 K/mm3 (1.2-5.4) 03/28/19 05:47 [place] # 0.7 K/mm3 (0.0-0.8) 03/28/19 05:47 Eos # 0.3 K/mm3 (0.0-0.4) 03/28/19 05:47 Baso # 0.0 K/mm3 (0.0-0.1) 03/28/19 05:47 Seg Neutrophils % 64.3 % (40.0-70.0) 03/28/19 05:47 Seg Neutrophils # 4.4 K/mm3 (1.8-7.7) 03/28/19 05:47 Sodium 139 mmol/L (137-145) 03/28/19 05:47 Potassium 3.1 mmol/L (3.6-5.0) L 03/28/19 05:47 Chloride 101.0 mmol/L (98-107) 03/28/19 05:47 Carbon Dioxide 28 mmol/L (22-30) 03/28/19 05:47 13 mmol/L 03/28/19 05:47 BUN 11 mg/dL (7-17) 03/28/19 05:47 1.1 mg/dL (0.7-1.2) 03/28/19 05:47 Estimated GFR > 60 ml/min 03/28/19 05:47 10 % 03/28/19 05:47 Glucose 105 mg/dL (65-100) H 03/28/19 05:47 Calcium 8.7 mg/dL (8.4-10.2) 03/28/19 05:47 Iron 13 ug/dL (37-170) L 03/25/19 08:18 TIBC 137 mcg/dL (250-450) L 03/25/19 08:18 505.7 ng/mL (13.0-400.0) H 03/25/19 08:18 0.20 mg/dL (0.1-1.2) 03/28/19 05:47 AST 13 units/L (5-40) 03/28/19 05:47 ALT 8 units/L (7-56) 03/28/19 05:47 46 units/L (35-129) 03/28/19 05:47 6.0 g/dL (6.3-8.2) L 03/28/19 05:47 3.2 g/dL (3.9-5) L 03/28/19 05:47 1.1 % 03/28/19 05:47 348 U/mL (<35) H 03/25/19 08:18 Vitamin B12 759.5 pg/mL (211-911) 03/25/19 08:18 19.59 ng/mL (7.3-26.0) 03/25/19 08:18 Straw (Yellow) 03/23/19 13:40 Clear (Clear) 03/23/19 13:40 6.0 (5.0-7.0) 03/23/19 13:40 Ur Specific [place] 1.010 (1.003-1.030) 03/23/19 13:40 <15 mg/dl mg/dL (Negative) 03/23/19 13:40 Neg mg/dL (Negative) 03/23/19 13:40 Neg mg/dL (Negative) 03/23/19 13:40 Sm (Negative) 03/23/19 13:40 Neg (Negative) 03/23/19 13:40 Neg (Negative) 03/23/19 13:40 < 2.0 mg/dL (<2.0) 03/23/19 13:40 Ur Leukocyte Esterase Sm (Negative) 03/23/19 13:40 9.0 /HPF (0.0-6.0) H 03/23/19 13:40 9.0 /HPF (0.0-6.0) 03/23/19 13:40 1+ /HPF (Negative) 03/23/19 13:40 54.1 mg/dL (0.1-20.0) H 03/23/19 13:40 74 mmol/L 03/23/19 13:40 Hep Bs Antigen Non-reactive (Negative) 03/23/19 13:28 Non-reactive (NonReactive) 03/23/19 13:28 Blood Type O POSITIVE 03/27/19 10:34 Antibody Screen Negative 03/27/19 10:34 Crossmatch See Detail 03/27/19 10:34 Active Medications - Current Medications Current Medications: Generic Name Dose Route Start Last Admin Trade Name Freq PRN Reason Stop Dose Admin Amlodipine Besylate 10 mg 03/28/19 10:00 Norvasc PO DAILY STEFFI Clonidine HCl 0.1 mg 03/23/19 12:33 03/27/19 21:27 Catapres PO 0.1 mg Q6HR PRN Administration Hypertension Clonidine HCl 0.1 mg 03/23/19 22:00 03/23/19 22:33 Catapres-Tts Patch TD 0.1 mg Tu STEFFI Administration Docusate Sodium 100 mg 03/26/19 23:45 03/27/19 21:27 Colace PO 100 mg BID STEFFI Administration Ferrous Sulfate 325 mg 03/26/19 22:00 03/27/19 21:27 Feosol PO 325 mg BID STEFFI Administration Gabapentin 300 mg 03/24/19 09:30 Neurontin PO Q8HR PRN Pain, Moderate (4-6) Hydralazine HCl 10 mg 03/24/19 07:27 03/25/19 12:10 Apresoline IV 10 mg Q4HR PRN Administration Hypertension Dextrose/Sodium Chloride 1,000 mls @ 150 mls/hr 03/23/19 17:00 03/28/19 02:00 D5/0.45ns IV 150 mls/hr DIRECT STEFFI Administration Ceftriaxone Sodium 1 gm in 50 mls @ 100 mls/hr 03/24/19 14:00 03/27/19 09:56 Rocephin/Ns 1 Gm/50 Ml IV 100 mls/hr Q24HR STEFFI Administration Protocol Metoclopramide HCl 10 mg 03/23/19 12:11 Reglan IV Q6H PRN N/V if NPO. Morphine Sulfate 2 mg 03/24/19 07:00 03/27/19 07:50 Morphine IV 2 mg Q4H PRN Administration Pain, Moderate (4-6) Morphine Sulfate 4 mg 03/24/19 08:44 03/27/19 21:27 Morphine IV 4 mg Q4H PRN Administration Pain , Severe (7-10) Naloxone HCl 0.1 mg 03/23/19 12:11 Narcan 0.4 Mg/1 Ml IV Q2MIN PRN Res Rate </= 8 or 02 SAT < 92% Ondansetron HCl 4 mg 03/23/19 12:11 03/24/19 12:00 Zofran IV 4 mg Q8H PRN Administration N/V unrelieved by Reglan Pantoprazole Sodium 40 mg 03/27/19 10:00 03/27/19 09:57 Protonix PO 40 mg DAILY STEFFI Administration Polyethylene Glycol 17 gm 03/26/19 23:07 03/27/19 17:02 Miralax 3350 PO 17 gm QDAY PRN Administration Constipation Potassium Chloride 40 meq 03/28/19 08:23 K-Dur PO 03/28/19 08:24 ONCE ONE Potassium Chloride 20 meq 03/28/19 10:00 K-Dur PO QDAY STEFFI Sodium Chloride 10 ml 03/23/19 22:00 03/27/19 21:33 Sodium Chloride Flush Syringe 10 Ml IV Not Given BID STEFFI Sodium Chloride 10 ml 03/23/19 14:51 03/24/19 12:01 Sodium Chloride Flush Syringe 10 Ml IV 10 ml PRN PRN Administration LINE FLUSH Spironolactone 25 mg 03/27/19 12:00 03/27/19 18:39 Aldactone PO 25 mg QDAY STEFFI Administration Nutrition/Malnutrition Assess - Dietary Evaluation Nutrition/Malnutrition Findings: Nutrition Notes Start: 03/24/19 16:47 Freq: Status: Active Protocol: Document 03/24/19 16:47 RM (Rec: 03/24/19 16:49 RM [id number]) Nutrition Notes Need for Assessment generated from: MD Order Initial or Follow up Brief Note Subjective/Other Information Consulted for HTN diet education. Pt already famliar w/diet but took handout. Nutrition Intervention Revisit per MD consult or patient Sign Off request:
--- NOTE | 2019-03-28 09:27 | Discharge Summary ---
Providers - Providers Date of Admission: 03/23/19 12:26 Date of discharge: 03/28/19 Attending physician: JUAN M MEDLEY 03/23/19 12:12 Consult to Physician [CONS] Routine Comment: Consulting Provider: COLTON HERRERA Physician Instructions: Reason For Exam: elevated creatinine 03/23/19 12:45 Consult to Physician [CONS] Routine Comment: Consulting Provider: ARBEN MANZO Physician Instructions: Reason For Exam: uncontrolled HTN 03/23/19 14:51 Consult to Dietitian/Nutrition [CONS] Routine Physician Instructions: Reason For Exam: Reason for Consult: Diet education 03/24/19 13:53 Consult to Physician [CONS] Routine Comment: Consulting Provider: ARMAAN FARMER Physician Instructions: Reason For Exam: hydronephrosis 03/24/19 19:13 Consult to Physician [CONS] Routine Comment: Consulting Provider: SHAYLA RAND Physician Instructions: Reason For Exam: Endocervical cancer 03/25/19 09:14 Physical Therapy Evaluation and Treat [CONS] Urgent Comment: Reason For Exam: deconditioning Primary care physician: NATASHA LOBO Hospitalization Reason for admission: pelvic pain and irregular menses Condition: Good Pertinent studies: Consults with Gen. surgery, neurology, hospitalist and hematology oncology. CT scan. Procedures: Supracervical hysterectomy with bilateral salpingectomy and appendectomy converted from attempted robotic hysterectomy. Ureteral stents placed. Hospital course: Please see dictated H&P and hospital notes for details. Patient underwent the above procedure for successfully with a Gen. surgery consult for serosal laceration of the intestines. Patient postoperative course was complicated by elevated creatinine and acute renal failure. Patient with bilateral hydro- nephrosis. Patient creatinine improved after placement of bilateral ureteral stents. Patient had also returned as adenocarcinoma with probable origin from the endocervix. Postoperatively the patient improved to show return of bowel functions and voiding successfully. Patient did have postoperative anemia. After several refuses of blood transfusion on postoperative day 4 the patient did have some dizziness and consented to blood transfusion. Patient received 1 of 2 ordered units of packed red blood cells refused to take the second unit. Her hemoglobin improved from 7.1-8.3. On day of discharge the patient denied any orthostatic symptoms and was pressing desire to go home. Disposition: DC/[place]-03 [facility] Time spent for discharge: 15 inutes - Discharge Diagnoses (1) SULTANA (acute kidney injury) Status: Acute (2) Adenocarcinoma Status: Acute Comment: Patient will follow with Dr. Medley in 3 days. Her final pathology will be reviewed with plans to refer her to [facility] oncology. (3) Anemia Status: Acute Qualifiers: Other causes of anemia: acute posthemorrhagic (4) Hydronephrosis Status: Acute Qualifiers: Hydronephrosis type: other Qualified Code(s): N13.39 - Other hydronephrosis Comment: Will be discharged with stents in place. (5) S/P abdominal supracervical subtotal hysterectomy Status: Acute (6) S/P appendectomy Status: Acute Core Measure Documentation - Palliative Care Palliative Care/ Comfort Measures: Not Applicable - Core Measures Any of the following diagnoses?: none Exam - Constitutional Vitals: Temp Pulse Resp BP Pulse Ox 98.0 F 84 18 133/81 99 03/28/19 04:03 03/28/19 04:03 03/28/19 04:03 03/28/19 04:03 03/28/19 04:03 General appearance: Present: no acute distress, obese - Cardiovascular Rhythm: regular - Extremities Extremities: no ischemia, No edema - Abdominal General gastrointestinal: Present: soft, tender (appropriately postop), other (healing incision without evidence of infection) - Rectal Rectal Exam: deferred - Integumentary Integumentary: Present: clear, warm, dry - Musculoskeletal Musculoskeletal: strength equal bilaterally - Neurologic Neurologic: CNII-XII intact, moves all extremities Plan Activity: advance as tolerated Diet: low fat Wound: open to air Additional Instructions: Patient office for fever, chills, nausea, vomiting or pain uncontrolled by pain medications. Patient instructed no heavy lifting for 6 weeks. No sex for 6 weeks. Follow up with: NATASHA LOBO MD [Primary Care Provider] - 7 Days Prescriptions: Docusate Sodium [Colace] 100 mg PO BID PRN #30 capsule PRN Reason: Constip Unreliev By Mom/Or Npo Ferrous Sulfate [Feosol 325 MG tab] 325 mg PO BID #90 tablet oxyCODONE /ACETAMINOPHEN [Percocet 5/325 mg] 1 - 2 tab PO Q4HR PRN #30 tablet PRN Reason: Pain
[2019-03-28] MEDS ORDERED: K-DUR PO SCH (10:00)
[2019-03-28] MEDS ORDERED: NORVASC PO SCH (10:00)
[2019-03-28] MEDS: PROTONIX PO SCH (11:32)
[2019-03-28] MEDS: FEOSOL PO SCH (11:33)
[2019-03-28] MEDS: ALDACTONE PO SCH (11:33)
[2019-03-28 21:29] LABS: ANA Screen, IFA Negative (Negative)
[2019-03-29 19:25] LABS: Myeloperoxidase Antibody <1.0 AI (<1.0)
== END 2019-03-28 13:56 | disposition home or self-care (01) | DRG 739 ==
LOC: OR 05:45 → IMCU 12:26 → 4A 03-25 13:23
PROVIDERS: ADMIT Obstetrics & Gynecology; ATTEND Obstetrics & Gynecology
PROC: 0UT74ZZ Resection of Bilateral Fallopian Tubes, Percutaneous Endoscopic Approach (ICD-10-PCS; 2019-03-23)
PROC: 0UN04ZZ Release Right Ovary, Percutaneous Endoscopic Approach (ICD-10-PCS; 2019-03-23)
PROC: 0DTJ0ZZ Resection of Appendix, Open Approach (ICD-10-PCS; 2019-03-23)
PROC: 0DQP0ZZ Repair Rectum, Open Approach (ICD-10-PCS; 2019-03-23)
PROC: 0UT90ZL Resection of Uterus, Supracervical, Open Approach (ICD-10-PCS; 2019-03-23)
PROC: 0UNF0ZZ Release Cul-de-sac, Open Approach (ICD-10-PCS; 2019-03-23)
PROC: 0UB00ZZ Excision of Right Ovary, Open Approach (ICD-10-PCS; 2019-03-23)
PROC: 8E0W4CZ Robotic Assisted Procedure of Trunk Region, Percutaneous Endoscopic Approach (ICD-10-PCS; 2019-03-23)
PROC: 0T788DZ Dilation of Bilateral Ureters with Intraluminal Device, Via Natural or Artificial Opening Endoscopic (ICD-10-PCS; 2019-03-24)
PROC: BT141ZZ Fluoroscopy of Kidneys, Ureters and Bladder using Low Osmolar Contrast (ICD-10-PCS; 2019-03-24)
PROC: 30233N1 Transfusion of Nonautologous Red Blood Cells into Peripheral Vein, Percutaneous Approach (ICD-10-PCS; principal; 2019-03-27)
DX: C53.0 Malignant neoplasm of endocervix (principal); N17.0 Acute kidney failure with tubular necrosis; D62 Acute posthemorrhagic anemia; N13.39 Other hydronephrosis; E87.0 Hyperosmolality and hypernatremia; E44.0 Moderate protein-calorie malnutrition; K80.20 Calculus of gallbladder without cholecystitis without obstruction; C52 Malignant neoplasm of vagina; N18.9 Chronic kidney disease, unspecified; D50.9 Iron deficiency anemia, unspecified; E87.6 Hypokalemia; I12.9 Hypertensive chronic kidney disease with stage 1 through stage 4 chronic kidney disease, or unspecified chronic kidney disease; N83.201 Unspecified ovarian cyst, right side; E66.9 Obesity, unspecified; N80.3 Endometriosis of pelvic peritoneum; K57.30 Diverticulosis of large intestine without perforation or abscess without bleeding; N92.5 Other specified irregular menstruation; N93.8 Other specified abnormal uterine and vaginal bleeding; N94.6 Dysmenorrhea, unspecified; Z82.49 Family history of ischemic heart disease and other diseases of the circulatory system; Z88.6 Allergy status to analgesic agent; Z79.899 Other long term (current) drug therapy; Y92.098 Other place in other non-institutional residence as the place of occurrence of the external cause; Z68.30 Body mass index [BMI] 30.0-30.9, adult; Z71.3 Dietary counseling and surveillance; N39.8 Other specified disorders of urinary system; Z53.31 Laparoscopic surgical procedure converted to open procedure
CPT/HCPCS: 36415; 64450; 74176; 74420; 76770; 80048; 80053; 81001; 81025; 82570; 82607; 82728; 82747; 83550; 84300; 85014; 85018; 85025; 86021; 86038; 86160; 86304; 86706; 86803; 86850; 86900; 86901; 86920; 87086; 88302; 88304; 88305; 88307; 88309; 88341; 88342; 93005; 93010; 94760; G0378; A4217; C1758; C1765; C1769; C2617; C9113; J0360; J0690; J0696; J1100; J1170; J2250; J2270; J2370; J2405; J2704; J2916; J3010; J3480; J7040; J7120; P9016; P9047; Q9967

== ENCOUNTER 2019-06-24 09:19 | Day surgery (SDC) | payer BC ==
[2019-06-24] MEDS ORDERED: ZOFRAN IV PRN (10:00)
[2019-06-24] MEDS ORDERED: LACTATED RINGERS 1,000 ML IV SCH (10:00)
[2019-06-24] MEDS ORDERED: SUBLIMAZE IV PRN (10:00)
--- NOTE | 2019-06-24 10:09 | Anesthesia Day of Surgery ---
Anesthesia Day of Surgery - Day of Surgery Patient Examined: Yes Patient H&P Reviewed: Yes Patient is NPO: Yes
--- NOTE | 2019-06-24 10:13 | Anesthesia Consultation ---
Anesthesia Consult and Med Hx Date of service: 06/24/19 - Airway Anesthetic Teeth Evaluation: Good ROM Head & Neck: Adequate Mental/Hyoid Distance: Adequate Mallampati Class: Class II Intubation Access Assessment: Good - Pre-Operative Health Status ASA Pre-Surgery Classification: ASA2 Proposed Anesthetic Plan: General - Pulmonary Hx Smoking: No Hx Respiratory Symptoms: No Hx Sleep Apnea: No (HSEREEN PRE SCREEN LOW RISK) - Cardiovascular System Hx Hypertension: Yes (X 30 YRS) Hx Heart Attack/AMI: No Hx Percutaneous Transluminal Coronary Angioplasty (PTCA): No Hx Cardia Arrhythmia: Yes (LBBB; chronic) Hx Pacemaker: No Hx Internal Defibrillator: No - Central Nervous System CVA: No Hx Psychiatric Problems: No - Gastrointestinal Hx Gastroesophageal Reflux Disease: No - Endocrine Hx Renal Disease: Yes (elevated creatitine without known hx CKD. Hydronephrosis on imaging.) Hx Liver Disease: No Hx Insulin Dependent Diabetes: No Hx Non-Insulin Dependent Diabetes: No Hx Thyroid Disease: No - Hematic Hx Anemia: Yes - Other Systems Hx Cancer: Yes (Cervical-WITH METS TO OVARY,VAGINA,PERITONEUM) Hx Obesity: No - Additional Comments Anesthesia Medical History Comments: [id number]
[2019-06-24] MEDS ORDERED: VERSED IV NR (11:00)
[2019-06-24] MEDS ORDERED: ANCEF/STERILE WATER 2 GM/20 ML IV NR (11:00)
[2019-06-24] MEDS ORDERED: XYLOCAINE MPF 2% ONE (11:09)
[2019-06-24] MEDS ORDERED: SUBLIMAZE ONE (11:09)
[2019-06-24] MEDS ORDERED: VERSED ONE (11:09)
[2019-06-24] MEDS ORDERED: DIPRIVAN 10 MG/ML IV ONE (11:09)
[2019-06-24] MEDS ORDERED: WATER FOR IRRIG STERILE IR ONE ×4 (11:09→12:26)
--- NOTE | 2019-06-24 12:14 | Post Operative Note ---
Date of procedure: 06/24/19 Pre-op diagnosis: bilat hydro Post-op diagnosis: same Findings: stents Procedure: cysto stent exchange Anesthesia: ADY Surgeon: ARMAAN FARMER Estimated blood loss: none Pathology: none Condition: stable Disposition: PACU
--- NOTE | 2019-06-24 12:15 | Discharge Summary ---
Short Stay Discharge Plan Activity: other (no straining ) Weight Bearing Status: Full Weight Bearing Diet: regular Special Instructions: other (inc fluids ) Follow up with: NATASHA LOBO MD [Primary Care Provider] - 7 Days ARMAAN FARMER MD [Staff Physician] - 6 Weeks
--- NOTE | 2019-06-24 13:03 | Operative Report ---
PREOPERATIVE DIAGNOSES: 1. Bilateral hydronephrosis. 2. Metastatic cancer. POSTOPERATIVE DIAGNOSES: 1. Bilateral hydronephrosis. 2. Metastatic cancer. PROCEDURE: Cystoscopy, bilateral stent exchange. SURGEON: Dr. Aquino. ANESTHESIA: General. 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 She had stents placed. She now is getting chemo for stent exchange. DESCRIPTION OF PROCEDURE: The patient was brought to the operating room, placed on the operating table. Following induction of anesthesia, she was placed in lithotomy position, prepped and draped in usual sterile fashion. Cystoscopy showed no bladder masses. The right stent was withdrawn and a wire coiled in the kidney. Stent was easily exchanged and symmetrically on the left side, it was replaced. The patient tolerated the procedure well. No significant complications. She was brought to recovery in stable condition. JOB# [id number] MANUEL/NÉSTOR
[2019-06-24 13:45] VITALS: BP 141/95
--- NOTE | 2019-06-24 15:08 | XRay Report ---
INTRAOPERATIVE FLUOROSCOPY: ABDOMEN INDICATION / CLINICAL INFORMATION: BILAT HYDRONEPHROSIS/ MET CA. TECHNIQUE: Intraoperative spot images were obtained during the procedure. FINDINGS: Appeals Manager image demonstrates bilateral ureteral stents. Bilateral ureteral stent exchange was performed with expected appearance at the end of the procedure. Fluoroscopy Time: 1 minute 3 seconds. Fluoroscopy Images: 2. Signer Name: James Urbina MD Signed: 06/24/2019 3:04 PM Workstation Name: [id number]
--- NOTE | 2019-06-24 19:11 | Post Anesthesia Evaluation ---
- Post Anesthesia Evaluation Patient Participated: Yes Airway Patent: Yes Stable Respiratory Function: Yes Nausea/Vomiting: No Temp > 96.8F: Yes Pain Manageable: Yes Adequeate Hydration: Yes Anesthesia Complications: No Block Receding Appropriately: Not Applicable Patient on Ventilator: No
== END 2019-06-24 14:30 | disposition home or self-care (01) ==
LOC: OR 09:19
PROVIDERS: ATTEND Urology
DX: N13.30 Unspecified hydronephrosis (principal); C79.9 Secondary malignant neoplasm of unspecified site; D64.9 Anemia, unspecified; I10 Essential (primary) hypertension; I42.9 Cardiomyopathy, unspecified; Z79.899 Other long term (current) drug therapy; Z90.711 Acquired absence of uterus with remaining cervical stump; Z98.890 Other specified postprocedural states; Z90.49 Acquired absence of other specified parts of digestive tract; Z85.41 Personal history of malignant neoplasm of cervix uteri; Z90.710 Acquired absence of both cervix and uterus; Z86.2 Personal history of diseases of the blood and blood-forming organs and certain disorders involving the immune mechanism
CPT/HCPCS: 52332; 74018; A4217; C1758; C1769; C2617; J2250; J2704; J3010; J7120; Q9967

== ENCOUNTER 2019-09-20 08:43 | Day surgery (SDC) | payer BC ==
--- NOTE | 2019-09-20 09:41 | Anesthesia Consultation ---
Anesthesia Consult and Med Hx Date of service: 09/20/19 - Airway Anesthetic Teeth Evaluation: Good ROM Head & Neck: Adequate Mental/Hyoid Distance: Adequate Mallampati Class: Class II Intubation Access Assessment: Probably Good (previous easy LMA 4) - Pulmonary Exam CTA: Yes - Cardiac Exam Cardiac Exam: RRR - Pre-Operative Health Status ASA Pre-Surgery Classification: ASA3 Proposed Anesthetic Plan: General - Pulmonary Hx Smoking: No Hx Respiratory Symptoms: No Hx Sleep Apnea: No (SHEREEN PRE SCREEN LOW RISK) - Cardiovascular System Hx Hypertension: Yes (took lisinopril, metoprolol, amlodipine today) Hx Heart Attack/AMI: No Hx Percutaneous Transluminal Coronary Angioplasty (PTCA): No Hx Cardia Arrhythmia: Yes (chronic LBBB) Hx Pacemaker: No Hx Internal Defibrillator: No - Central Nervous System CVA: No Hx Psychiatric Problems: Yes (anxiety) - Gastrointestinal Hx Gastroesophageal Reflux Disease: No - Endocrine Hx Renal Disease: No Hx Liver Disease: No Hx Insulin Dependent Diabetes: No Hx Non-Insulin Dependent Diabetes: No Hx Thyroid Disease: No - Hematic Hx Anemia: Yes - Other Systems Hx Alcohol Use: No (WINE) Hx Substance Use: No Hx Cancer: Yes (metastatic cervical cancer, last chemo 09/10/19) Hx Obesity: No - Additional Comments Anesthesia Medical History Comments: No hx anesthetic complications.
[2019-09-20] MEDS ORDERED: fentaNYL 100 MCG/2 ML INJ IV PRN (09:42)
--- NOTE | 2019-09-20 09:42 | Anesthesia Day of Surgery ---
Anesthesia Day of Surgery - Day of Surgery Patient Examined: Yes Patient H&P Reviewed: Yes Patient is NPO: Yes Beta Blockers: Yes
[2019-09-20] MEDS ORDERED: MIDAZOLAM 2 MG/2 ML INJ IV NR (10:00)
[2019-09-20] MEDS ORDERED: LACTATED RINGERS 1,000 ML IV SCH (10:00)
[2019-09-20 10:26] LABS: Hematocrit 24.2 % (30.3-42.9); Hemoglobin 8.4 gm/dl (10.1-14.3); Mean Corpuscular HGB Conc 35 % (30-34); Mean Corpuscular Volume 101 fl (79-97); Platelet Count 155 K/mm3 (140-440); Red Blood Count 2.39 M/mm3 (3.65-5.03); Red Cell Distribution Width 17.3 % (13.2-15.2)
[2019-09-20] MEDS ORDERED: ceFAZolin/STERILE WATER 2 GM/20 ML SYRINGE IV NR (10:35)
[2019-09-20 10:46] LABS: BUN/Creatinine Ratio 13; Blood Urea Nitrogen 9 mg/dL (7-17); Calcium 9.2 mg/dL (8.4-10.2); Hemolysis Index 5
[2019-09-20] MEDS ORDERED: ONDANSETRON 4 MG/2 ML INJ ONE (11:00)
[2019-09-20] MEDS ORDERED: PROPOFOL 200 MG/20 ML VIAL IV ONE (11:10)
[2019-09-20] MEDS ORDERED: LIDOCAINE MPF (2%) 20 MG/1 ML VIAL 5 ML ONE (11:10)
[2019-09-20] MEDS ORDERED: fentaNYL 100 MCG/2 ML INJ ONE (11:10)
--- NOTE | 2019-09-20 12:00 | Discharge Summary ---
Short Stay Discharge Plan Activity: other (inc fluids ) Weight Bearing Status: Full Weight Bearing Diet: regular Special Instructions: other Durable Medical Equipment Needed Upon Discharge: other (bilat stent ) Follow up with: NATASHA LOBO MD [Primary Care Provider] - 7 Days ARMAAN FARMER MD [Staff Physician] - 6 Weeks
--- NOTE | 2019-09-20 12:01 | Post Operative Note ---
Date of procedure: 09/20/19 Pre-op diagnosis: bilat hydro Post-op diagnosis: same Procedure: cysto stent exchange Anesthesia: GETA Surgeon: ARMAAN FARMER Estimated blood loss: none Pathology: none Condition: stable Disposition: PACU
--- NOTE | 2019-09-20 12:43 | XRay Report ---
Abdomen one view. 09/20/2019. HISTORY: Hydronephrosis. COMPARISON: 06/24/2019. FINDINGS: Bilateral double-J stent placement. Since appearance satisfactory position. Signer Name: Italo Tobias MD Signed: 09/20/2019 12:39 PM Workstation Name: [id number]
--- NOTE | 2019-09-20 15:27 | Operative Report ---
PREOPERATIVE DIAGNOSES: Bilateral hydronephrosis, pelvic tumor, metastatic cancer, adenopathy and retroperitoneal inflammation. PREOPERATIVE DIAGNOSES: Bilateral hydronephrosis, pelvic tumor, metastatic cancer, adenopathy and retroperitoneal inflammation. PROCEDURE: Cystoscopy, bilateral stent exchange. SURGEON: Dr. Aquino. ANESTHESIA: General. FINDINGS: This is a woman who is 48 with metastatic cancer. She is still getting a couple of more courses of chemo. She now presents for cystoscopy. DESCRIPTION OF PROCEDURE: The patient was brought to the operating room and placed on the operating table. Following induction of anesthesia, placed in lithotomy position, prepped and draped in usual sterile fashion. Her left stent was grasped, it was in good position. A wire was threaded through it and it was exchanged for a 6 x 24. In identical fashion, we did the same on the right. The patient tolerated the procedure well, no significant complications, brought to recovery in stable condition. JOB# [id number] MANUEL/NÉSTOR
[2019-09-20 21:09] VITALS: BP 128/82
== END 2019-09-20 08:44 | disposition home or self-care (01) ==
LOC: OR 08:43
PROVIDERS: ATTEND Urology
DX: N13.30 Unspecified hydronephrosis (principal); I10 Essential (primary) hypertension; D64.9 Anemia, unspecified; I42.9 Cardiomyopathy, unspecified; F41.9 Anxiety disorder, unspecified; Z90.711 Acquired absence of uterus with remaining cervical stump; Z98.890 Other specified postprocedural states; Z79.899 Other long term (current) drug therapy; Z90.49 Acquired absence of other specified parts of digestive tract; Z90.710 Acquired absence of both cervix and uterus; Z87.442 Personal history of urinary calculi; Z72.89 Other problems related to lifestyle; Z86.2 Personal history of diseases of the blood and blood-forming organs and certain disorders involving the immune mechanism
CPT/HCPCS: 36415; 52332; 74018; 80048; 85027; 88302; C2617; J2250; J2405; J2704; J3010; J7120